=== PATIENT | male | born 1940 | race Caucasian/White ===

== ENCOUNTER 2025-01-26 05:55 | Day surgery (SDC) | payer BC, SELFPAY ==
[2024-12-29 08:34] VITALS: BMI 37.1
[2024-12-29 08:52] LABS: Hematocrit 41.0 % (39.0-52.0); Hemoglobin 13.0 g/dL (13.0-18.0); Mean Corp Hgb Conc. 31.7 g/dL (33.0-37.0); Mean Corpuscular Volume 85.4 fL (80.0-94.0); Nucleated Red Blood Cells % 0 % (-); Platelet Count 209 10^3/uL (130-400); Red Cell Dist. Width 16.5 % (11.5-14.5)
[2024-12-29 09:19] LABS: ALT (SGPT) 27 U/L (0-50); AST (SGOT) 21 U/L (17-59); Albumin 3.8 g/dl (3.5-5.0); Alkaline Phosphatase 73 U/L (38-126); Blood Urea Nitrogen 16 mg/dl (9-20); Calcium 8.7 mg/dl (8.4-10.2); Carbon Dioxide 25 mmol/L (22-30); Chloride 108 mmol/L (98-107); Estimated Creatinine Clearance 83 ml/min; Glucose 160 mg/dl (70-99); Magnesium 1.9 mg/dl (1.6-2.3); Potassium 4.1 mmol/L (3.5-5.1); Sodium 141 mmol/L (135-145); Total Protein 6.3 g/dl (6.3-8.2); eGFR > 60.00
[2025-01-26] VITALS (11 sets, daily range): BP systolic 98–156; BP diastolic 60–113; BMI 35.5
[2025-01-26 07:31] LABS: Glucose - Point of Care 134 mg/dl (70-99)
[2025-01-26 09:03] LABS: ACT-LR - POC 355 Seconds (116-155)
--- NOTE | 2025-01-26 09:26 | ITS.CL.ABL ---
[facility] - Ablation
Ablation
Procedure Report:
ELECTROPHYSIOLOGY ABLATION STUDY
DATE:: January 26, 2025�����������������������������REFERRING: Dr. Rajinder aj
INDICATION: Persistent supraventricular tachycardia in the form of atrial fibrillation.��Presents for pulmonary vein isolation after congestive heart failure admission with A-fib and rapid ventricular response. We just recently performed amiodarone
loading
HISTORY: See H and P.��As above
ANTIARRHYTHMIC DRUG: Amiodarone
PRE-PROCEDURE DONOVAN: No intracardiac thrombus on intracardiac ultrasound
PRESENTING RHYTHM: Atrial fibrillation. On surface appeared somewhat organized even perhaps suggesting atrial flutter but intracardiac recordings demonstrated atrial fibrillation
'TIME-OUT':��called and confirmed.
SEDATION/ANESTHESIA:��provided via the anesthesia department using general anesthesia (LMA).
INTRAVENOUS/ARTERIAL ACCESS:
Right femoral venous -8Fr
Left femoral venous - 8 Fr, 6 Fr
Due to body habitus the right femoral vein presented a challenge in advancing any hardware. Ultimately an Amplatz superstiff long wire was placed through the right femoral venous access site which was at the femoral head and serial dilation with 7
Samoan, 9 Samoan, 11 Samoan, 14 Samoan and ultimately an 18 Samoan dilator with multiple passes allowed the right femoral vein to accept an 18 Samoan short sheath through which we put the fair drive sheath. Euizgt-pd-uules suture was placed in the
right femoral vein and kwfzpt-yy-fjxzi suture failed in the left groin and manual pressure was held. Extended pressure hold was given due to body habitus
Ultrasound guidance for bilateral femoral vein access was utilized by me to obtain access with demonstration of normal anatomy
CHADS-VASC Score:
HAS-Bled Score
PROCEDURE:
1.��A decapolar CS catheter was placed within the CS for mapping and pacing.��This was also used as the reference catheter for the 3-D map.
2. The intracardiac ultrasound catheter was positioned in the RA to identify the FO for targeting of transseptal puncture, assist��in identification of the pulmonary vein ostia, monitoring pre and post ablation pulmonary vein flow velocities,
monitoring for 'bubble' formation during RF application as a sign of thermal injury,��and to monitor for pericardial effusion during mapping and ablation procedure.���Left atrial size, LV ejection fraction, and pulmonary vein flows were monitored
pre and post ablation procedure. The other valves were inspected and found to be free of significant regurgitation or stenosis.
3.��Half of the calculated heparin bolus was administered prior to the first transeptal puncture.��Transseptal puncture was performed to diagnose RA and LA pressure so that safety of LA mapping and ablation could be further assessed, and to access
the left atrium and pulmonary veins for mapping and ablation.��This entailed advancing an 8 Fr SL-1 sheath with dilator into the superior vena cava and withdrawing both (monitoring intracardiac ultrasound, fluoroscopy and tip pressure) with the tip
oriented toward the atrial septum.��The fossa ovalis was engaged (indicated by sudden displacement of the sheath tip as well as tenting of the fossa seen on intracardiac ultrasound).��Left atrial access required a pass with the Brockenbrough needle
extended.��Left atrial catheter position was confirmed by pressure monitoring (RA mean pressure 8 mm Hg and LA mean presure 12 mm Hg), LA saturation (99%),��as well as fluoroscopy.��The sheath was advanced over the dilator and positioned in the left
atrium.��This procedure was repeated for the Agilis sheath.��The remainder of the calculated heparin bolus was administered and heparin was
infused to maintain ACT at 300 -350 seconds throughout the case.
4.��RA pacing was performed via the proximal decapolar poles and LA pacing was performed via the distal decapolr poles.
5. A quadrapolar catheter was first positioned at the His position for His Bundle recording which was tagged via the 3-D Navex sytem, and then passed to the RVA for RV pacing and recording.
6. The Penta spline and grid were placed in each of the LIPV, LSPV, RSPV and the RIPV.��
7.��Next, a 3-D map was created using Navex.���A 3-D reconstructed CT image was compared to the 3-D Navex map to assist in anatomic interpretation, mapping and ablation.��The CT image and the NavX image were fused.
8. A total of 58 lesions were given with all of in basket pose to the 4 pulmonary veins and flower opposed to the roof posterior wall and floor of the left atrium. Atrial fibrillation persisted beyond the all of in basket poses send pulmonary vein
isolation with entrance block in the roof posterior wall and left atrial floor lines were given with A-fib that persisted despite all of these lesion sets. The patient was then converted to sinus bradycardia with a 300 J synchronized biphasic shock
and entrance next block was confirmed in the posterior wall roof and floor the left atrium as well as the 4 pulmonary veins. EP study post procedure did not demonstrate any other tachyarrhythmia.
9. Normal sinus node AV node function were noted. AV Wenke block less than 400 ms. Prior history of TAVR
TOTAL FLOURO TIME: 12.1 minutes
TOTAL RF DURATION: 0 minutes
REVERSAL OF HEPARIN: 40 mg of protamine, slow IV administration
COMPLICATIONS:
None
Intracardiac US shows no pericardial effusion post ablation.
SUMMARY:��
Complex left atrial mapping and ablation.
Isolation of all 4 pulmonary veins as well as left atrial roof posterior wall and floor of the left atrium. The patient was noninducible further tachyarrhythmia.
RECOMMENDATIONS:
1. Ambulate for 4 hours after prolonged venous hold due to body habitus
2. Resume anticoagulation
3.��Continue amiodarone for 6 to 12 months at current dose and if maintains sinus rhythm consider stopping
4.��Will follow throughout the day to consider same-day discharge
Copy to: Dr. Rajinder aj
[2025-01-26 11:30] LABS: Glucose - Point of Care 174 mg/dl (70-99)
== END 2025-01-26 15:15 | disposition home or self-care (01) ==
LOC: CATH 05:55
PROVIDERS: ATTENDING PHYSICIAN Internal Medicine Cardiovascular Disease; FAMILY PHYSICIAN Internal Medicine; OTHER PHYSICIAN Internal Medicine Cardiovascular Disease
DX: I48.0 Paroxysmal atrial fibrillation (principal); I11.0 Hypertensive heart disease with heart failure; E78.5 Hyperlipidemia, unspecified; I35.0 Nonrheumatic aortic (valve) stenosis; E11.59 Type 2 diabetes mellitus with other circulatory complications; G47.33 Obstructive sleep apnea (adult) (pediatric); N40.0 Benign prostatic hyperplasia without lower urinary tract symptoms; M48.00 Spinal stenosis, site unspecified; M10.9 Gout, unspecified; E66.9 Obesity, unspecified; Z68.37 Body mass index [BMI] 37.0-37.9, adult; Z79.899 Other long term (current) drug therapy; Z79.01 Long term (current) use of anticoagulants
CPT/HCPCS: C1732; C1894; C1730; C1769; C1892; C1759; 36415; 75572; 80053; 82962; 83735; 83880; 85025; 85347; 86850; 86900; 86901; 93005; 93656; 93657; C1766; Q9967

== ENCOUNTER 2025-04-02 21:06 | Inpatient (IN) | payer BC, SELFPAY ==
[2025-04-02 21:10] VITALS: BP 126/66
[2025-04-02 21:28] VITALS: BMI 34.0
[2025-04-02 21:57] VITALS: BMI 34.0
--- NOTE | 2025-04-02 22:15 | HPS.HSE ---
Family Physician
-
Family Physician: Tomas Ortega
Chief Complaint
-
back pain
History of Present Illness
84-year-old male past medical history of severe aortic stenosis status post TAVR in 2022, chronic atrial fibrillation status post cardioversion and ablation, diastolic CHF, hypertension, hyperlipidemia, type 2 diabetes, obesity, previous alcohol use
disorder, obstructive sleep apnea, gout, spinal stenosis, chronic back pain, presenting as a transfer from [facility] for endocarditis.
Patient has been having lower back pain ongoing for several months. He saw his orthopedic physician Dr. Huerta for worsening back pain who ordered an outpatient MRI showed findings suspicious for discitis. He has been having fevers and chills and
sweats for the past month. He did not have any numbness or tingling of the lower extremities or gait dysfunction or incontinence. He was advised to come to the emergency room and came to [facility] on 03/31. He was started on empiric
vancomycin/cefepime for presumed endocarditis. He had blood cultures positive for Enterococcus faecalis. He had an echocardiogram which was unremarkable. He had DONOVAN today which showed findings suggesting of left atrial abscess. Patient was
transferred to [facility] for cardiothoracic evaluation.
Patient was seen by neuro and ortho for
He also has chronic right lower extremity edema but has recently had worsening left lower extremity edema. He had venous ultrasound which was negative for DVT at [facility]. He was diuresed.
He denies any chest pain or shortness of breath or dizziness or syncope. He denies any blood in stool or black stool. He denies any back pain at the current time.
He used to drink significant amount of alcohol in the past but only drinks occasionally at the current time. Denies smoking history. He denies history of IV drug use.
Medical History
Past Medical History
Past Medical History: Reports Other (evere aortic stenosis status post TAVR in 2022, chronic atrial fibrillation status post cardioversion and ablation, diastolic CHF, hypertension, hyperlipidemia, type 2 diabetes, obesity, previous alcohol use
disorder, obstructive sleep apnea, gout, spinal stenosis, chronic back pain)
Past Surgical History: Reports Other (TAVR)
Social History
Tobacco: Non-smoker
Alcohol: Occasional
Drug: None
Family History
Family History: Not pertinent
Allergies / Home Medications
Allergies reflects when Allergies were last updated in [facility].
Home Medications with original date entered in [facility]
Allergy/Medication List:
Allergies
Allergy/AdvReac Type Severity Reaction Status Date / Time
No Known Allergies Allergy Verified 12/25/24 08:51
Home Medications
finasteride 5 mg tablet 5 mg PO HS 06/05/22
amiodarone 200 mg tablet 200 mg PO DAILY 12/25/24
apixaban 5 mg tablet (Eliquis) 5 mg PO BID 12/25/24
cholecalciferol (vitamin D3) 125 mcg (5,000 unit) tablet (Vitamin D3) 125 mcg PO DAILY 12/25/24
diltiazem HCl 180 mg capsule,24 hr,extended release 180 mg PO DAILY 12/25/24
empagliflozin 25 mg tablet (Jardiance) 25 mg PO DAILY 12/25/24
metoprolol succinate 100 mg tablet,extended release 24 hr 100 mg PO DAILY 12/25/24
rosuvastatin 10 mg tablet 10 mg PO DAILY 12/25/24
furosemide 20 mg tablet 60 mg PO DAILY 01/26/25
metformin 500 mg tablet 1,000 mg PO BID Diabetes 01/26/25
metoprolol succinate 50 mg tablet,extended release 24 hr 50 mg PO QPM 01/26/25
Review of Systems
-
History Source: Patient
A 12 point ROS was completed and negative except as noted: Yes
Constitutional: Reports No Symptoms
EENT: Reports No Symptoms
Respiratory: Reports No Symptoms
Cardiac: Reports No Symptoms
Abdomen/GI: Reports No Symptoms
: Reports No Symptoms
Musculoskeletal: Reports No Symptoms
Skin: Reports No Symptoms
Neurological: Reports No Symptoms
Endocrine: Reports No Symptoms
Hematologic/Lymphatic: Reports No Symptoms
Psych: Reports No Symptoms
Physical Exam
Vital Signs
Vital Signs
Temp Pulse Resp BP Pulse Ox
98.6 F 54 16 126/66 100
04/02/25 21:27 04/02/25 21:15 04/02/25 21:27 04/02/25 21:10 04/02/25 21:27
Physical Exam
General: Well Developed, Well Nourished and No Apparent Distress
HEENT: NormoCephalic, Moist mucous membranes and Atraumatic
Respiratory: Clear
Cardiac: S1/S2, Regular Rhythm and Murmur; No Rub
GI: Soft, Non Tender, Non Distended and Normal Bowel Sounds; No Organomegaly
Rectal: Deferred by Provider
Musculoskeletal: No Clubbing, No Cyanosis and No Edema
Skin: No Rash
Neuro: Nonfocal/grossly intact
Data Reviewed
-
Lab Data: Labs Reviewed by me
Old Records: Reviewed
Impression/Plan
-
IMPRESSION:
PLAN:
# Enterococcus faecalis bacteremia
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
-DONOVAN showed 3 x 0.5 cm laminar shaped heterogeneous echogenicity in the left atrium from anterior mitral valve insertion consistent with abscess
- Recheck blood cultures
- Continue vancomycin/ceftriaxone
- ID consulted
- Cardiology consulted
- Cardiothoracic surgery consulted
# L2-L3 disc edema possible discitis
- Patient was evaluated by orthopedics at [facility] who considered aspiration of the disc but they thought endocarditis was more likely the source of patient's presentation
-no neurological symptoms
- continue tramadol
# Severe aortic stenosis status post TAVR in 2022
# Left lower extremity lymphedema/less likely cellulitis
-Weeping from left lower extremity from edema
-Venous ultrasound was negative for DVT
- Already on vancomycin/cefepime
Chronic HFrEF
- Continue Lasix 40 mg IV daily
- Continue Jardiance, metoprolol
Chronic atrial fibrillation status post cardioversion/ablation
- Continue amiodarone
- Hold Eliquis, switch to heparin drip in case cardiothoracic surgery is recommended
#Worsening of chronic anemia
-Hemoglobin trend was 9.8 to 8.5 to 9.3
- Transfuse for hemoglobin under 8
- Patient denies any blood in the stool or black stool
Essential hypertension
Hyperlipidemia
- Continue statin
Type 2 diabetes
- Hold metformin
- Insulin sliding scale
- Continue Jardiance
Obesity
Prior alcohol use disorder
- No longer drinks significant alcohol
Obstructive sleep apnea
Gout
Spinal stenosis/chronic back
BPH
- Continue finasteride
Former alcohol use disorder
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
Full code
DVT prophylaxis�heparin drip
Cardiac diet
--- NOTE | 2025-04-02 22:27 | PTCARENOTE ---
Pt admitted to room 2252. Pt NSR on monitor VSS. AAO x4. Pt denies SOB, c/o back/neck pain with movements. Pt was ambulating with x 1 assist and RW. Pt oriented to the room. Call funes within reach
[2025-04-02 23:16] LABS: Hematocrit 27.7 % (39.0-52.0); Hemoglobin 8.8 g/dL (13.0-18.0); Mean Corp Hgb Conc. 31.8 g/dL (33.0-37.0); Mean Corpuscular Volume 86.6 fL (80.0-94.0); Nucleated Red Blood Cells % 0 % (-); Platelet Count 265 10^3/uL (130-400); Red Cell Dist. Width 15.0 % (11.5-14.5)
[2025-04-02 23:51] LABS: Blood Urea Nitrogen 13 mg/dl (9-20); Calcium 8.2 mg/dl (8.4-10.2); Carbon Dioxide 32 mmol/L (22-30); Chloride 99 mmol/L (98-107); Estimated Creatinine Clearance 95 ml/min; Glucose 149 mg/dl (70-99); Magnesium 2.1 mg/dl (1.6-2.3); Potassium 3.8 mmol/L (3.5-5.1); Sodium 135 mmol/L (135-145); eGFR > 60.00
--- NOTE | 2025-04-03 00:19 | CONSULT.CT ---
Consultation
-
Date/Time Consultation Requested: 04/02/25, 23:15
Date/Time Consultation Performed: 04/02/25, 23:30
Requesting Provider: Dr. Carias
Performing Provider: Rafa Hebert PA-C for Dr. Eng
Reason for Consultation: Endocarditis
Patient History
Physicians
Family Physician: Dr. Tomas Ortega
Outpatient Electrical Equipment Tester: Dr. Patel
Inpatient Electrical Equipment Tester: Dr. Jarrell
History of Present Illness
Mr Huynh is a very pleasant 84 yo gentleman with hx of TAVR on 07/13/22 at , chronic paroxysmal a-fib with PVI on 01/26/25, on Eliquis, chronic RBBB, chronic diastolic CHF, DM II, HTN, HLD, ARNIE, DJD with spinal stenosis/chronic lower back pain,
hx of epidural injections, Psoriasis, BPH. He presented to [facility] on 03/31/25 for evaluation of acute on chronic low back pain. Over the past 1-2 months, he has had exacerbation of his back and neck pain and was seen by his orthopedic physician,
Bradley. Outpatient MRI of his back was suggestive of L3-L4 discitis. Over the last 1 month, he also had intermittent fever with chills and likely rigors, followed by feeling hot and sweaty. These sxs have increased in frequency over the last couple of
weeks. He denies having any CP, SOB, lightheadedness, rash or nausea. He noticed constipation over past 4 months and requires stool softener or MOM. His weight is down 10 lbs from last admission on 01/26/25 and 44 lbs from his TAVR admission on
07/14/22.
He was found to have leukocytosis with bandemia and markedly elevated inflammatory markers. He also has new anemia, elevated high-sensitivity trops 51/52 and new 1st degree AVB. Of note, he has chronic RBBB. Blood cultures were positive for
Enterococcus Faecalis, He was treated with Vancomycin and Cefepime. He also had elevated BNP 522 and was treated with 40 iv Lasix daily. He has significant b/l lower extremity edema with weeping and some warmth on the R. US at [facility] ruled out DVT b/l
Echo on 04/01/25 revealed LVEF 60-65%, moderately dilated left atrium, mild mitral valve regurgitation, mildly elevated pulmonary artery systolic pressure. Aortic valve was not well-visualized, appeared to be bioprosthetic TAVR valve with only
trivial aortic insufficiency and elevated mean gradient of 26 mmHg
DONOVAN on 04/02/25 revealed moderately dilated left atrium. There was 3 x 0.5 cm laminar shaped heterogenous echogenicity in the left atrium from anterior mitral valve insertion. This can be consistent with abscess. Less likely thrombus. No obvious
fistula was identified. Bioprosthetic aortic valve was identified. Visualization was limited due to acoustic shadow but left coronary leaflet was thickened with echogenicity. No significant AI was noted. . There was normal RV and LV function and
mild MR.
Mr Huynh was transferred to on 04/02 for further evaluation of endocarditis by CT surgery.
Past Medical History
Past Medical History: Atrial Fib (on Eliquis at home), BPH, CHF, HTN, Hypercholesterolemia, NIDDM, ARNIE (uses CPAP) and Valvular Disease (-hx of severe with TAVR on 07/13/22 at )
-Chronic RBBB
-OA/DJD/Spinal stenosis with chronic back pain
-Class 2 obesity
-Psiriasis
-Gout
-Chronic thrombocytopenia
-Urinary frequency
Past Surgical History
-TAVR on 07/13/22 at
-PVI by Dr. Duran on 01/26/25
-R patellar tendon rupture repair
-Epidural injections for lower back pain by Dr. Huerta
Dental History
-denies any recent dental procedures
Family History
Mother: N/A
Social History
Alcohol: Former
Drug: None
Tobacco: Smoker (cigars)
Allergies
Allergy/AdvReac Type Severity Reaction Status Date / Time
No Known Allergies Allergy Verified 12/25/24 08:51
Home Medications
�Medication �Instructions �Recorded �Confirmed �Type
finasteride 5 mg tablet 5 mg PO HS 06/05/22 01/26/25 History
amiodarone 200 mg tablet 200 mg PO DAILY 12/25/24 01/26/25 History
apixaban 5 mg tablet (Eliquis) 5 mg PO BID 12/25/24 01/26/25 History
cholecalciferol (vitamin D3) 125 125 mcg PO DAILY 12/25/24 12/25/24 History
mcg (5,000 unit) tablet (Vitamin
D3)
diltiazem HCl 180 mg capsule,24 180 mg PO DAILY 12/25/24 01/26/25 History
hr,extended release
empagliflozin 25 mg tablet 25 mg PO DAILY 12/25/24 01/26/25 History
(Jardiance)
metoprolol succinate 100 mg 100 mg PO DAILY 12/25/24 01/26/25 History
tablet,extended release 24 hr
rosuvastatin 10 mg tablet 10 mg PO DAILY 12/25/24 01/26/25 History
furosemide 20 mg tablet 60 mg PO DAILY 01/26/25 01/26/25 History
metformin 500 mg tablet 1,000 mg PO BID Diabetes 01/26/25 01/26/25 History
metoprolol succinate 50 mg 50 mg PO QPM 01/26/25 01/26/25 History
tablet,extended release 24 hr
Review of Systems
-
History Source: Patient and Transfer Record
General: Reports Fever, Weight Loss, Night Sweats and Chills
HEENT: Reports No Symptoms
Respiratory: Reports No Symptoms
Cardiac: Reports No Symptoms and Known Vascular Disease
Abdomen/GI: Reports Constipation (for the past 4 months, requires stool softener or MOM.)
: Reports Frequency
Musculoskeletal: Reports Joint Pain and Edema
Skin: Reports Other (weeping lower extremities b/l with chronic 3+ b/l leg edema)
Neurological: Reports Headaches
Vascular: Reports No Symptoms
Physical Exam
Vital Signs
Temp 98.6 F 04/02/25 21:27
Temp route: Oral 04/02/25 21:27
Pulse 54 04/02/25 21:15
Rhythm: Normal sinus rhythm 04/02/25 21:30
Resp Rate 16 04/02/25 21:27
Blood pressure 126/66 04/02/25 21:10
Blood pressure extremity used: Right upper arm 04/02/25 21:27
Position: Sitting 04/02/25 21:27
MAP (cuff-Sloane Monitor) 85 04/02/25 21:10
SaO2 100 04/02/25 21:27
Nasal Cannula flow liters per minute 2 04/02/25 21:30
Can the patient verbally communicate their pain? Yes 04/02/25 21:42
Pain scale ratin 04/02/25 21:42
Actual Weight 230 lb 6.129 oz 04/02/25 21:28
Body Mass Index (BMI) 34.0 04/02/25 21:28
Labs
Abnormal Lab Results
04/02/25 04/03/25
23:06 00:24
WBC 13.5 H 14.5 H
RBC 3.20 L 3.33 L
Hgb 8.8 L 9.0 L
Hct 27.7 L 28.7 L
MCHC 31.8 L 31.4 L
RDW 15.0 H 15.1 H
Abs Immat Gran (auto) 0.2 H
Absolute Neuts (auto) 11.2 H
Absolute Lymphs (auto) 0.9 L
Absolute Monos (auto) 1.2 H
Immature Gran % 1.1 H
Neutrophils % 83.0 H
Lymphocytes % 6.8 L
APTT 45.6 H
Carbon Dioxide 32 H
Glucose 149 H
Calcium 8.2 L
Exam
General: Well Developed, Well Nourished and No Apparent Distress
HEENT: Normocephalic, Anicteric, PERRLA and EOMI
Neck: Trachea Midline
Respiratory: Other (decreased breath sounds b/l)
Cardiac: S1/S2 and Regular Rhythm
GI: Soft, Non Tender, Non Distended and Normal Bowel Sounds
Skin: Warm and Dry
Neuro: Awake, AO x 3, No Motor Deficits and Nonfocal/Grossly Intact
Extremities: Other (3+ lower extremity edema b/l with redness, weaping and chronic skin changes b/l. There's warmth at R distal díaz )
Psych: Calm
Assessment / Plan
-
Impression:
-transferred from [facility] on 04/02/25 for Endocarditis.
-leukocytosis/elevated bands/elevated ESR
-Blood cx at [facility] with Enterococcus Faecalis, treated with Vanco and Cefepime
-DONOVAN 04/02 at [facility] with 3 x 0.5 cm laminar shaped heterogenous echogenicity in the left atrium from anterior mitral valve insertion, suspicious for abscess
-Echo 04/01 at [facility] with elevated aortic valve mean gradient of 26 mmHg
-s/p TAVR on 07/13/22
-LVEF 60-65%
-new anemia/weight loss
-new 1st degree AVB
-chronic RBBB
-b/l 2-3+ leg edema (no DVT b/l by US at [facility])
-mild MR
-acute on chronic diastolic CHF
-acute on chronic lower back pain with hx of epidural injections
-outpatient MRI with L3-L4 discitis
-paroxysmal a-fib, s/p PVI 01/26/25, on Eliquis at home
-HTN/HLD
-DMII
-class 1 obesity
-ARNIE, uses CPAP
-psoriasis
-gout
-hx thrombocytopenia
-constipation/hx diverticulosis
-urinary frequency
-smoker (cigars)
-former EtOH
-repair of R patellar tendon fracture
-BPH
Plan:
-continue Abx as per ID
-follow blood cx
-follow ECGs (new 1st degree AVB, known RBBB)
-anemia, follow Hg, consider hematest stool/abdominal CT/?GI eval
-on iv Heparin for paf. Isabela chappell
-will review findings with Dr. Eng who will offer further recommendations
Data Reviewed
-
EKG: Tracing Personally Visualized and interpreted
Echo: Report Reviewed by me
Ultrasound: Report Reviewed by me
MRI: Report Reviewed by me
Labs: Labs Reviewed by me
Old Records: Reviewed
[2025-04-03] MEDS: ULTRAM 50 MG PO ×3 (00:30→21:36)
[2025-04-03] MEDS: LIDOCAINE 4% PATCH 1 PATCH TOPICAL ×2 (00:30→21:37)
[2025-04-03] MEDS: STERILE WATER FOR INJECTION 20 ML IV ×2 (00:31→12:26)
[2025-04-03] MEDS: ROCEPHIN 2000 MG IV ×2 (00:31→12:26)
[2025-04-03 00:43] LABS: Hematocrit 28.7 % (39.0-52.0); Hemoglobin 9.0 g/dL (13.0-18.0); Mean Corp Hgb Conc. 31.4 g/dL (33.0-37.0); Mean Corpuscular Volume 86.2 fL (80.0-94.0); Platelet Count 272 10^3/uL (130-400); Red Cell Dist. Width 15.1 % (11.5-14.5)
[2025-04-03 00:49] LABS: APTT 45.6 Sec (23.4-35.0)
[2025-04-03] MEDS: VANCOCIN 530 MG IV (01:10)
[2025-04-03] MEDS: HEPARIN 25000 UNITS/250 ML IV (01:45)
[2025-04-03 04:22] VITALS: BP 103/52
[2025-04-03 07:32] VITALS: BP 112/62
[2025-04-03 08:00] VITALS: BMI 34.0
[2025-04-03 08:36] LABS: Glucose - Point of Care 145 mg/dl (70-99)
[2025-04-03 08:38] LABS: Hematocrit 26.0 % (39.0-52.0); Hemoglobin 8.3 g/dL (13.0-18.0); Mean Corp Hgb Conc. 31.9 g/dL (33.0-37.0); Mean Corpuscular Volume 86.7 fL (80.0-94.0); Nucleated Red Blood Cells % 0 % (-); Platelet Count 257 10^3/uL (130-400); Red Cell Dist. Width 15.3 % (11.5-14.5)
[2025-04-03] MEDS: NOVOLOG FLEXPEN-LOW RESISTANCE SC ×2 (08:52→17:30)
[2025-04-03 08:55] LABS: ALT (SGPT) 34 U/L (0-50); AST (SGOT) 27 U/L (17-59); Albumin 2.5 g/dl (3.5-5.0); Alkaline Phosphatase 121 U/L (38-126); Blood Urea Nitrogen 13 mg/dl (9-20); Calcium 7.9 mg/dl (8.4-10.2); Carbon Dioxide 30 mmol/L (22-30); Chloride 101 mmol/L (98-107); Estimated Creatinine Clearance 111 ml/min; Glucose 130 mg/dl (70-99); Potassium 3.8 mmol/L (3.5-5.1); Sodium 134 mmol/L (135-145); Total Protein 5.2 g/dl (6.3-8.2); eGFR > 60.00
[2025-04-03] MEDS: CARDIZEM CD 180 MG PO (09:02)
[2025-04-03] MEDS: PACERONE 200 MG PO (09:02)
[2025-04-03] MEDS: TOPROL XL 100 MG PO (09:02)
[2025-04-03] MEDS: CRESTOR 10 MG PO (09:02)
[2025-04-03] MEDS: FARXIGA 10 MG PO (09:02)
--- NOTE | 2025-04-03 09:02 | W.PN.HOSP.TC ---
Today's Communication/Plan
-
Will obtain a chest x-ray and BNP
Continue with IV Lasix
Continue with antibiotics as prescribed. ID eval pending
Continue with IV heparin and lieu of Eliquis
Assessment / Plan
Assessment / Plan
# Enterococcus faecalis bacteremia
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
-DONOVAN showed 3 x 0.5 cm laminar shaped heterogeneous echogenicity in the left atrium from anterior mitral valve insertion consistent with abscess
- Recheck blood cultures-pending
- Continue vancomycin/ceftriaxone
- ID consulted
- Cardiology consulted
- Cardiothoracic surgery consulted
# L2-L3 disc edema possible discitis
- Patient was evaluated by orthopedics at [facility] who considered aspiration of the disc but they thought endocarditis was more likely the source of patient's presentation
-no neurological symptoms
- continue tramadol
- Improving pain
# Severe aortic stenosis status post TAVR in 2022
# Left lower extremity lymphedema/less likely cellulitis
-Weeping from left lower extremity from edema
-Venous ultrasound was negative for DVT
- Already on vancomycin/cefepime
- Continue with Lasix
Chronic HFrEF-suspect a mild acute decompensation-patient now requiring oxygen and has bilateral crackles.
- Check a chest x-ray and BNP
- Continue Lasix 40 mg IV daily
- Continue Jardiance, metoprolol
Chronic atrial fibrillation status post cardioversion/ablation
- Continue amiodarone
- Hold Eliquis, switch to heparin drip in case cardiothoracic surgery is recommended
#Worsening of chronic anemia
-Hemoglobin trend was 9.8 to 8.5 to 9.3
- Transfuse for hemoglobin under 8
- Patient denies any blood in the stool or black stool
Essential hypertension
Hyperlipidemia
- Continue statin
Type 2 diabetes
- Hold metformin
- Insulin sliding scale
- Continue Jardiance
Obesity
Prior alcohol use disorder
- No longer drinks significant alcohol
Obstructive sleep apnea
Gout
Spinal stenosis/chronic back
BPH
- Continue finasteride
Former alcohol use disorder
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
Full code
DVT prophylaxis�heparin drip
Cardiac diet
Anticipated Discharge: > 48 hours
Subjective/Interval History
-
Date of Service: April 03, 2025
Denies any chest pain. No nausea or vomiting.
Denies any shortness of breath. He is new to oxygen. Denies any cough.
His back pain has gotten somewhat better.
He has left shoulder discomfort in the back ongoing for a month. He has been sleeping in a recliner the last month. No radiation to the left arm.
No fever or chills today.
Objective Data
-
Labs:
Laboratory Results
04/02/25 04/03/25 04/03/25
23:06 00:24 08:18
WBC 13.5 H 14.5 H
Hgb 8.8 L 9.0 L
Hct 27.7 L 28.7 L
Plt Count 265 272
APTT 45.6 H Cancelled
Sodium 135 134 L
Potassium 3.8 3.8
Chloride 99 101
Carbon Dioxide 32 H 30
BUN 13 13
Creatinine 0.7 0.6 L
Glucose 149 H 130 H
Calcium 8.2 L 7.9 L
Total Bilirubin 0.4
AST 27
ALT 34
Alkaline Phosphatase 121
04/03/25 04/03/25
08:19 08:44
WBC 12.9 H
Hgb 8.3 L
Hct 26.0 L
Plt Count 257
APTT Pending
Sodium
Potassium
Chloride
Carbon Dioxide
BUN
Creatinine
Glucose
Calcium
Total Bilirubin
AST
ALT
Alkaline Phosphatase
Vital Signs:
Vital Signs
Temp Pulse Resp BP Pulse Ox
100.2 F 80 18 103/52 94
04/03/25 07:00 04/03/25 04:30 04/03/25 07:00 04/03/25 04:22 04/03/25 07:00
I&O
04/02/25 04/03/25 04/04/25
06:59 06:59 06:59
Intake Total 750 / 750
Output Total 350 / 350 400 / 400
Balance 400 / 400 -400 / -400
Physical Exam
-
General: No Apparent Distress
Respiratory: Crackles (Bibasilar) and Non Labored Respirations; Negative Wheezes or Accessory Resp Muscle Use
Cardiac: Regular Rhythm, S1/S2 and Murmur (Systolic)
GI: Soft
Musculoskeletal: Edema, Left Upper Extrem, Edema, Right Lower Extrem (2+) and Other (Full range of motion's in the left shoulder without pain. Cervical neck- no cervical tenderness)
Neuro: AO x 3
Psych: Calm
Data Reviewed
-
Labs: Labs Reviewed by me
[2025-04-03] MEDS: LASIX 40 MG IV (09:03)
[2025-04-03 09:40] LABS: APTT 56.1 Sec (23.4-35.0)
--- NOTE | 2025-04-03 10:00 | PTCARENOTE ---
Pt received this am awake, alert and oriented. No c/o of any pain at this time
--- NOTE | 2025-04-03 10:34 | CON.CAR ---
Addendum entered and electronically signed by Kenneth Cai MD 04/03/25 14:44:
Patient seen, interviewed and examined by me.
Fatigued, but well-appearing, no acute distress
Regular rate and rhythm with normal S1 and S2, no S3 no S4. There is a grade 1/6 apical holosystolic murmur and no rubs. PMI is normally placed.
Lungs are clear to auscultation bilaterally without wheezes rales or rhonchi.
Abdomen soft nontender nondistended with normoactive bowel sounds
Extremities show trace pretibial edema bilaterally no clubbing or cyanosis.
Neurologic exam is grossly nonfocal.
Testing at [facility] included:
- Outpatient MRI of his back was suggestive of L3-L4 discitis
- Echo on 04/01/25 revealed LVEF 60-65%, moderately dilated left atrium, mild mitral valve regurgitation, mildly elevated pulmonary artery systolic pressure. Aortic valve was not well-visualized, appeared to be bioprosthetic TAVR valve with only
trivial aortic insufficiency and elevated mean gradient of 26 mmHg
- DONOVAN on 04/02/25 revealed moderately dilated left atrium. There was 3 x 0.5 cm laminar shaped heterogenous echogenicity in the left atrium from anterior mitral valve insertion. This can be consistent with abscess. Less likely thrombus. No obvious
fistula was identified. Bioprosthetic aortic valve was identified. Visualization was limited due to acoustic shadow but left coronary leaflet was thickened with echogenicity. No significant AI was noted. . There was normal RV and LV function and
mild MR.
Over the last 1 month, he also had intermittent fever with chills and likely rigors, followed by feeling hot and sweaty. These sxs have increased in frequency over the last couple of weeks.
Blood cultures were positive for Enterococcus Faecalis, Vancomycin and Cefepime were initiated at [facility].
He is transferred to [facility] for CT surgical evaluation regarding possible left atrial abscess
His and daughter present. They describe that he is exhibiting marked fatigue and even some brief periods of generalized disorientation over the past week or so.
CT scan of the head was obtained today demonstrating no acute intracranial hemorrhage or transcortical infarct.
It is very possible the symptoms are related to his bacteremia/sepsis.
If there is any concern for acute neurologic deficits, consideration for MRI of the brain.
If there were any findings to suggest acute CVA, this along with the suspected cardiac imaging findings would present a more urgent situation
Regarding the concerning finding described on transesophageal echo, will need to review echocardiographic images. Will try to obtain from [facility], otherwise we will need to consider repeat transesophageal echocardiogram here on
Saturday.
He remains on antibiotics for Enterococcus faecalis bacteremia/sepsis and possible bacterial discitis as well as possible cardiac infection/abscess as described on the transesophageal echocardiogram from [facility].
Await further CT surgical evaluation/recommendation, but evaluation of imaging will be very important. Will try to obtain copies of the echocardiographic images if not we will need to repeat imaging here.
There can be consideration for PET scanning although I am not sure [facility] has the appropriate PET protocol to evaluate for endocarditis.
Original Note:
Consultation
Consultation Request
Date/Time Consultation Requested: 04/03/2025
Date/Time Consultation Performed: 04/03/2025
Requesting Provider: Dr. Guajardo
Performing Provider: Dr. Kenneth Cai
Reason for Consultation: Abnormal echo concerning for perivalvular abscess
Medical History
-
History of Present Illness:
Patient was brought to [facility] as a transfer from [facility] for possible endocarditis and cardiology is now consulted. Patient was admitted to [facility] on 03/31/2025 with back pain and in March he had an outpatient MRI concerning for L3-L4 discitis. Patient
has chronic back pain and receives intermittent outpatient epidural injections. In the ER there was concern for infection and patient had blood cultures that showed Enterococcus faecalis and patient was started on vancomycin and cefepime. Patient
had echo on 04-24 and then DONOVAN on 04/02/2025 that was concerning for a laminar shaped heterogeneous echogenicity in the ANDREW from anterior mitral valve insertion that was suspicious for an abscess, but there was no evidence of fistula. Patient was
transferred to [facility] for evaluation by CT surgery team. Patient had previous TAVR here in 2022 and more recently had PVI on 01/26/2025. He remains in SR now on his usual dose of amiodarone 200 mg daily. He takes Eliquis 5 mg BID for OAC, but was
transition to heparin gtt while at [facility].
PMH:
s/p TAVR for severe 2022
Chronic back pain with outpatient MRI suggesting L3-L4 discitis 03/2025
s/p outpatient epidural injections for low back pain
Dysarthria and confusion 04/03/2025
Chronic HFpEF
cRBBB
Paroxysmal A-fib
s/p PVI 01/26/2025
Chronic Eliquis OAC
Chronic amiodarone therapy
Hyperlipidemia
Past Medical History
Past Medical History: Other (In HPI)
Past Surgical History: Cardiac (TAVR 07/13/2022, PVI 01/26/2025) and Tonsilectomy
Social History
Tobacco: Other (Continues to smoke cigars)
Alcohol: Former
Drug: None (Denies IVDA)
Personal:
Living: With Family
Family History
Family History: Cancer (Daughter with breast cancer)
Allergies / Home Medications
Allergy/AdvReac Type Severity Reaction Status Date / Time
No Known Allergies Allergy Verified 12/25/24 08:51
�Medication �Instructions �Recorded �Confirmed �Type
finasteride 5 mg tablet 5 mg PO HS 06/05/22 01/26/25 History
amiodarone 200 mg tablet 200 mg PO DAILY 12/25/24 01/26/25 History
apixaban 5 mg tablet (Eliquis) 5 mg PO BID 12/25/24 01/26/25 History
cholecalciferol (vitamin D3) 125 125 mcg PO DAILY 12/25/24 12/25/24 History
mcg (5,000 unit) tablet (Vitamin
D3)
diltiazem HCl 180 mg capsule,24 180 mg PO DAILY 12/25/24 01/26/25 History
hr,extended release
empagliflozin 25 mg tablet 25 mg PO DAILY 12/25/24 01/26/25 History
(Jardiance)
metoprolol succinate 100 mg 100 mg PO DAILY 12/25/24 01/26/25 History
tablet,extended release 24 hr
rosuvastatin 10 mg tablet 10 mg PO DAILY 12/25/24 01/26/25 History
furosemide 20 mg tablet 60 mg PO DAILY 01/26/25 01/26/25 History
metformin 500 mg tablet 1,000 mg PO BID Diabetes 01/26/25 01/26/25 History
metoprolol succinate 50 mg 50 mg PO QPM 01/26/25 01/26/25 History
tablet,extended release 24 hr
Review of Systems
-
History Source: Patient
All other systems: Negative unless noted
Physical Exam
Vital Signs
Temp Pulse Resp BP Pulse Ox
100.2 F 80 18 103/52 94
04/03/25 07:00 04/03/25 04:30 04/03/25 07:00 04/03/25 04:22 04/03/25 07:00
GEN: Initially dysarthric, improved upon return to supine position. AAO x 3
HEENT: EOMI, MMM
LUNGS: 2 L NC. CTA B/L, no wheeze
CV: SR on telemetry. Reg, S1/S2, no murmur
ABD: soft, BS+, NT, ND
EXT: +3 right greater than left LE edema and erythema no edema
NEURO: Dysarthria, no lateralizing weakness
SKIN: No rash
Lab Results
04/03/25 08:19
04/03/25 08:18
Impression / Plan
-
PCP: Dr. Gordon Ortega
Cardiology: Dr. Patel
Impression:
Transferred from [facility] to [facility] for concern for endocarditis 04/02/2025
Admitted to [facility] with back pain 03/31/2025
Enterococcus faecalis bacteremia seen at [facility] 03/31/2025
Abnormal DONOVAN concerning for abscess in the ANDREW from the anterior mitral valve insertion 04/02/2025
s/p TAVR for severe 2022
Chronic back pain with outpatient MRI suggesting L3-L4 discitis 03/2025
s/p outpatient epidural injections for low back pain
Dysarthria and confusion 04/03/2025
Chronic HFpEF
cRBBB
Paroxysmal A-fib
s/p PVI 01/26/2025
Chronic Eliquis OAC
Chronic amiodarone therapy
Hyperlipidemia
Echo 04/01/2025: EF 60 to 65%, mild MR, tissue AVR with trivial aortic insufficiency
DONOVAN 04/02/2025: 3 x 0.5 cm laminar shaped heterogeneous echogenicity in the LA from anterior mitral valve insertion concerning for abscess and less likely thrombus, no obvious fistula, tissue AVR visualization limited due to acoustic shadowing, but
left coronary leaflet thickened with echogenicity, but no AI, mild MR
Plan:
-Patient was brought to [facility] as a transfer from [facility] for possible endocarditis and cardiology is now consulted. Patient was admitted to [facility] on 03/31/2025 with back pain and in March he had an outpatient MRI concerning for L3-L4 discitis. Patient
has chronic back pain and receives intermittent outpatient epidural injections. In the ER there was concern for infection and patient had blood cultures that showed Enterococcus faecalis and patient was started on vancomycin and cefepime. Patient
had echo on 04-24 and then DONOVAN on 04/02/2025 that was concerning for a laminar shaped heterogeneous echogenicity in the ANDREW from anterior mitral valve insertion that was suspicious for an abscess, but there was no evidence of fistula. Patient was
transferred to [facility] for evaluation by CT surgery team. Patient had previous TAVR here in 2022 and more recently had PVI on 01/26/2025. He remains in SR now on his usual dose of amiodarone 200 mg daily. He takes Eliquis 5 mg BID for OAC, but was
transition to heparin gtt while at [facility].
-ECG from 04/02/2025 is reviewed by me and looks like SR with RBBB and QTc 526 ms
-Telemetry reviewed by me looks like SR
-Patient was dysarthric and confused when I entered the room, this improved with changing from seated to supine position within the bed, but patient was aware of his dysarthria and confusion and says that is not his baseline. Conferred with
hospitalist attending via TT and we made a plan to check CT of the head without contrast in light of dysarthria and endocarditis. CT of the head ordered by me urgently.
-Patient was seen in consultation by the CT surgery team and is waiting to speak with the surgeon, but DONOVAN suggesting possible abscess in the LA from anterior mitral valve insertion.
-Ceftriaxone and vancomycin has been continued, ampicillin was added as well. ID is following and repeat cultures are pending.
-Likely no need to repeat DONOVAN, but could consider PET imaging
-Patient with known paroxysmal A-fib, he had a successful PVI 01/26/2025 and remains in SR.
-Continue amiodarone 200 mg daily
-Outpatient dose of Eliquis is on hold and he has heparin gtt running
--- NOTE | 2025-04-03 10:41 | CON.ID ---
Consultation
-
Date/Time Consultation Requested: 04/02/25 23:44
Date/Time Consultation Performed: 04/03/25 10:43
Requesting Provider: Dr Carias
Performing Provider: Dr Bullard
Reason for Consultation: aortic abscess
Chief Complaint / Past History
Chief Complaint
back pain
History of Present Illness
Mr Huynh is an 84 year old male with history of s/p TAVR 2022, DM2, transferred here from [facility] for endocarditis. Patient reports lower back pain for several months, then 1 month of intermittent fevers/chill. He has lost 10 lbs
unintentionally. he saw Dr Huerta his orthopedist, he was found to have findings suspicious for discitis of L3-L4 on MRI and was referred to the ER - presented to [facility] 03/31. He had blood cultures that grew E faecalis by report. He was
initially started empirically on vancomycin and cefepime, unclear if sensitivities were available. I called the [facility] lab [phone] and was not able to speak with a person, I did leave a message including my cell phone and request to
call back with sensitivities. EKG showed a new 1st degree AV block, chronic RBBB. He had a TTE that was unremarkable but DONOVAN suggestive of left atrial abscess. 3 x 0.5 cm laminar shaped heterogenous echogenicity in the left atrium from anterior
mitral valve insertion. This can be consistent with abscess. Less likely thrombus. No obvious fistula was identified. The AV valve was limited bt L coronary leaflet was thickened with echogenicity. and he was transferred here for CT surgery
evaluation. Aspiration of the disc was considered but it was felt to be secondary to endocarditis and was deferred. He denies any chest pain, shortness of breath, lightheadedness rash or nausea. He has significant bilateral lower extremity edema
with weeping. Denies any recent dental procedures. History is obtained from electronic chart review, I was unable to locate [facility] records on the paper or electronic charts today.
Past History
Additional Past Medical History:
Atrial Fib (on Eliquis at home), BPH, CHF, HTN, Hypercholesterolemia, NIDDM, ARNIE (uses CPAP) and Valvular Disease (-hx of severe with TAVR on 07/13/22 at )
-Chronic RBBB
-OA/DJD/Spinal stenosis with chronic back pain
-Class 2 obesity
-Psiriasis
-Gout
-Chronic thrombocytopenia
-Urinary frequency
Additional Past Surgical History:
-TAVR on 07/13/22 at
-PVI by Dr. Duran on 01/26/25
-R patellar tendon rupture repair
-Epidural injections for lower back pain by Dr. Huerta
Allergy History:
No Known Allergies Allergy (Verified 12/25/24 08:51)
Medications Reviewed: Yes
Social History
Tobacco: Smoker
Alcohol: Former
Drug: None
Family History
Family History: Not Pertinent
Review of Systems
Review of Systems
General: Fever and Chills
Vital Signs
Temp Pulse Resp BP Pulse Ox
100.2 F 80 18 103/52 94
04/03/25 07:00 04/03/25 04:30 04/03/25 07:00 04/03/25 04:22 04/03/25 07:00
Physical Exam
Physical Exam
Constitutional: No Acute Distress
Cardiovascular: Regular Rate, S1/S2 and Murmur (loudest at the RUSB); Negative Rub
Pulmonary: Clear and Symmetric; Negative Wheezes, Rales or Rhonchi
Gastrointestinal: Soft, Non Tender, Non Distended and Normal Bowel Sounds
Extremities: Negative Splinter Hemorrhage or Janeway Lesions
Skin: Warm and Dry; Negative Rash or Jaundice
Lab / Diagnostic Study Results
04/03/25 08:19
04/03/25 08:18
Abs Immat Gran (auto) 0.2 10^3/uL (0-0.05) H 04/03/25 08:19
Absolute Neuts (auto) 10.5 10^3/uL (1.4-6.5) H 04/03/25 08:19
Absolute Lymphs (auto) 1.0 10^3/uL (1.2-3.4) L 04/03/25 08:19
Absolute Monos (auto) 1.2 10^3/uL (0.1-0.6) H 04/03/25 08:19
Absolute Basos (auto) 0.0 10^3/uL (0-0.2) 04/03/25 08:19
Immature Gran % 1.2 % (0-0.5) H 04/03/25 08:19
Neutrophils % 81.5 % (42.2-75.2) H 04/03/25 08:19
Lymphocytes % 7.8 % (20.5-51.1) L 04/03/25 08:19
Monocytes % 9.1 % (1.7-9.3) 04/03/25 08:19
Eosinophils % 0.1 % (0-6) 04/03/25 08:19
Basophils % 0.3 % (0-2) 04/03/25 08:19
Microbiology Results
Micro:
04/03/25 00:24 Blood Culture - Pending
Blood/Venous
04/02/25 23:04 Blood Culture - Pending
Blood/Venous
04/02/25 23:04 MRSA Screen - Pending
Nose
Assessment / Plan
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
L2/L3 discitis - suspected due to E Faecalis
- I was unable to locate paper records on the patients chart - I called the [facility] lab [phone] and was not able to speak with a person, I did leave a message including my cell phone and request to call back with the sensitivities.
Additionally I put in an urgent records request.
- unclear if vancomycin was chosen for resistance or simply as part of the empiric regimen
- continue vancomycin while clarifying the cultures - pharmacy to dose to prevent toxicity
- add ampicillin 2 gm iv q4 hours, continue the ceftriaxone 2 gm IV q12
- blood cultures x2 here are in progress
- follow up CT surgery recommendations - if patient is taken for surgery please send aerobic and anaerobic cultures
Lower extremity edema
- without evidence of infection
- compression
--- NOTE | 2025-04-03 10:47 | PHA.VAN.IN ---
Assessment
- Assessment
Renal Function: Appears similar to baseline
Concomitant Antimicrobials: ceftriaxone
AUC Dosing Plan
- Dosing Variables
Dosing Weight (kg): 104.5
Dosing CrCl (ml/min): 100
Vd coefficient (L/kg): 0.7
- Empiric Dosing
Initial / Loading Dose: 1500mg
Maintenance Regimen: 1250mg q12h
Estimated AUC (mcg*h/mL): 417
Estimated Peak (mcg*h/mL): 26.3
Estimated Trough (mcg/ml): 10.5
Estimated Half Life (H): 7.9
random =12.3, given unknown history of vanco level ordered after loading dose
- Monitoring
No levels ordered at this time: consider at steady states
Pharmacokinetics Vancomycin I
- -
Patient Age: 84
Patient Sex: Male
Vancomycin Day #: 1 (UNSURE OF LENGTH OF VANCO PATIENT CAME FROM [facility] ON IT)
Indication: Endocarditis
Requesting Provider: Dr. Bullard
Pertinent Antimicrobial Allergies:
nkda
Height / Weight:
Height 5 ft 9 in
Actual Weight 104.5 kg
IBW in k.7
- Vital Signs / Lab Results
Temp Pulse Resp BP Pulse Ox
100.2 F 80 18 103/52 94
04/03/25 07:00 04/03/25 04:30 04/03/25 07:00 04/03/25 04:22 04/03/25 07:00
Lab Results - Hematology
04/02/25 04/03/25 04/03/25
23:06 00:24 08:19
WBC 13.5 H 14.5 H 12.9 H
Lab Results - Chemistry
04/02/25 04/03/25
23:06 08:18
BUN 13 13
Creatinine 0.7 0.6 L
Estimated Creat Clear 95 111
Albumin 2.5 L
[2025-04-03 11:22] VITALS: BP 96/54
[2025-04-03] MEDS: AMPICILLIN 108 MG IV ×3 (11:46→21:36)
[2025-04-03 12:04] LABS: Glucose - Point of Care 180 mg/dl (70-99)
[2025-04-03] MEDS: NOVOLOG FLEXPEN-LOW RESISTANCE 1 UNITS SC (12:05)
[2025-04-03 12:20] LABS: Glycohemoglobin (HgbA1c) 6.9 % (4.0-5.6)
[2025-04-03 14:51] LABS: Glucose - Point of Care 175 mg/dl (70-99)
[2025-04-03 15:10] VITALS: BP 107/59
[2025-04-03 17:15] LABS: Glucose - Point of Care 128 mg/dl (70-99)
[2025-04-03 17:35] LABS: APTT 62.2 Sec (23.4-35.0)
--- NOTE | 2025-04-03 18:00 | PTCARENOTE ---
Pt noted to have intermittent episodes of trouble with word finding and orientation to time and place. Pt sent for a CT of the head then later for an MRI. Pt completely oriented at this time. [facility] completed. Dr. Guajardo and DR. Cia aware of pt's
status.
[2025-04-03] MEDS: VANCOCIN 275 MG IV (18:49)
[2025-04-03 19:21] VITALS: BP 124/61
--- NOTE | 2025-04-03 19:37 | W.PN.UPDATE ---
Update Note
Progress Note Update
RN called with results of Brain MR w/o contrast report
MRI IMPRESSION:
1. ACUTE EMBOLIC DISEASE with MULTIPLE SMALL ACUTE ISCHEMIC INFARCTS in both cerebral hemispheres.
2. Small 7 mm subacute intraparenchymal hemorrhage in the lateral right parietal lobe.
3. Mild periventricular white matter leukoaraiosis in the frontal lobes.
4. Mild diffuse cerebral volume loss.
5. Mild paranasal sinus mucosal disease.
TT to on-call Neurology for recommendations.
On-call Neurology, Dr. Becker, at bedside to evaluate patient. Requested heparin gtt be placed on hold. Stat repeat Head CT w/o IV contrast ordered. Patient taken for stat Head CT.
Patient neurological exam is: Patient is awake, alert and oriented x 3. He is able to follow commands and answer questions appropriately. There is no aphasia or dysarthria. The cranial nerves II-XII are grossly intact. The motor strength is grossly
5/5 bilaterally in the upper and lower extremities. Sensations are grossly intact bilaterally. There is no limb ataxia seen.
Per preliminary read by [facility]. Impression: No acute intracranial hemorrhage, mass or mass-effect. Skull intact.
Reviewed findings with Dr. Becker, continue to hold heparin gtt at this time due to infective embolic and the risk of hemorrhagic conversion of ischemic strokes is high in these cases if the patient is on IV heparin. Heparin gtt remains on hold.
--- NOTE | 2025-04-03 19:38 | CON.NEURO4 ---
Consultation - Neurology 4
-
CONSULTING PHYSICIAN: Thomas Becker MD
REFERRING PHYSICIAN: Noel Guajardo MD
DICTATED BY: Thomas Becker MD
DATE/TIME OF REQUEST: 06/03/2025
DATE/TIME OF CONSULTATION: 06/03/2025
Reason for Consultation: Speech difficulty.
Assessment and Plan:
The patient is an 84 years old male with a past medical history of severe aortic stenosis status post TAVR in 2022, chronic atrial fibrillation status post cardioversion and ablation, hypertension, hyperlipidemia, type 2 diabetes, who was
transferred from an outside hospital for endocarditis.
# Enterococcus faecalis bacteremia
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
-DONOVAN showed 3 x 0.5 cm laminar shaped heterogeneous echogenicity in the left atrium from anterior mitral valve insertion consistent with abscess
- Recheck blood cultures-pending
- Continue vancomycin/ceftriaxone
- ID consulted
- Cardiology consulted
- Cardiothoracic surgery consulted
MRI brain raised the concern for intraparenchymal hemorrhage but the repeat head CT did not show hemorrhage. MRI brain shows acute embolic infarcts which are likely 2/2 infective emboli and the risk of hemorrhagic conversion of ischemic strokes is
high in these cases if the patient is on IV heparin. Advise to hold IV heparin. Need to discuss the risks and benefits of IV heparin drip with cardiothoracic surgery, cardiology and ID.
History of Present Illness:
The patient is an 84 years old male with a past medical history of severe aortic stenosis status post TAVR in 2022, chronic atrial fibrillation status post cardioversion and ablation, hypertension, hyperlipidemia, type 2 diabetes, who was
transferred from an outside hospital for endocarditis. The patient had transient word finding difficulty and CT head did not show an acute infarct or hemorrhage. MRI brain was done that showed acute embolic disease with multiple small acute
ischemic infarcts in both cerebral hemispheres. Also there was a small 7 mm subacute intraparenchymal hemorrhage reported in the lateral right parietal lobe seen on the MRI brain. The patient says that he is doing well and he denies any speech
difficulty or any focal weakness of arms and legs.
Past Medical History: Severe aortic stenosis status post TAVR in 2022, chronic atrial fibrillation status post cardioversion and ablation, hypertension, hyperlipidemia, type 2 diabetes, who was transferred from an outside hospital for endocarditis.
Review of Symptoms:
The patient denies headache, dizziness, chest pain, fever, chills, nausea, vomiting and diarrhea.
Neurologic Examination:
The patient is awake, alert and oriented x 3. He is able to follow commands and answer questions appropriately. There is no aphasia or dysarthria. The cranial nerves II-XII are grossly intact. The motor strength is grossly 5/5 bilaterally in the
upper and lower extremities. Sensations are grossly intact bilaterally. There is no limb ataxia seen.
Total Time Spent with Patient (in minutes): 40
[2025-04-03] MEDS: TYLENOL 650 MG PO (20:46)
[2025-04-03] MEDS: PROSCAR 5 MG PO (21:36)
[2025-04-03 22:40] LABS: Glucose - Point of Care 142 mg/dl (70-99)
[2025-04-03 22:56] VITALS: BP 100/62
[2025-04-04] VITALS (7 sets, daily range): BP systolic 103–122; BP diastolic 54–63; BMI 34.1
--- NOTE | 2025-04-04 00:46 | PTCARENOTE ---
Pt NSR with 1st HB. VSS NIH completed and score 0. pt c/o back/neck/ head pain. Per pt he had that pain for the past few weeks. Neurologist at bedside, orders STAT CT head and placed Heparin gtt on hold.
[2025-04-04] MEDS: AMPICILLIN 108 MG IV ×7 (00:54→23:17)
[2025-04-04 05:50] LABS: Hematocrit 29.8 % (39.0-52.0); Hemoglobin 9.3 g/dL (13.0-18.0); Mean Corp Hgb Conc. 31.2 g/dL (33.0-37.0); Mean Corpuscular Volume 88.2 fL (80.0-94.0); Platelet Count 284 10^3/uL (130-400); Red Cell Dist. Width 15.1 % (11.5-14.5)
[2025-04-04] MEDS: VANCOCIN 275 MG IV ×2 (06:01→17:01)
[2025-04-04] MEDS: TYLENOL 650 MG PO ×2 (06:10→20:21)
[2025-04-04 06:11] LABS: Blood Urea Nitrogen 13 mg/dl (9-20); Calcium 8.1 mg/dl (8.4-10.2); Carbon Dioxide 29 mmol/L (22-30); Chloride 99 mmol/L (98-107); Estimated Creatinine Clearance 95 ml/min; Glucose 102 mg/dl (70-99); Potassium 3.7 mmol/L (3.5-5.1); Sodium 136 mmol/L (135-145); eGFR > 60.00
[2025-04-04] MEDS: LASIX 40 MG IV (07:26)
[2025-04-04] MEDS: FARXIGA 10 MG PO (07:26)
[2025-04-04] MEDS: TOPROL XL 100 MG PO (07:31)
[2025-04-04] MEDS: CARDIZEM CD 180 MG PO (07:31)
[2025-04-04] MEDS: PACERONE 200 MG PO (07:31)
[2025-04-04] MEDS: CRESTOR 10 MG PO (07:31)
--- NOTE | 2025-04-04 08:10 | PHA.VAN.FU ---
Vancomycin Assessment / Plan
- Assessment
Renal Function: Stable
WBC's are: Stable
In the past 24 hrs, patient has been: Afebrile
Concomitant Antimicrobials: AMPICILLIN, CEFTRIAXONE
- Dosing Plan
Continue: 1250MG Q12H
- Monitoring Plan
Peak Level: 04/05 @2130
Trough Level: 04/06 @0530
- Follow Up
Pharmacy will continue to follow.
Vancomycin Follow UP
- -
Patient Age: 84
Patient Sex: Male
Vancomycin Day #: 2 (UNSURE OF LENGTH OF VANCO PATIENT CAME FROM [facility] ON IT)
Indication: Endocarditis
Requesting Provider: Dr. Bullard
Pertinent Antimicrobial Allergies:
nkda
Height / Weight:
Height 5 ft 9 in
Actual Weight 104.6 kg
IBW in k.7
- Vital Signs / Lab Results
Temp Pulse Resp BP Pulse Ox
98.8 F 74 15 122/63 95
04/04/25 07:19 04/04/25 07:30 04/04/25 07:19 04/04/25 07:21 04/04/25 07:19
Lab Results - Hematology
04/02/25 04/03/25 04/03/25
23:06 00:24 08:19
WBC 13.5 H 14.5 H 12.9 H
04/04/25
04:18
WBC 12.7 H
Lab Results - Chemistry
04/02/25 04/03/25 04/04/25
23:06 08:18 04:18
BUN 13 13 13
Creatinine 0.7 0.6 L 0.7
Estimated Creat Clear 95 111 95
Albumin 2.5 L
Microbiology Results
04/02/25 23:04 Blood Culture - Preliminary
Blood/Venous Positive culture in progress
Gram Stain - Preliminary
04/03/25 00:24 Blood Culture - Preliminary
Blood/Venous Positive culture in progress
Gram Stain - Preliminary
Therapeutic Drug Monitoring
Random Vancomycin 12.3 ug/ml 04/03/25 10:03
[2025-04-04 08:31] LABS: Glucose - Point of Care 166 mg/dl (70-99)
[2025-04-04] MEDS: NOVOLOG FLEXPEN-LOW RESISTANCE 1 UNITS SC ×3 (08:31→18:01)
--- NOTE | 2025-04-04 09:05 | W.PN.UPDATE ---
Update Note
Progress Note Update
Neurologically intact and answers questions appropriately this morning, aware that he had strokes yesterday. Still waiting on DONOVAN images to come over from [facility]. Discussed with nursing mushroom growing supervisor this morning, plan to get them
over [facility] today. There is concern that he has infected discitis that may be unresolved. Will have to contact Dr. Blackburn? Who manages this outpatient for him. His CTA did not reveal any significant aortic root abscess or any obvious left atrial
mass or endocardial irregularities. I did see some thickening and attenuation on his TAVR valve leaflets. Will have to see what the DONOVAN imaging shows. If it is truly infected, as long as the strokes do not convert to hemorrhagic, the only real
viable option I see here would be to have surgery to explant the valve and replace it. At that time we could explore his left atrium to rule out any endocardial lesions as well. I cannot give him a definitive plan until I see his imaging studies.
If we have trouble getting them, we will plan to repeat them.
--- NOTE | 2025-04-04 09:11 | W.PN.ID1 ---
Date of Service
Date of Service: April 04, 2025
Today's Communication
continue vancomycin, ampicillin, ceftriaxone
our cultures here have identified the isolate
requested MRI lumbar spine as well, eventual repeat MRI lumbar spine if records cannot be located or bacteremia persists
Assessment / Plan
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
L2/L3 discitis - suspected due to E Faecalis
- unable to obtain micro records overnight however our cultures here have become positive
- unclear if vancomycin was chosen for resistance or simply as part of the empiric regimen - continue pending our sensitivities
- continue vancomycin while clarifying the cultures - pharmacy to dose to prevent toxicity
- continue ampicillin 2 gm iv q4 hours, continue the ceftriaxone 2 gm IV q12
- blood cultures x2 here are in progress and have grown E faecalis
- repeat blood cultures x2
- follow up CT surgery recommendations - if patient is taken for surgery please send aerobic and anaerobic cultures
- brain MR - acute embolic disease with multiple small acute infarcts, subacue intraparenchymal hemorrage in the lateral right parietal lobe
- requested MRI lumbar spine as well, eventual repeat MRI lumbar spine if records cannot be located or bacteremia persists
- CT surgery considering explant of the valve
Lower extremity edema
- without evidence of infection
- compression
Chief Complaint
-: Other (endocarditis)
Subjective / Review of Systems
paper chart reviewed and no records have been delivered
I did not receive [facility] either
our blood cultures however have become positive for E faecalis as reported
no weakness in the lower extremities
Vital Signs / Physical Exam
Vital Signs
Vital Signs
Temp Pulse Resp BP Pulse Ox
98.8 F 74 15 122/63 95
04/04/25 07:19 04/04/25 07:30 04/04/25 07:19 04/04/25 07:21 04/04/25 07:19
Physical Exam
Constitutional: No Acute Distress
Cardiovascular: Regular Rate and S1/S2; Negative Murmur or Rub
Pulmonary: Clear and Symmetric; Negative Wheezes or Rales
Gastrointestinal: Soft, Non Tender, Non Distended and Normal Bowel Sounds
Musculoskeletal: Other (full strength in the lower extremities)
Skin: Warm and Dry; Negative Rash or Jaundice
Objective Data
Lab Data
Lab Results
04/04/25 04:18
04/04/25 04:18
APTT 62.2 Sec (23.4-35.0) H 04/03/25 17:09
Estimated Creat Clear 95 ml/min 04/04/25 04:18
Total Bilirubin 0.4 mg/dl (0.2-1.3) 04/03/25 08:18
AST 27 U/L (17-59) 04/03/25 08:18
ALT 34 U/L (0-50) 04/03/25 08:18
Alkaline Phosphatase 121 U/L (38-126) 04/03/25 08:18
Most recent labs reviewed.
Micro Results:
04/02/25 23:04 Blood Culture - Preliminary
Blood/Venous Enterococcus faecalis
Gram Stain - Preliminary
04/02/25 23:04 MRSA Screen - Final
Nose No Methicillin Resistant Staphylococcus aureus isolated.
04/03/25 00:24 Blood Culture - Preliminary
Blood/Venous Positive culture in progress
Gram Stain - Preliminary
--- NOTE | 2025-04-04 10:15 | W.PN.CARDCBS ---
Today's Communication / Plan
-
Continue supportive care as well as IV antibiotics
Await further imaging evaluation
Impression / Plan
-
PCP: Dr. Gordon Ortega
Cardiology: Dr. Aj
Impression:
Transferred from [facility] to [facility] for concern for endocarditis 04/02/2025
Admitted to [facility] with back pain 03/31/2025
Enterococcus faecalis bacteremia seen at [facility] 03/31/2025
Abnormal DONOVAN concerning for abscess in the ANDREW from the anterior mitral valve insertion 04/02/2025
s/p TAVR for severe 2022
Chronic back pain with outpatient MRI suggesting L3-L4 discitis 03/2025
s/p outpatient epidural injections for low back pain
Dysarthria and confusion 04/03/2025
Chronic HFpEF
cRBBB with first-degree AV delay
Paroxysmal A-fib
s/p PVI 01/26/2025
Chronic Eliquis OAC
Chronic amiodarone therapy
Hyperlipidemia
Testing at [facility] included:
- Outpatient MRI of his back was suggestive of L3-L4 discitis
- Echo on 04/01/25 revealed LVEF 60-65%, moderately dilated left atrium, mild mitral valve regurgitation, mildly elevated pulmonary artery systolic pressure. Aortic valve was not well-visualized, appeared to be bioprosthetic TAVR valve with only
trivial aortic insufficiency and elevated mean gradient of 26 mmHg
- DONOVAN on 04/02/25 revealed moderately dilated left atrium. There was 3 x 0.5 cm laminar shaped heterogenous echogenicity in the left atrium from anterior mitral valve insertion. This can be consistent with abscess. Less likely thrombus. No obvious
fistula was identified. Bioprosthetic aortic valve was identified. Visualization was limited due to acoustic shadow but left coronary leaflet was thickened with echogenicity. No significant AI was noted. . There was normal RV and LV function and
mild MR.
Plan:
Very complex case.
He has bacteremia/sepsis with Enterococcus faecalis.
There is concern for lumbar discitis which could be due to Enterococcus faecalis
There is also concern for the possibility of endocarditis with possible abscess due to Enterococcus faecalis as there is mention of both abnormalities surrounding the prior TAVR valve suggested on CTA as well as possibility of left atrial abscess
suggested on DONOVAN imaging done at [facility].
Case is further complicated by acute embolic CVAs which are felt to likely represent infective embolic events with high risk of hemorrhagic conversion.
We await further evaluation of his previous imaging studies
CT surgery has evaluated his CTA and finds no significant aortic root abscess or obvious left atrial mass or endocardial irregularities. There was some thickening and attenuation of his TAVR valve leaflets.
Awaiting DONOVAN images. DONOVAN images have once again been requested for review
If unable to obtain DONOVAN images by tomorrow, consider transesophageal echocardiogram here for further review
He does have right bundle branch block which is chronic but seems to have developed a longer first-degree AV delay
Could this be a sign of progressive aortic valve/annular disease/abscess? Certainly not definitive. Will continue to follow rhythm and ECGs.
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
High hemorrhagic conversion risk
Holding on any consideration for heparin at the moment
Of note, he is much brighter this morning with no neurologic deficits.
Infectious disease following and maintaining antibiotic therapy with vancomycin, ampicillin, ceftriaxone
Awaiting MRI images for further review, may need repeat lumbar MRI
History of persistent atrial fibrillation.
Maintaining sinus rhythm after PVI 01/26/2025 and maintaining amiodarone, continue amiodarone
Holding off on anticoagulation over concern for hemorrhagic conversion of likely infective embolic CVAs
Discussed with patient as well as his daughter who is at the bedside. All of their questions have been answered.
His primary radio division captain at [facility] is Dr. Rajinder aj
Total time spent today was 51 minutes in preparing to see the patient, seeing the patient and coordination of care. This included review of recent laboratory evaluations, cardiact testing, imaging studies, primary care rtecords, specialty
consultations, hospital records, as well as personally interviewing and examining the patient, which included discussion of their tests, review/ordering medications, and communicating with other healthcare professionals and also treatment planning
as well as counseling.
Total time does not include separately billed tests performed on this date of service.
Progress Note - Structural Engineering Drafting Officer
Subjective
Date of Service: April 04, 2025
He tells me that he feels more ' with it' and overall stronger this morning compared to yesterday. He feels he is thinking very clearly this morning.
Objective
Labs:
04/04/25 04:18
04/04/25 04:18
Labs
Hgb 9.3 g/dL (13.0-18.0) L 04/04/25 04:18
Hct 29.8 % (39.0-52.0) L 04/04/25 04:18
Plt Count 284 10^3/uL (130-400) 04/04/25 04:18
APTT 62.2 Sec (23.4-35.0) H 04/03/25 17:09
Sodium 136 mmol/L (135-145) 04/04/25 04:18
Potassium 3.7 mmol/L (3.5-5.1) 04/04/25 04:18
BUN 13 mg/dl (9-20) 04/04/25 04:18
Creatinine 0.7 mg/dL (0.7-1.3) 04/04/25 04:18
Glucose 102 mg/dl (70-99) H 04/04/25 04:18
Vital Signs and I&O:
Vital Signs
Temp Pulse Resp BP Pulse Ox
98.8 F 74 15 122/63 96
04/04/25 07:19 04/04/25 07:30 04/04/25 07:19 04/04/25 07:21 04/04/25 09:46
Vital Signs
Temp Pulse Resp BP Pulse Ox
98.8 F 74 15 122/63 96
04/04/25 07:19 04/04/25 07:30 04/04/25 07:19 04/04/25 07:21 04/04/25 09:46
Intake & Output
04/02/25 04/03/25 04/04/25 04/05/25
06:59 06:59 06:59 06:59
Intake Total 750 / 750 100 / 100
Output Total 350 / 350 1850 / 1850
Balance 400 / 400 -1750 / -1750
Physical Exam
Physical Exam
Well-appearing, no acute distress, laying in bed, smiling and conversive, appropriate
Regular rate and rhythm with normal S1 and S2, no S3 no S4 3 1/6 apical holosystolic murmur no rubs. PMI is normally placed
Lungs clear to auscultation bilaterally without wheezes rales or rhonchi
Extremities no clubbing or cyanosis, +1 edema, both calves wrapped.
[2025-04-04 12:38] LABS: Glucose - Point of Care 187 mg/dl (70-99)
--- NOTE | 2025-04-04 12:47 | W.PN.HOSP.TC ---
Today's Communication/Plan
-
IV heparin DC'd. Follow for any new neurological symptoms.
Continue with IV antibiotics and follow surveillance blood cultures.
Await DONOVAN images
Continue with IV diuresis
Assessment / Plan
Assessment / Plan
# Enterococcus faecalis bacteremia
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
-DONOVAN showed 3 x 0.5 cm laminar shaped heterogeneous echogenicity in the left atrium from anterior mitral valve insertion consistent with abscess
- Recheck blood cultures-pending
- Continue vancomycin/ceftriaxone /#
- ID following
- Cardiology consulted
- Cardiothoracic surgery following
#Transient speech disturbances secondary to acute embolic disease with multiple small acute ischemic infarcts in both cerebral hemisphere. 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 There is also small 7 mm subacute intraparenchymal hemorrhage in the
lateral right parietal lobe. IV heparin discontinued as high risk situation for hemorrhagic conversion. Appreciate neurology input. Await DONOVAN images and based on that further surgical recommendations from CT surgery.
# L2-L3 disc edema possible discitis
- Patient was evaluated by orthopedics at [facility] who considered aspiration of the disc but they thought endocarditis was more likely the source of patient's presentation
-no neurological symptoms
- continue tramadol
- Improving pain
# Severe aortic stenosis status post TAVR in 2022
# Left lower extremity lymphedema/less likely cellulitis
-Weeping from left lower extremity from edema
-Venous ultrasound was negative for DVT
- Already on vancomycin/cefepime
- Continue with Lasix
Chronic HFrEF-suspect a mild acute decompensation-patient now requiring oxygen and has bilateral crackles.
- Check a chest x-ray and BNP
- Continue Lasix 40 mg IV daily
- Continue Jardiance, metoprolol
Chronic atrial fibrillation status post cardioversion/ablation
- Continue amiodarone
- Hold Eliquis, hold IV heparin because of embolic strokes
#Worsening of chronic anemia
-Hemoglobin trend was 9.8 to 8.5 to 9.3
- Transfuse for hemoglobin under 8
- Patient denies any blood in the stool or black stool
Essential hypertension
Hyperlipidemia
- Continue statin
Type 2 diabetes
- Hold metformin
- Insulin sliding scale
- Continue Jardiance
Obesity
Prior alcohol use disorder
- No longer drinks significant alcohol
Obstructive sleep apnea
Gout
Spinal stenosis/chronic back
BPH
- Continue finasteride
Former alcohol use disorder
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
Discussed with daughter at bedside
Discussed with RN
Discussed case with cardiology yesterday
Total time spent on today's encounter was 52 minutes which included time spent in counseling the patient/family regarding diagnosis and treatment plan as listed above, goals of care, and symptom management. Case was discussed with nursing staff,
specialists, and care coordinators/case management. All labs and imaging personally reviewed by me. Remainder the time spent in detailed review of previous records, lab data, imaging, and other medical provider documentation.
Portions of this chart may have been created with voice recognition software. Occasional wrong word or 'sound alike' substitutions may have occurred due to the inherent limitations of voice recognition software.
Full code
DVT prophylaxis�heparin drip
Cardiac diet
Anticipated Discharge: > 48 hours
Subjective/Interval History
-
Date of Service: April 04, 2025
No further aphasia or speech difficulty.
Denies any headache, vision disturbance, weakness no sensory disturbances in the limbs.
Denies shortness of breath or chest pain. No nausea vomiting. Denies any fever chills.
Objective Data
-
Labs:
Laboratory Results
04/04/25
04:18
WBC 12.7 H
Hgb 9.3 L
Hct 29.8 L
Plt Count 284
Sodium 136
Potassium 3.7
Chloride 99
Carbon Dioxide 29
BUN 13
Creatinine 0.7
Glucose 102 H
Calcium 8.1 L
Vital Signs:
Vital Signs
Temp Pulse Resp BP Pulse Ox
98.2 F 69 15 122/63 98
04/04/25 12:14 04/04/25 12:14 04/04/25 12:14 04/04/25 07:21 04/04/25 12:14
I&O
04/03/25 04/04/25 04/05/25
06:59 06:59 06:59
Intake Total 750 / 750 100 / 100
Output Total 350 / 350 1850 / 1850
Balance 400 / 400 -1750 / -1750
Physical Exam
-
General: No Apparent Distress
Respiratory: Crackles (bibasal) and Non Labored Respirations; Negative Accessory Resp Muscle Use
Cardiac: Regular Rhythm and S1/S2; Negative Tachycardic
GI: Soft
Neuro: AO x 3 and No Motor Deficits; Negative Slurred Speech or Facial Droop
Psych: Calm; Negative Confused or Agitated
Data Reviewed
-
MRI: Report Reviewed by me (brain)
Labs: Labs Reviewed by me
--- NOTE | 2025-04-04 13:03 | W.PN.NEURO.1 ---
Today's Communication / Plan
-
The plan is to continue to hold heparin drip due to risk of hemorrhagic conversion of the acute embolic infarcts secondary to septic emboli in the setting of endocarditis. Continue intravenous antibiotics as per ID recommendations. Cardiothoracic
surgery has been consulted along with the ID. Neurology will follow.
Neuro Assessment/Plan
Assessment
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 Clinically he does not have any speech difficulty, facial droop or any focal weakness of arms and legs.
Plan
The plan is to continue to hold heparin drip due to risk of hemorrhagic conversion of the acute embolic infarcts seen on MRI brain, secondary to likely septic emboli in the setting of endocarditis. Continue intravenous antibiotics as per ID
recommendations. Cardiothoracic surgery has been consulted along with the ID.
Subjective/Objective
Subjective Data
Date of Service: April 04, 2025
The patient was seen and examined today. The patient says that he is doing very well today and he denies any complaints.
Neurologic Examination: Alert and oriented x 3, speech is clear, cranial nerves II-XII are grossly intact, the strength is grossly 5/5 bilaterally in the upper and lower extremities andthere is no limb ataxia seen.
Objective Data
Vital Signs
Temp Pulse Resp BP Pulse Ox
36.8 C 69 15 122/63 98
04/04/25 12:14 04/04/25 12:14 04/04/25 12:14 04/04/25 07:21 04/04/25 12:14
Lab Results
04/04/25 04:18
04/04/25 04:18
APTT 62.2 Sec (23.4-35.0) H 04/03/25 17:09
Sodium 136 mmol/L (135-145) 04/04/25 04:18
Potassium 3.7 mmol/L (3.5-5.1) 04/04/25 04:18
BUN 13 mg/dl (9-20) 04/04/25 04:18
Glucose 102 mg/dl (70-99) H 04/04/25 04:18
Calcium 8.1 mg/dl (8.4-10.2) L 04/04/25 04:18
Dgf-D-Wkuotzlqfmr Pept 6470 pg/ml 04/03/25 08:18
Patient Allergies
No Known Allergies Allergy (Verified 12/25/24 08:51)
Medications
-
Active Medications
Generic Name Dose Route Start Last Admin
Trade Name Freq PRN Reason Stop Dose Admin
Acetaminophen 650 mg 04/02/25 23:44 04/04/25 06:10
Acetaminophen 325 Mg Tablet PO 04/30/25 23:43 650 mg
Q4HPRN PRN Administration
mild pain
Amiodarone HCl 200 mg 04/03/25 08:00 04/04/25 07:31
Amiodarone 200 Mg Tablet PO 05/01/25 07:59 200 mg
DAILY LUDY Administration
Ceftriaxone Sodium 2,000 mg 04/03/25 00:00 04/04/25 00:00
Ceftriaxone 2,000 Mg/20 Ml Vial IV 2,000 mg
Q12H LUDY Administration
Dapagliflozin 10 mg 04/03/25 08:00 04/04/25 07:26
Dapagliflozin (Farxiga) 10 Mg Tablet PO 05/01/25 07:59 10 mg
DAILY LUDY Administration
Dextrose 12.5 grams 04/02/25 23:44
Dextrose 50% (0.5 Grams/Ml) 50 Ml Syringe IV 04/30/25 23:43
[id number] PRN
hypoglycemia
Protocol
Diltiazem HCl 180 mg 04/03/25 08:00 04/04/25 07:31
Diltiazem 180 Mg Extended Release (24 H) Capsule PO 05/01/25 07:59 180 mg
DAILY LUDY Administration
Finasteride 5 mg 04/03/25 22:00 04/03/25 21:36
Finasteride 5 Mg Tablet PO 05/01/25 21:59 5 mg
HS LUDY Administration
Furosemide 40 mg 04/03/25 08:00 04/04/25 07:26
Furosemide 40 Mg (10 Mg/Ml) 4 Ml Vial IV 05/01/25 07:59 40 mg
DAILY LUDY Administration
Glucagon 1 mg 04/02/25 23:44
Glucagon 1 Mg Vial IM 04/30/25 23:43
PRN PRN
hypoglycemia
Protocol
Vancomycin HCl 1,250 mg/ 275 mls @ 183.33 mls/hr 04/03/25 18:00 04/04/25 06:01
Sodium Chloride IV 275 mls
Q12H LUDY Administration
Ampicillin Sodium 2,000 mg/ 108 mls @ 108 mls/hr 04/03/25 12:00 04/04/25 11:55
Sodium Chloride IV 108 mls
Q4H LUDY Administration
Insulin Aspart 0 units 04/03/25 07:30 04/04/25 12:41
Insulin Aspart Low Resistance 300 Units/3 Ml Pen.Injctr SC 05/01/25 07:29 1 units
AC LUDY Administration
Protocol
Lidocaine 1 patch 04/02/25 22:00 04/03/25 21:37
Lidocaine 4% Topical Patch TOPICAL 04/30/25 21:59 1 patch
HS LUDY Administration
Protocol
Metoprolol Succinate 100 mg 04/03/25 08:00 04/04/25 07:31
Metoprolol 100 Mg Extended Release Tablet PO 05/01/25 07:59 100 mg
DAILY LUDY Administration
Rosuvastatin Calcium 10 mg 04/03/25 08:00 04/04/25 07:31
Rosuvastatin (Crestor) 10 Mg Tablet PO 05/01/25 07:59 10 mg
DAILY LUDY Administration
Sodium Chloride 0 flush 04/03/25 01:00
Sodium Chloride 0.9% (Flush) Syringe IV 05/01/25 00:59
PER PROTOCOL LUDY
Sterile Water 20 ml 04/03/25 00:00 04/04/25 00:00
Sterile Water For Injection 20 Ml Vial IV 05/01/25 00:00 20 ml
Q12H LUDY Administration
Tramadol HCl 50 mg 04/02/25 23:44 04/03/25 21:36
Tramadol Hcl 50 Mg Tablet PO 04/30/25 23:43 50 mg
Q6HPRN PRN Administration
mod sev pain
Home Medications
�Medication �Instructions �Recorded
finasteride 5 mg tablet 5 mg PO HS 06/05/22
amiodarone 200 mg tablet 200 mg PO DAILY 12/25/24
apixaban 5 mg tablet (Eliquis) 5 mg PO BID 12/25/24
cholecalciferol (vitamin D3) 125 125 mcg PO DAILY 12/25/24
mcg (5,000 unit) tablet (Vitamin
D3)
diltiazem HCl 180 mg capsule,24 180 mg PO DAILY 12/25/24
hr,extended release
empagliflozin 25 mg tablet 25 mg PO DAILY 12/25/24
(Jardiance)
metoprolol succinate 100 mg 100 mg PO DAILY 12/25/24
tablet,extended release 24 hr
rosuvastatin 10 mg tablet 10 mg PO DAILY 12/25/24
furosemide 20 mg tablet 60 mg PO DAILY 01/26/25
metformin 500 mg tablet 1,000 mg PO BID Diabetes 01/26/25
metoprolol succinate 50 mg 50 mg PO QPM 01/26/25
tablet,extended release 24 hr
Vital Signs and Labs
-
Vital Signs and Labs:
Vital Signs
Temp Pulse Resp BP Pulse Ox
36.8 C 69 15 122/63 98
04/04/25 12:14 04/04/25 12:14 04/04/25 12:14 04/04/25 07:21 04/04/25 12:14
Lab Results
04/04/25 04:18
04/04/25 04:18
APTT 62.2 Sec (23.4-35.0) H 04/03/25 17:09
Sodium 136 mmol/L (135-145) 04/04/25 04:18
Potassium 3.7 mmol/L (3.5-5.1) 04/04/25 04:18
BUN 13 mg/dl (9-20) 04/04/25 04:18
Glucose 102 mg/dl (70-99) H 04/04/25 04:18
Calcium 8.1 mg/dl (8.4-10.2) L 04/04/25 04:18
Spu-K-Ifgzwgithjb Pept 6470 pg/ml 04/03/25 08:18
[2025-04-04] MEDS: ROCEPHIN 2000 MG IV ×3 (13:20→23:17)
[2025-04-04] MEDS: STERILE WATER FOR INJECTION 20 ML IV ×3 (13:20→23:17)
[2025-04-04 17:45] LABS: Glucose - Point of Care 150 mg/dl (70-99)
--- NOTE | 2025-04-04 18:00 | PTCARENOTE ---
Pt received this am alert and oriented. Neuro status WNL. Assisted oob to the chair for all meals and tolerated well. OOB to the BR with 1 assist and the walker, gait steady. No c/o of any back or neck pain requiring pain medication. Room air sat
97%. Remains afebrile.
[2025-04-04] MEDS: ULTRAM 50 MG PO (20:21)
[2025-04-04] MEDS: LIDOCAINE 4% PATCH 1 PATCH TOPICAL (21:35)
[2025-04-04] MEDS: PROSCAR 5 MG PO (21:35)
--- NOTE | 2025-04-04 21:52 | PTCARENOTE ---
Patient received at change of shift out of bed to the chair. NIH zero. Neurological check WDL. The patient denies chest pain or pressure but endorses a mild headache, bilateral shoulder pain, and bilateral low back/hip pain, see MAR for prn pain
medication administration. Sinus rhythm with first degree AVB and BBB on telemetry. Oxygen saturation 95% on room air. Plan of care discussed. Call funes within reach. Care ongoing.
[2025-04-04 23:01] LABS: Glucose - Point of Care 182 mg/dl (70-99)
[2025-04-05] VITALS (7 sets, daily range): BP systolic 103–126; BP diastolic 61–86; BMI 34.4
[2025-04-05] MEDS: AMPICILLIN 108 MG IV ×6 (03:45→23:48)
[2025-04-05 04:58] LABS: Hematocrit 27.2 % (39.0-52.0); Hemoglobin 8.6 g/dL (13.0-18.0); Mean Corp Hgb Conc. 31.6 g/dL (33.0-37.0); Mean Corpuscular Volume 85.5 fL (80.0-94.0); Platelet Count 282 10^3/uL (130-400); Red Cell Dist. Width 15.0 % (11.5-14.5)
[2025-04-05 05:05] LABS: Blood Urea Nitrogen 15 mg/dl (9-20); Calcium 7.8 mg/dl (8.4-10.2); Carbon Dioxide 29 mmol/L (22-30); Chloride 102 mmol/L (98-107); Estimated Creatinine Clearance 112 ml/min; Glucose 140 mg/dl (70-99); Potassium 3.3 mmol/L (3.5-5.1); Sodium 136 mmol/L (135-145); eGFR > 60.00
[2025-04-05] MEDS: VANCOCIN 275 MG IV (05:35)
[2025-04-05] MEDS: KCL 20 MEQ PO (05:36)
--- NOTE | 2025-04-05 07:46 | W.PN.NEURO.1 ---
Today's Communication / Plan
-
Would avoid routine use of apixaban at this time due to risk of hemorrhagic conversion of what are presumed to be septic emboli in bilateral hemispheres
Would provide aspirin 81 mg while patient is being treated for presumed septic emboli
Appreciate infectious disease colleague's insight, continue antibiotics as per their service
Would return to the use of apixaban after discontinuance of antibiotics
Okay to initiate valvular procedure from neurological perspective based on small sizes of lesions and urgent need for replacement.
Check lipid profile
Check carotid ultrasound to ensure no significant stenosis present
Neuro Assessment/Plan
Assessment
Patient with newly discovered endocarditis and episode of speech arrest. Subsequently was diagnosed with subacute ischemic/hemorrhagic stroke involving the right parietal lobe, and multiple emboli in bilateral cerebral hemispheres of small size by
MRI imaging of the brain
Plan
Would avoid routine use of apixaban at this time due to risk of hemorrhagic conversion of what are presumed to be septic emboli in bilateral hemispheres
Would provide aspirin 81 mg while patient is being treated for presumed septic emboli
Appreciate infectious disease colleague's insight, continue antibiotics as per their service
Would return to the use of apixaban after discontinuance of antibiotics
Okay to initiate valvular procedure from neurological perspective based on small sizes of lesions and urgent need for replacement.
Check lipid profile
Check carotid ultrasound to ensure no significant stenosis present
Will follow peripherally
Subjective/Objective
Subjective Data
Date of Service: April 05, 2025
Objective Data
Vital Signs
Temp Pulse Resp BP Pulse Ox
37.0 C 71 18 119/71 95
04/05/25 03:36 04/05/25 06:00 04/05/25 03:36 04/05/25 03:37 04/05/25 03:36
Lab Results
04/05/25 03:43
04/05/25 03:43
APTT 62.2 Sec (23.4-35.0) H 04/03/25 17:09
Sodium 136 mmol/L (135-145) 04/05/25 03:43
Potassium 3.3 mmol/L (3.5-5.1) L 04/05/25 03:43
BUN 15 mg/dl (9-20) 04/05/25 03:43
Glucose 140 mg/dl (70-99) H 04/05/25 03:43
Calcium 7.8 mg/dl (8.4-10.2) L 04/05/25 03:43
Jkg-M-Feepwffwppd Pept 6470 pg/ml 04/03/25 08:18
Patient Allergies
No Known Allergies Allergy (Verified 12/25/24 08:51)
Data Reviewed
-
MRI Head: Report Reviewed and Image Reviewed
Carotid Ultrasound: Ordered
Labs: Report Reviewed
Lipid Profile: Ordered
Reviewed with: Physician, Nurse and Nurse Practioner
Old Records: Summarized
Past History
Past History
ED Past Medical History: Arrthythmia (Atrial fibrillation), HTN, Hypercholesterolemia, NIDDM and Other (Prior aortic stenosis, obesity, alcohol use disorder, ARNIE, gout, spinal stenosis, chronic low back pain, chronic right lower extremity edema)
ED Past Surgical History: Cardiac (TAVR 2022)
Social History
Tobacco: Non-smoker
Alcohol: Former
Family History
Family History: Other (Reviewed and noncontributory)
Medications
-
Medications:
Generic Name Dose Route Start Last Admin
Trade Name Freq PRN Reason Stop Dose Admin
Acetaminophen 650 mg 04/02/25 23:44 04/04/25 20:21
Acetaminophen 325 Mg Tablet PO 04/30/25 23:43 650 mg
Q4HPRN PRN Administration
mild pain
Amiodarone HCl 200 mg 04/03/25 08:00 04/04/25 07:31
Amiodarone 200 Mg Tablet PO 05/01/25 07:59 200 mg
DAILY LUDY Administration
Aspirin 81 mg 04/06/25 08:00
Aspirin 81 Mg (Enteric Coated) Tablet PO 05/04/25 07:59
DAILY LUDY
Ceftriaxone Sodium 2,000 mg 04/03/25 00:00 04/04/25 23:17
Ceftriaxone 2,000 Mg/20 Ml Vial IV 2,000 mg
Q12H LUDY Administration
Dapagliflozin 10 mg 04/03/25 08:00 04/04/25 07:26
Dapagliflozin (Farxiga) 10 Mg Tablet PO 05/01/25 07:59 10 mg
DAILY LUDY Administration
Dextrose 12.5 grams 04/02/25 23:44
Dextrose 50% (0.5 Grams/Ml) 50 Ml Syringe IV 04/30/25 23:43
[id number] PRN
hypoglycemia
Protocol
Diltiazem HCl 180 mg 04/03/25 08:00 04/04/25 07:31
Diltiazem 180 Mg Extended Release (24 H) Capsule PO 05/01/25 07:59 180 mg
DAILY LUDY Administration
Finasteride 5 mg 04/03/25 22:00 04/04/25 21:35
Finasteride 5 Mg Tablet PO 05/01/25 21:59 5 mg
HS LUDY Administration
Furosemide 40 mg 04/03/25 08:00 04/04/25 07:26
Furosemide 40 Mg (10 Mg/Ml) 4 Ml Vial IV 05/01/25 07:59 40 mg
DAILY LUDY Administration
Glucagon 1 mg 04/02/25 23:44
Glucagon 1 Mg Vial IM 04/30/25 23:43
PRN PRN
hypoglycemia
Protocol
Vancomycin HCl 1,250 mg/ 275 mls @ 183.33 mls/hr 04/03/25 18:00 04/05/25 05:35
Sodium Chloride IV 275 mls
Q12H LUDY Administration
Ampicillin Sodium 2,000 mg/ 108 mls @ 108 mls/hr 04/03/25 12:00 04/05/25 03:45
Sodium Chloride IV 108 mls
Q4H LUDY Administration
Insulin Aspart 0 units 04/03/25 07:30 04/04/25 18:01
Insulin Aspart Low Resistance 300 Units/3 Ml Pen.Injctr SC 05/01/25 07:29 1 units
AC LUDY Administration
Protocol
Lidocaine 1 patch 04/02/25 22:00 04/04/25 21:35
Lidocaine 4% Topical Patch TOPICAL 04/30/25 21:59 1 patch
HS LUDY Administration
Protocol
Metoprolol Succinate 100 mg 04/03/25 08:00 04/04/25 07:31
Metoprolol 100 Mg Extended Release Tablet PO 05/01/25 07:59 100 mg
DAILY LUDY Administration
Rosuvastatin Calcium 10 mg 04/03/25 08:00 04/04/25 07:31
Rosuvastatin (Crestor) 10 Mg Tablet PO 05/01/25 07:59 10 mg
DAILY LUDY Administration
Sodium Chloride 0 flush 04/03/25 01:00
Sodium Chloride 0.9% (Flush) Syringe IV 05/01/25 00:59
PER PROTOCOL LUDY
Sterile Water 20 ml 04/03/25 00:00 04/04/25 23:17
Sterile Water For Injection 20 Ml Vial IV 05/01/25 00:00 20 ml
Q12H LUDY Administration
Tramadol HCl 50 mg 04/02/25 23:44 04/04/25 20:21
Tramadol Hcl 50 Mg Tablet PO 04/30/25 23:43 50 mg
Q6HPRN PRN Administration
mod sev pain
--- NOTE | 2025-04-05 08:22 | W.PN.HOSP.TC ---
Addendum entered and electronically signed by Kevin Estrada MD 04/05/25 17:32:
I discussed with neurology and cardiothoracic surgery, and they are both in agreement that Lovenox subq for DVT prophylaxis dose is safe to start, in this patient.
Original Note:
Today's Communication/Plan
-
See plan
Assessment / Plan
Assessment / Plan
Physical Exam
General: No Apparent Distress
Respiratory: Clear to Auscultation Bilaterally
Cardiac: Regular Rhythm and S1/S2
GI: Soft. Nontender. Positive bowel sounds.
Neuro: AO x 3 and No Motor Deficits
Psych: Calm
Assessment/Plan
# Enterococcus faecalis bacteremia
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
# L2/L3 discitis - suspected due to E Faecalis
# Probable Septic emboli - Acute embolic infarctions within the brain
-DONOVAN showed 3 x 0.5 cm laminar shaped heterogeneous echogenicity in the left atrium from anterior mitral valve insertion consistent with abscess
- Repeat blood cultures-pending
- Vancomycin stopped.
- Continue Ampicillin and Ceftriaxone.
- ID following
- MRI Thoracic Spine, awaiting Lumbar Spine MRI results from [facility]
- Cardiology consulted
- Cardiothoracic surgery following -- they are considering explant of the valve, they have the DONOVAN images; possibly for the OR on 04/07/25 -- okay from neurology standpoint to proceed with surgery
- Heparin Drip was previously stopped due to acute embolic infarcts in the brain -- also of course avoid routine use of apixaban at this time due to risk of hemorrhagic conversion of what are presumed to be septic emboli in bilateral hemispheres;
return to the
use of Apixaban after discontinuance of antibiotics
- Start aspirin 81 mg while patient is being treated for presumed septic emboli
- Follow-up lipid profile
- Check carotid ultrasound to ensure no significant stenosis present
- Per MYRIAM Salas, ortho consult was placed to comment on L2/L3 edema/discitis as part of pre-operative work-up for TAVR explant/AVR (Prior comments in notes say [facility] orthopedics did not want aspiration and wanted to have
comment from the orthopedic team here)
#Transient speech disturbances secondary to acute embolic disease with multiple small acute ischemic infarcts in both cerebral hemisphere. 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 There is also small 7 mm subacute intraparenchymal hemorrhage in the
lateral right parietal lobe. IV heparin discontinued as high risk situation for hemorrhagic conversion. Continue Aspirin. Appreciate neurology input.
# L2-L3 disc edema possible discitis
- Patient was evaluated by orthopedics at [facility] who considered aspiration of the disc but they thought endocarditis was more likely the source of patient's presentation
- Ortho consulted here, appreciate their evaluation
-no neurological symptoms
- continue tramadol
- Improving pain
# Severe aortic stenosis status post TAVR in 2022
# Left lower extremity lymphedema/less likely cellulitis
-Weeping from left lower extremity from edema
-Venous ultrasound was negative for DVT
- Continue with IV Lasix
Chronic HFrEF-suspect a mild acute decompensation-patient now requiring oxygen and has bilateral crackles.
- proBNP high at 6470
- Continue Lasix 40 mg IV daily
- Continue SGLT2i and metoprolol
Chronic atrial fibrillation status post cardioversion/ablation
- Continue amiodarone
- Hold Eliquis, hold IV heparin because of embolic strokes
Worsening of chronic anemia
- Monitor hemoglobin trend
- Transfuse for hemoglobin under 8
- Patient denies any blood in the stool or black stool
Essential hypertension
Hyperlipidemia
- Continue statin
Type 2 diabetes
- Hold metformin
- Insulin sliding scale
- Continue SGLT2i
Obesity
Prior alcohol use disorder
- No longer drinks significant alcohol
Obstructive sleep apnea
Gout
Spinal stenosis/chronic back
BPH
- Continue finasteride
Former alcohol use disorder
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
Discussed with RN
Full code
DVT prophylaxis�Lovenox. Check ultrasound of legs given swelling to make sure no DVT, and if no DVT, then will start SCDs
Cardiac diet
Anticipated Discharge: > 48 hours
Subjective/Interval History
-
Date of Service: April 05, 2025
Patient was seen and examined. He denied any new symptoms or complaints.
Objective Data
-
Labs:
Laboratory Results
04/05/25
03:43
WBC 12.1 H
Hgb 8.6 L
Hct 27.2 L
Plt Count 282
Sodium 136
Potassium 3.3 L
Chloride 102
Carbon Dioxide 29
BUN 15
Creatinine 0.6 L
Glucose 140 H
Calcium 7.8 L
Vital Signs:
Vital Signs
Temp Pulse Resp BP Pulse Ox
98.6 F 71 18 119/71 95
04/05/25 03:36 04/05/25 06:00 04/05/25 03:36 04/05/25 03:37 04/05/25 03:36
I&O
04/04/25 04/05/25 04/06/25
06:59 06:59 06:59
Intake Total 100 / 100 824 / 824
Output Total 1850 / 1850 1125 / 1125
Balance -1750 / -1750 -301 / -301
[2025-04-05 08:23] LABS: Glucose - Point of Care 175 mg/dl (70-99)
[2025-04-05] MEDS: CRESTOR 10 MG PO (08:30)
[2025-04-05] MEDS: CARDIZEM CD 180 MG PO (08:30)
[2025-04-05] MEDS: NOVOLOG FLEXPEN-LOW RESISTANCE 1 UNITS SC ×3 (08:31→18:01)
[2025-04-05] MEDS: PACERONE 200 MG PO (08:31)
[2025-04-05] MEDS: TOPROL XL 100 MG PO (08:31)
[2025-04-05] MEDS: ASPIR LOW (ENTERIC COATED) 81 MG PO (08:31)
[2025-04-05] MEDS: FARXIGA 10 MG PO (08:31)
[2025-04-05] MEDS: LASIX 40 MG IV (08:31)
[2025-04-05 08:46] LABS: HDL Cholesterol 18 mg/dl; LDL Cholesterol, Calculated 73 mg/dl; Very Low Density Lipoprotein 23 mg/dl (0-30)
--- NOTE | 2025-04-05 08:59 | W.PN.ID1 ---
Addendum entered and electronically signed by Tameka Bullard MD 04/05/25 13:02:
isolate at HNL was amp sensitive
Original Note:
Date of Service
Date of Service: April 05, 2025
Today's Communication
awaiting MRI lumbar spine from , did receive the labs from them
stop vancomycin
continue ampicillin and ceftriaxone
thoracic spine MRI
Assessment / Plan
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
L2/L3 discitis - suspected due to E Faecalis
Probable Septic emboli - Acute embolic infarctions within the brain
[facility] - E faecalis was identified by PCR, no sensitivities were available; MRI lumbar spin still pending and rerequested
- stop vancomycin
- continue ampicillin 2 gm iv q4 hours, continue the ceftriaxone 2 gm IV q12
- blood cultures x2 here are in progress and have grown E faecalis - pending sensitivities
- repeat blood cultures x2 are in progress, no growth to date
- follow up CT surgery recommendations - if patient is taken for surgery please send aerobic and anaerobic cultures
- brain MR - acute embolic disease with multiple small acute infarcts, subacute intraparenchymal hemorrhage in the lateral right parietal lobe
- complaining of significant pain over the thoracic spine as well - MRI of this region to assess for other areas of OM/discitis
- awaiting lumbar spine report from [facility]
- CT surgery considering explant of the valve, they have the DONOVAN images; possibly for the OR saturday
Lower extremity edema
- without evidence of infection
- compression
Chief Complaint
-: Other (endocarditis)
Subjective / Review of Systems
afebrile
reports pain in the thoracic spine and lumbar spine is improving and not constant
in good spirits
Vital Signs / Physical Exam
Vital Signs
Vital Signs
Temp Pulse Resp BP Pulse Ox
98.2 F 77 18 126/70 97
04/05/25 08:25 04/05/25 08:30 04/05/25 08:25 04/05/25 08:30 04/05/25 08:25
Physical Exam
Constitutional: No Acute Distress
Cardiovascular: Regular Rate, S1/S2 and Murmur; Negative Rub
Pulmonary: Clear and Symmetric; Negative Wheezes or Rales
Gastrointestinal: Soft, Non Tender, Non Distended and Normal Bowel Sounds
Musculoskeletal: Spinal Tenderness (thoracic spine and low lumbar spine)
Skin: Warm and Dry; Negative Rash or Jaundice
Objective Data
Lab Data
Lab Results
04/05/25 03:43
04/05/25 03:43
APTT 62.2 Sec (23.4-35.0) H 04/03/25 17:09
Estimated Creat Clear 112 ml/min 04/05/25 03:43
Total Bilirubin 0.4 mg/dl (0.2-1.3) 04/03/25 08:18
AST 27 U/L (17-59) 04/03/25 08:18
ALT 34 U/L (0-50) 04/03/25 08:18
Alkaline Phosphatase 121 U/L (38-126) 04/03/25 08:18
Most recent labs reviewed.
Micro Results:
04/04/25 11:39 Blood Culture - Pending
Blood/Venous
04/03/25 00:24 Blood Culture - Preliminary
Blood/Venous Positive culture in progress
Gram Stain - Preliminary
04/04/25 10:00 Blood Culture - Pending
Blood/Venous
04/02/25 23:04 Blood Culture - Preliminary
Blood/Venous Enterococcus faecalis
Gram Stain - Preliminary
04/02/25 23:04 MRSA Screen - Final
Nose No Methicillin Resistant Staphylococcus aureus isolated.
--- NOTE | 2025-04-05 11:13 | CM ---
Chart reviewed. Patient is independent of ADLS, lives with his in a [address], [facility], ambulates with a RW and SPC. Patient being worked up for CT Surgery. CM to follow for timing. Plan is for the patient to return home with CT Transitional RN
vs Rehab based on functional assessment. CM to follow
--- NOTE | 2025-04-05 11:30 | W.PN.CARDCBS ---
Addendum entered and electronically signed by Roque David MD 04/05/25 12:49:
I saw and examined the patient.
The TRAVEL PHYSICAL THERAPIST or PA's note was reviewed and I agree with the note.
Comment: General: Well developed, well nourished in NAD.
Neck: Supple, no JVD, HJR, carotids +2 B/L, no bruits bilaterally.
Heart: Non displaced PMI, RRR, 2/6 basal systolic murmur, No S3, S4, no rubs.
Lungs: Clear to auscultation bilaterally, no wheeze, rhonchi, rubs bilaterally,
normal expiratory phase.
Extremities: No clubbing, cyanosis or edema bilaterally.
Neuro: Grossly nonfocal, awake, alert and oriented x3.
He appears stable from cardiology viewpoint. Await CT surgery input regarding timing of possible surgery. CT surgery has obtained images from DONOVAN and will review. Discussed with CT surgery and patient in detail. MRI of the spine is pending as
well. Anticoagulation on hold given possibility of hemorrhagic transformation of brain lesions
Original Note:
Today's Communication / Plan
-
MRI spine pending
CT surgery team has obtained the [facility] images
Impression / Plan
-
PCP: Dr. Gordon Ortega
Cardiology: Dr. Patel
EP: Dr. Duran
Impression:
Transferred from [facility] to [facility] for concern for endocarditis 04/02/2025
Admitted to [facility] with back pain 03/31/2025
Enterococcus faecalis bacteremia seen at [facility] 03/31/2025
Abnormal DONOVAN concerning for abscess in the LA from the anterior mitral valve insertion 04/02/2025
s/p TAVR for severe 2022
Chronic back pain with outpatient MRI suggesting L3-L4 discitis 03/2025
s/p outpatient epidural injections for low back pain
Dysarthria and confusion 04/03/2025
Chronic HFpEF
cRBBB with first-degree AV delay
Paroxysmal A-fib
s/p PVI 01/26/2025
Chronic Eliquis OAC
Chronic amiodarone therapy
Hyperlipidemia
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
Testing at [facility] included:
-Outpatient MRI of his back was suggestive of L3-L4 discitis
-Echo on 04/01/25 revealed LVEF 60-65%, moderately dilated left atrium, mild mitral valve regurgitation, mildly elevated pulmonary artery systolic pressure. Aortic valve was not well-visualized, appeared to be bioprosthetic TAVR valve with only
trivial aortic insufficiency and elevated mean gradient of 26 mmHg
-DONOVAN on 04/02/25 revealed moderately dilated left atrium. There was 3 x 0.5 cm laminar shaped heterogenous echogenicity in the left atrium from anterior mitral valve insertion. This can be consistent with abscess. Less likely thrombus. No obvious
fistula was identified. Bioprosthetic aortic valve was identified. Visualization was limited due to acoustic shadow but left coronary leaflet was thickened with echogenicity. No significant AI was noted. . There was normal RV and LV function and
mild MR.
Plan:
-Patient with chronic back pain and receives epidural injections as an outpatient, then had an outpatient MRI for increasing back pain that suggested L3-L4 discitis 03/2025. Patient then admitted to [facility] with back pain 03/31/2025 and blood cultures
were positive for Enterococcus faecalis and DONOVAN suggested possible TAVR valve leaflet thickening, but CTA did not show aortic root abscess or obvious LA mass. Patient was transferred to [facility] 04/02/[address] surgery evaluation
-Case reviewed with CT surgery team on 04/05/2025 and they have obtained imaging from [facility] and are reviewing.
-ID note reviewed by me on 04/05/2025 and vancomycin has been stopped, the patient will continue with ampicillin and ceftriaxone
-Patient with dysarthria on 04/03/[address] of the head followed by MRI of the brain suggesting infective embolic events that are at high risk for hemorrhagic conversion. Neurology is now following as well and recommend that we continue to
hold Eliquis, the patient can receive aspirin 81 mg daily.
-MRI of the spine is pending for 04/05/2025, outpatient MRI 03/2025 suggested L3-L4 discitis according to records from [facility]
-ECG and telemetry reviewed by me on 04/05/2025, patient has SR with first-degree AV block and chronic RBBB. First-degree AV block appears longer than it did at the time of PVI 01/26/2025. Will continue to follow on telemetry and assess for any
concerning changes that may indicate progressive aortic valve/annular disease or abscess
-Patient with known paroxysmal A-fib, he had a successful PVI 01/26/2025 and remains in SR on my review of telemetry 04/05/2025.
-Outpatient dose of amiodarone 200 mg daily has been continued
-Outpatient dose of Toprol-XL 100 mg daily has been continued
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
Subjective
Date of Service: April 05, 2025
Feels much better, he feels oriented, no pain
Objective
Labs:
04/05/25 03:43
04/05/25 03:43
Labs
Hgb 8.6 g/dL (13.0-18.0) L 04/05/25 03:43
Hct 27.2 % (39.0-52.0) L 04/05/25 03:43
Plt Count 282 10^3/uL (130-400) 04/05/25 03:43
APTT 62.2 Sec (23.4-35.0) H 04/03/25 17:09
Sodium 136 mmol/L (135-145) 04/05/25 03:43
Potassium 3.3 mmol/L (3.5-5.1) L 04/05/25 03:43
BUN 15 mg/dl (9-20) 04/05/25 03:43
Creatinine 0.6 mg/dL (0.7-1.3) L 04/05/25 03:43
Glucose 140 mg/dl (70-99) H 04/05/25 03:43
Vital Signs and I&O:
Vital Signs
Temp Pulse Resp BP Pulse Ox
98.2 F 77 18 126/70 97
04/05/25 08:25 04/05/25 08:30 04/05/25 08:25 04/05/25 08:30 04/05/25 08:25
Vital Signs
Temp Pulse Resp BP Pulse Ox
98.2 F 77 18 126/70 97
04/05/25 08:25 04/05/25 08:30 04/05/25 08:25 04/05/25 08:30 04/05/25 08:25
Intake & Output
04/03/25 04/04/25 04/05/25 04/06/25
06:59 06:59 06:59 06:59
Intake Total 750 / 750 100 / 100 824 / 824
Output Total 350 / 350 1850 / 1850 1125 / 1125 450 / 450
Balance 400 / 400 -1750 / -1750 -301 / -301 -450 / -450
Physical Exam
Physical Exam
GEN: AAO x 3
HEENT: EOMI, MMM
LUNGS: RA. No wheeze
CV: SR on telemetry.
--- NOTE | 2025-04-05 12:00 | PTCARENOTE ---
Assumed care of pt from retail shift manager RN. AAOx3. NIHSS 0. Neuro checks WDL. NSR with first degree AVB and BBB on tele, HRs 60s-80s. VSS. +3 B/L LE edema noted. Compression therapy with KEYLA wraps. Assessment documented. Pt OOB to chair, call funes in
reach.
[2025-04-05] MEDS: ULTRAM 50 MG PO ×2 (13:05→19:44)
[2025-04-05] MEDS: STERILE WATER FOR INJECTION 20 ML IV ×2 (13:06→23:48)
[2025-04-05] MEDS: ROCEPHIN 2000 MG IV ×2 (13:06→23:48)
[2025-04-05 13:26] LABS: Glucose - Point of Care 158 mg/dl (70-99)
--- NOTE | 2025-04-05 13:49 | W.PN.UPDATE ---
Update Note
Progress Note Update
Asked to return to the patient's room to update his and daughter who are sitting bedside. We discussed hospitalization thus far and ongoing evaluation for possible surgery. We used diagrams to explain what imaging has shown thus far and
discussed what would be involved with TAVR explant and AVR if that is ultimately the plan. We reviewed MRI imaging and neurology recommendations. We reviewed MRI of the spine from today and ID recommendations. We talked about the possibility of
long-term or even lifelong suppressive antibiotic therapy. Coordinated with case management who will also come by to talk to the family. Diet order entered by me. About 15 minutes in [id number] update time.
--- NOTE | 2025-04-05 15:05 | CM ---
Reviewed preoperative and postoperative instructions and restrictions, along with showering guidelines with the patient, and daughter. Patient is agreeable to a home visit by CT Transitional RN. Patient is independent of ADLS, lives in a
split level house, patient with back pain using a SPC and RW, 3 JUAN J. Patient and family were inquiring about rehab. Patient will need functional assessment to determine discharge needs. Plan is for the patient to return home with CT Transitional
RN vs Rehab. CM to follow
[2025-04-05 17:43] LABS: Glucose - Point of Care 171 mg/dl (70-99)
[2025-04-05] MEDS: LOVENOX 40 MG SC (18:01)
[2025-04-05] MEDS: LIDOCAINE 4% PATCH 1 PATCH TOPICAL (21:30)
[2025-04-05] MEDS: KCL 40 MEQ PO (21:30)
[2025-04-05] MEDS: PROSCAR 5 MG PO (21:30)
[2025-04-05 22:02] LABS: Glucose - Point of Care 170 mg/dl (70-99)
--- NOTE | 2025-04-05 22:11 | PTCARENOTE ---
Received pt at change of shift OOB in chair. SR w/ 1st degree AVB and BBBC on tele, HR 60's-70's. pt denies any CP or SOB. pt c/o neck and back pain 12/08. PRN Tramadol administered per pt request w/ relief. pt encouraged to call RN for assistance
ambulating. pt verbalizes understanding and calls appropriately. Call funes within reach.
--- NOTE | 2025-04-05 23:00 | PTCARENOTE ---
report received from previous RN. pt in bed, sleeping. at bedside. VSS. SR w 1st degree AVB + BBB on monitor, HR 60's-70's. +3 bilateral LE edema noted. +peripheral pulses. heart tones audible. +murmur. pt denies any CP or SOB. bilateral breath
sounds present. POX 98% on room air. PIV intact and patent. see worklist for full assessment, VS, and interventions.
--- NOTE | 2025-04-05 23:00 | PTCARENOTE ---
report received from previous RN. pt in bed, sleeping. VSS. SR w 1st degree AVB + BBB on monitor, HR 60's-70's. +3 bilateral LE edema noted. +peripheral pulses. heart tones audible. +murmur. pt denies any CP or SOB. bilateral breath sounds present.
POX 98% on room air. PIV intact and patent. see worklist for full assessment, VS, and interventions.
[2025-04-06] VITALS (11 sets, daily range): BP systolic 105–170; BP diastolic 53–130; BMI 34.4
[2025-04-06] MEDS: AMPICILLIN 108 MG IV ×4 (03:47→16:57)
[2025-04-06 04:06] LABS: INR 1.27; PT 16.2 Sec (11.4-14.6)
[2025-04-06 04:07] LABS: APTT 43.9 Sec (23.4-35.0)
[2025-04-06 04:17] LABS: ALT (SGPT) 42 U/L (0-50); AST (SGOT) 37 U/L (17-59); Albumin 2.7 g/dl (3.5-5.0); Alkaline Phosphatase 133 U/L (38-126); Blood Urea Nitrogen 14 mg/dl (9-20); Calcium 8.1 mg/dl (8.4-10.2); Carbon Dioxide 30 mmol/L (22-30); Chloride 102 mmol/L (98-107); Estimated Creatinine Clearance 112 ml/min; Glucose 147 mg/dl (70-99); Magnesium 2.0 mg/dl (1.6-2.3); Potassium 3.7 mmol/L (3.5-5.1); Sodium 137 mmol/L (135-145); Total Protein 5.9 g/dl (6.3-8.2); eGFR > 60.00
[2025-04-06 05:09] LABS: Hematocrit 42.2 % (39.0-52.0); Hemoglobin 13.2 g/dL (13.0-18.0); Mean Corp Hgb Conc. 31.3 g/dL (33.0-37.0); Mean Corpuscular Volume 85.9 fL (80.0-94.0); Platelet Count 219 10^3/uL (130-400); Red Cell Dist. Width 15.5 % (11.5-14.5)
[2025-04-06] MEDS: CALCIUM GLUCONATE 100 IV (05:51)
[2025-04-06] MEDS: KCL 40 MEQ PO (05:51)
[2025-04-06 07:10] LABS: Glucose - Point of Care 157 mg/dl (70-99)
[2025-04-06] MEDS: CARDIZEM CD 180 MG PO (07:27)
[2025-04-06] MEDS: PACERONE 200 MG PO (07:27)
[2025-04-06] MEDS: ASPIR LOW (ENTERIC COATED) 81 MG PO (07:27)
[2025-04-06] MEDS: LASIX 40 MG IV (07:27)
[2025-04-06] MEDS: TOPROL XL 100 MG PO (07:27)
[2025-04-06] MEDS: CRESTOR 10 MG PO (07:27)
[2025-04-06] MEDS: FLUSH (NSS) 2 FLUSH IV ×2 (07:28→16:58)
[2025-04-06] MEDS: NOVOLOG FLEXPEN-LOW RESISTANCE 1 UNITS SC ×2 (08:08→13:44)
--- NOTE | 2025-04-06 08:28 | W.PN.ID1 ---
Date of Service
Date of Service: April 06, 2025
Today's Communication
continue current antibiotics
Assessment / Plan
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
L2/L3 discitis - suspected due to E Faecalis
Probable Septic emboli - Acute embolic infarctions within the brain
[facility] E faecalis is amp sensitive
- continue ampicillin 2 gm iv q4 hours, continue ceftriaxone 2 gm IV q12
- will require a prolonged course of IV antibiotics and suppression
- blood cultures x2 here are in progress and have grown E faecalis - pending sensitivities
- 04/04 repeat blood cultures x2 are in - GPCs in chains
- repeat blood cultures x2 today
- follow up CT surgery recommendations - if patient is taken for surgery please send aerobic and anaerobic cultures
- brain MR - acute embolic disease with multiple small acute infarcts, subacute intraparenchymal hemorrhage in the lateral right parietal lobe
- MRI of thoracic spine with probable lymphadenopathy, no evidence of discitis/OM at this level;
- lumbar MRI: reactive changes at L2/L3 no abscess or phlegmon
- CT surgery considering explant of the valve; possibly for the OR saturday
Lower extremity edema
- without evidence of infection
- compression
Chief Complaint
-: Other (endocarditis)
Subjective / Review of Systems
afebrile
bp stable
in good spirits
Vital Signs / Physical Exam
Vital Signs
Vital Signs
Temp Pulse Resp BP Pulse Ox
97.9 F 80 18 122/64 95
04/06/25 07:10 04/06/25 08:00 04/06/25 07:10 04/06/25 07:07 04/06/25 07:10
Physical Exam
Constitutional: No Acute Distress
Cardiovascular: Regular Rate, S1/S2 and Murmur; Negative Rub
Pulmonary: Clear and Symmetric; Negative Wheezes or Rales
Gastrointestinal: Soft, Non Tender, Non Distended and Normal Bowel Sounds
Skin: Warm and Dry; Negative Rash or Jaundice
Objective Data
Lab Data
Lab Results
04/06/25 03:41
04/06/25 03:41
PT 16.2 Sec (11.4-14.6) H 04/06/25 03:41
INR 1.27 04/06/25 03:41
APTT 43.9 Sec (23.4-35.0) H 04/06/25 03:41
Estimated Creat Clear 112 ml/min 04/06/25 03:41
Total Bilirubin 0.4 mg/dl (0.2-1.3) 04/06/25 03:41
AST 37 U/L (17-59) 04/06/25 03:41
ALT 42 U/L (0-50) 04/06/25 03:41
Alkaline Phosphatase 133 U/L (38-126) H 04/06/25 03:41
Most recent labs reviewed.
Micro Results:
04/04/25 11:39 Blood Culture - Preliminary
Blood/Venous Positive culture in progress
Gram Stain - Preliminary
04/02/25 23:04 Blood Culture - Preliminary
Blood/Venous Enterococcus faecalis
Gram Stain - Final
04/04/25 10:00 Blood Culture - Preliminary
Blood/Venous No Growth in 24 hours- Final report to follow
04/03/25 00:24 Blood Culture - Preliminary
Blood/Venous Enterococcus faecalis
Gram Stain - Final
04/02/25 23:04 MRSA Screen - Final
Nose No Methicillin Resistant Staphylococcus aureus isolated.
--- NOTE | 2025-04-06 09:30 | PN.CDI ---
CDI
- -
CDI:
Physician Documentation Request
Admit Date: 04/02/25 21:06
Dear Doctor Sean,
H&P states patient ' He has been having fevers and chills and sweats for the past month....He was advised to come to the emergency room and came to [facility] on 03/31. He was started on empiric vancomycin/cefepime for presumed
endocarditis.He had blood cultures positive for Enterococcus faecalis.....He had DONOVAN today which showed findings suggesting of left atrial abscess. Patient was transferred to [facility] for cardiothoracic evaluation. PLAN: # Enterococcus
faecalis bacteremia # Left atrial mass likely abscess'
Cardiology consultation 04/03 states 'It is very possible the symptoms are related to his bacteremia/sepsis.'
Please indicate in your progress notes if you are in agreement that the above diagnosis is valid for this patient:
____ - Sepsis is a valid diagnosis (please clarify if POA)
____ - Sepsis is not a valid diagnosis for this patient- Bacteremia only
____ - Other
Use of terms such as suspected, likely, concern for, or probable are acceptable for a diagnosis that is being evaluated, monitored or treated as if it exists and can be coded in the inpatient setting, when documented at the time of discharge.
Thank you,
Meghann BORREGON
CDI Specialist
tiger text
Please use your independent medical judgment in providing your response.
--- NOTE | 2025-04-06 10:46 | CM ---
Chart reviewed. Patient is independent of ADLS, lives with his in a split level, 3 JUNA J, patient has back pain so has been ambulating with a RW and SPC. Patient going for an AVR, waiting on timing. Patient will need functional assessment to
determine discharge needs. Plan is for the patient to return home with CT Transitional RN vs Rehab. CM to follow
--- NOTE | 2025-04-06 11:12 | PTCARENOTE ---
The patient was sitting in his chair and his HR decreased to 36 BPM. Sinus lewis was noted on the monitor with a 1st degree AVB of 0.64. He was asymptomatic with no complaints. ANDRE Cisneros notified.
--- NOTE | 2025-04-06 11:13 | W.PN.CARDCBS ---
Addendum entered and electronically signed by Roque David MD 04/06/25 11:24:
I saw and examined the patient.
The CUSTOMER CONTACT SALES ASSOCIATE or PA's note was reviewed and I agree with the note.
Comment: General: Well developed, well nourished in NAD.
Neck: Supple, no JVD, HJR, carotids +2 B/L, no bruits bilaterally.
Heart: Non displaced PMI, RRR, 2/6 basal systolic murmur, No S3, S4, no rubs.
Lungs: Clear to auscultation bilaterally, no wheeze, rhonchi, rubs bilaterally,
normal expiratory phase.
Extremities: No clubbing, cyanosis or edema bilaterally.
Neuro: Grossly nonfocal, awake, alert and oriented x3.
Telemetry with continued prolonged first-degree AV block. Await orthopedic input regarding discitis before possible CT surgery intervention. Reviewed DONOVAN with CT surgery on 04/05. There is possibly aortic root abscess.
Original Note:
Today's Communication / Plan
-
Orthopedic surgery now consulted
Enterococcus faecalis positive blood cultures as recently as 04/04/2025
Impression / Plan
-
PCP: Dr. Gordon Ortega
Cardiology: Dr. Patel
EP: Dr. Duran
Impression:
Transferred from [facility] to [facility] for concern for endocarditis 04/02/2025
Admitted to [facility] with back pain 03/31/2025
Enterococcus faecalis bacteremia seen at [facility] 03/31/2025
Enterococcus faecalis positive blood cultures as recently as 04/04/2025
Abnormal DONOVAN concerning for abscess in the LA from the anterior mitral valve insertion 04/02/2025
s/p TAVR for severe 2022
Chronic back pain with outpatient MRI suggesting L3-L4 discitis 03/2025
s/p outpatient epidural injections for low back pain
Dysarthria and confusion 04/03/2025
Chronic HFpEF
cRBBB with first-degree AV delay
Paroxysmal A-fib
s/p PVI 01/26/2025
Chronic Eliquis OAC
Chronic amiodarone therapy
Hyperlipidemia
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
Testing at [facility] included:
-Outpatient MRI of his back was suggestive of L3-L4 discitis
-Echo on 04/01/25 revealed LVEF 60-65%, moderately dilated left atrium, mild mitral valve regurgitation, mildly elevated pulmonary artery systolic pressure. Aortic valve was not well-visualized, appeared to be bioprosthetic TAVR valve with only
trivial aortic insufficiency and elevated mean gradient of 26 mmHg
-DONOVAN on 04/02/25 revealed moderately dilated left atrium. There was 3 x 0.5 cm laminar shaped heterogenous echogenicity in the left atrium from anterior mitral valve insertion. This can be consistent with abscess. Less likely thrombus. No obvious
fistula was identified. Bioprosthetic aortic valve was identified. Visualization was limited due to acoustic shadow but left coronary leaflet was thickened with echogenicity. No significant AI was noted. . There was normal RV and LV function and
mild MR.
Plan:
-Patient with chronic back pain and receives epidural injections as an outpatient, then had an outpatient MRI for increasing back pain that suggested L3-L4 discitis 03/2025. Patient then admitted to [facility] with back pain 03/31/2025 and blood cultures
were positive for Enterococcus faecalis and DONOVAN suggested possible TAVR valve leaflet thickening, but CTA did not show aortic root abscess or obvious LA mass. Patient was transferred to [facility] 04/02/[address] surgery evaluation
-Case reviewed with nursing 04/06/[address] surgery teams expected to see the patient and family to discuss plan. Patient is being considered for TAVR explant and tissue AVR and evaluation of endocardium for lesions at time of surgery, this may
happen on 04/07/2025.
-Telemetry reviewed by me 04/06/2025 and patient has a long first-degree AV block, he has had first-degree AV block and cRBBB in the past,, but first-degree AV block appears longer than it did at the time of his PVI 01/26/2025. These changes could be
concerning for possible progression of aortic valve/annular disease or abscess
-Initial blood cultures at [facility] were positive for Enterococcus faecalis. Blood cultures repeated upon arrival to [facility] and were again positive for Enterococcus faecalis on 04/02/2025, 04/03/2025 and on one of the sets drawn 04/04/2025.
-Patient with dysarthria on 04/03/[address] of the head followed by MRI of the brain suggesting infective embolic events that are at high risk for hemorrhagic conversion. Neurology is now following as well and recommend that we continue to
hold Eliquis, the patient can receive aspirin 81 mg daily.
-MRI of the spine 04/05/2025 did not show any evidence for discitis or osteomyelitis in the thoracic spine. Outpatient MRI 03/2025 suggested L3-L4 discitis according to records from [facility]. My review of active orders on 04/06/2025 shows that orthopedic
surgery is now consulted to see the patient
-Patient with known paroxysmal A-fib, he had a successful PVI 01/26/2025 and remains in SR on my review of telemetry 04/05/2025.
-Outpatient dose of Eliquis 5 mg BID is on hold due to risk of hemorrhagic conversion of his infective embolic strokes
-Outpatient dose of amiodarone 200 mg daily has been continued. QTc 535 ms on ECG 04/05/2025
-Outpatient dose of Toprol-XL 100 mg daily will be decreased to 50 mg daily and follow telemetry, orders placed by me
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
Subjective
Date of Service: April 06, 2025
Denies feeling lightheaded or dizzy
Objective
Labs:
04/06/25 03:41
04/06/25 03:41
Labs
Hgb 13.2 g/dL (13.0-18.0) D 04/06/25 03:41
Hct 42.2 % (39.0-52.0) 04/06/25 03:41
Plt Count 219 10^3/uL (130-400) D 04/06/25 03:41
PT 16.2 Sec (11.4-14.6) H 04/06/25 03:41
INR 1.27 04/06/25 03:41
APTT 43.9 Sec (23.4-35.0) H 04/06/25 03:41
Sodium 137 mmol/L (135-145) 04/06/25 03:41
Potassium 3.7 mmol/L (3.5-5.1) 04/06/25 03:41
BUN 14 mg/dl (9-20) 04/06/25 03:41
Creatinine 0.6 mg/dL (0.7-1.3) L 04/06/25 03:41
Glucose 147 mg/dl (70-99) H 04/06/25 03:41
Vital Signs and I&O:
Vital Signs
Temp Pulse Resp BP Pulse Ox
97.9 F 80 18 122/64 95
04/06/25 07:10 04/06/25 08:00 04/06/25 07:10 04/06/25 07:07 04/06/25 07:10
Vital Signs
Temp Pulse Resp BP Pulse Ox
97.9 F 80 18 122/64 95
04/06/25 07:10 04/06/25 08:00 04/06/25 07:10 04/06/25 07:07 04/06/25 07:10
Intake & Output
04/04/25 04/05/25 04/06/25 04/07/25
06:59 06:59 06:59 06:59
Intake Total 100 / 100 824 / 824 680 / 680 108 / 108
Output Total 1850 / 1850 1125 / 1125 1075 / 1075 450 / 450
Balance -1750 / -1750 -301 / -301 -395 / -395 -342 / -342
Physical Exam
Physical Exam
GEN: AAO x 3
HEENT: EOMI, MMM
LUNGS: RA. No wheeze
CV: SR on telemetry.
--- NOTE | 2025-04-06 12:07 | W.PN.UPDATE ---
Update Note
Progress Note Update
Procedure Type:�Isolated AVR
Perioperative Outcome Estimate %
Operative Mortality 5.24%
Morbidity & Mortality 17.7%
Stroke 3.07%
Renal Failure 3.34%
Reoperation 4.63%
Prolonged Ventilation 9.58%
Deep Sternal Wound Infection 0.299%
Long Hospital Stay (>14 days) 25.6%
Short Hospital Stay (<6 days)* 9.7%
Clinical Summary
Planned Surgery: Isolated AVR, Urgent, First cardiovascular surgery
Demographics: 84 year old, male, 105.7kg, 175cm, BMI: 34.5 kg/m�
Lab Values: Creatinine: 0.6 mg/dL, Hematocrit: 42.2%, WBC Count: 8.6 10�/�L, Platelet Count: 930861 cells/�L
PreOp Medications: Oral diabetes control
Substance Abuse: Current smoker
Risk Factors / Comorbidities: Diabetes Mellitus , Active Endocarditis, Hypertension
Pulmonary RF: Sleep Apnea
Vascular RF: Cerebrovascular Disease: CVA <=30 days
Cardiac Status: Ejection Fraction = 60%
Coronary Artery Disease: No coronary symptoms
Arrhythmia: Recent A-fib, Paroxysmal
Prev. Cardiac Interv: Previous valve: Other valve procedure
[2025-04-06] MEDS: STERILE WATER FOR INJECTION 20 ML IV (12:26)
[2025-04-06] MEDS: ROCEPHIN 2000 MG IV (12:26)
[2025-04-06] MEDS: FLUSH (NSS) 3 FLUSH IV (12:27)
--- NOTE | 2025-04-06 12:33 | CON.NS ---
Consultation
-
Date/Time Consultation Performed: 04/06/2025, 12:34 PM.
Performing Provider: Luis
Chief Complaint
History of Present Illness
This is a neurosurgical consultation on an 84-year-old gentleman who presented on 04/02/2025 as a transfer from [facility] for endocarditis to the cardiac service. He has active issues including atrial fibrillation, status post
cardioversion, congestive heart failure, chronic back pain, aortic stenosis, status post TAVR.
Patient has history of several month of low back pain. He saw his orthopedist who ordered an outpatient MRI, that demonstrated findings suspicious for discitis. He was noted to have fevers, chills, sweats for the past month. He presented to the
outside hospital on 03/31/2025. He was started on empiric antibiotics for presumed endocarditis. Blood cultures were positive for Enterococcus faecalis. DONOVAN demonstrated left atrial abscess, and patient was transferred to [facility] for
cardiothoracic evaluation.
As reported, per CT surgery GALLO, the patient had recent L3/L4 discitis, status post epidural injection in March 2025. Aspiration was not obtained at outside hospital. Neurosurgery consults requested prior to going to surgery for patient's
endocarditis.
Patient is being considered for TAVR explant and tissue AVR and evaluation of endocardium for lesions at time of surgery which may happen on 04/07/2025.
Patient seen and examined. NAD. Discussing with anesthesia regarding cardiac procedure for tomorrow. During later encounter, patient's daughter, and his comes into the room.
Patient reports that his back pain is somewhat better right now. He denies any radiating pain into the lower extremities, numbness, tingling or weakness to lower extremities. He denies any bowel or bladder changes.
Review of Systems
-
10 point review of systems including constitutional, ENT, cardiovascular, respiratory, GI, , endocrinology, hematologic, neurologic, musculoskeletal was performed, and was negative except for as stated in HPI.
Medication and Allergies
Home Medications
Home Medications
�Medication �Instructions �Recorded
finasteride 5 mg tablet 5 mg PO HS 06/05/22
amiodarone 200 mg tablet 200 mg PO DAILY 12/25/24
apixaban 5 mg tablet (Eliquis) 5 mg PO BID 12/25/24
cholecalciferol (vitamin D3) 125 125 mcg PO DAILY 12/25/24
mcg (5,000 unit) tablet (Vitamin
D3)
diltiazem HCl 180 mg capsule,24 180 mg PO DAILY 12/25/24
hr,extended release
empagliflozin 25 mg tablet 25 mg PO DAILY 12/25/24
(Jardiance)
metoprolol succinate 100 mg 50 mg PO DAILY 12/25/24
tablet,extended release 24 hr
rosuvastatin 10 mg tablet 10 mg PO DAILY 12/25/24
furosemide 20 mg tablet 60 mg PO DAILY 01/26/25
metformin 500 mg tablet 1,000 mg PO BID Diabetes 01/26/25
Allergies
Allergies
Allergy/AdvReac Type Severity Reaction Status Date / Time
No Known Allergies Allergy Verified 12/25/24 08:51
Physical Exam
-
Exam:
awake, alert, sitting upright in chair,
NAD
CN 2-12 grossly intact
Motor: 5/5 strength bilaterally in lower extremities.
Head: NCAT
Breathing nonlabored
Abdoment soft
Extremties warm
Thoracic spine MRI performed at [facility] on 04/05/2025 was reviewed. Images reports viewed and interpreted by me. I see no obvious evidence of thoracic spinal cord compression, or abnormal STIR signal hyperintensity within the thoracic
vertebral bodies.
MRI of the lumbar spine is not available for review. Per chart review, there was suspicion of L3-L4 osteomyelitis/discitis. CT of the chest/abdomen/pelvis is available for review from 04/03/2025. There is evidence of posterior inferior lysis of
the L2 vertebral body. Superior endplate of L3 appears to be intact
Assessment / Plan
-
This is an 84-year-old gentleman with a history of TAVR, and chronic with progressive back pain-- currently states that back pain is not severe, and somewhat improved, compared to presentation.
There is note made that there was outside MRI that demonstrated potentially lumbar osteomyelitis/discitis.
I do not have these imaging studies for review.
That being said, would recommend medical management of patient's underlying infectious causes/bacteremia/endocarditis with aggressive antibiotic treatment +/- cardiac surgery as indicated, as this will likely also treat any potential lumbar
osteomyelitis/discitis that was likely a consequent seeding to the spine from the bacteremia.
Follow sequential ESR/CRP per infectious disease.
If the patient's back pain persists, or there are new neurological symptoms, can consider follow-up/repeat MRI of the lumbar spine.
[2025-04-06 13:43] LABS: Glucose - Point of Care 164 mg/dl (70-99)
--- NOTE | 2025-04-06 13:49 | W.PN.UPDATE ---
Update Note
Progress Note Update
CARDIAC SURGERY ATTENDING:
It was my pleasure to meet with Mr. Roque Huynh and his and daughter at bedside today. He is a very pleasant 84-year-old gentleman who is well-known to me status post his TAVR. 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
cerebral hemispheres without significant deficit.
I greatly appreciate all the multidisciplinary discussions and preoperative management of this patient. I plan to take him tomorrow, 04/07/2025, for surgery. This procedure will involve explant of his aortic valve with potential debridement of
aortic root with patching and subsequent AVR versus complete aortic root replacement, left atrial exploration, management of his left atrial appendage, and placement of epicardial atrial and ventricular leads. I had a long discussion with . "Donte and his family at bedside. We once again reviewed his pathology, discussed the aforementioned planned operative interventions, reviewed the periprocedural risks (including, but not limited to, , stroke, hemorrhagic conversion of his
prior strokes, CO, arrhythmia, likely PPM requirement, PNA, BONNIE/F, bleeding, and infection), discussed the expected and hospital postprocedural course, and reviewed the expected outpatient recovery. All questions were answered to the best of my
ability. Informed consent has been obtained.
Thank you for the opportunity participate in the care of this kind gentleman. Please call with any questions or concerns.
Ramy Mcdonough MD
[phone]
--- NOTE | 2025-04-06 13:56 | W.PN.HOSP.TC ---
Addendum entered and electronically signed by Kevin Estrada MD 04/06/25 14:20:
Concern for Sepsis, POA
Original Note:
Today's Communication/Plan
-
Tomorrow, cardiothoracic surgery to take patient for surgery: explant of his aortic valve with potential debridement of aortic root with patching and subsequent AVR versus complete aortic root replacement, left atrial exploration, management of his
left atrial appendage, and placement of epicardial atrial and ventricular leads
Continue antibiotics
See plan
Assessment / Plan
Assessment / Plan
Physical Exam
General: No Apparent Distress
Respiratory: Clear to Auscultation Bilaterally
Cardiac: Regular Rhythm and S1/S2
GI: Soft. Nontender. Positive bowel sounds.
Neuro: AO x 3 and No Motor Deficits
Psych: Calm
Assessment/Plan
# Enterococcus faecalis bacteremia
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
# L2/L3 discitis - suspected due to E Faecalis
# Probable Septic emboli - Acute embolic infarctions within the brain
- Patient was transferred from [facility] ([facility] to [facility] 04/02/[address] surgery evaluation
- DONOVAN showed 3 x 0.5 cm laminar shaped heterogeneous echogenicity in the left atrium from anterior mitral valve insertion consistent with abscess
- Vancomycin stopped.
- Continue Ampicillin and Ceftriaxone.
- ID following
- Initial blood cultures at [facility] were positive for Enterococcus faecalis.
- Blood cultures repeated upon arrival to [facility] and were again positive for Enterococcus faecalis
- Follow repeat blood cultures
- MRI Thoracic Spine with probable lymphadenopathy, with no evidence of discitis/OM
- Lumbar Spine MRI from March 2025, results showed reactive changes at L2/L3 no abscess or phlegmon but suggested L3 to L4 discitis
- Cardiology consulted
- Cardiothoracic surgery following -- they are considering explant of the valve, they have the DONOVAN images; possibly for the OR on 04/07/25 -- okay from neurology standpoint to proceed with surgery
- Heparin Drip was previously stopped due to acute embolic infarcts in the brain -- also of course avoid routine use of apixaban at this time due to risk of hemorrhagic conversion of what are presumed to be septic emboli in bilateral hemispheres;
return to the
use of Apixaban after discontinuance of antibiotics
- Start aspirin 81 mg while patient is being treated for presumed septic emboli
- Follow-up lipid profile
- Check carotid ultrasound to ensure no significant stenosis present
- On 04/07/25, cardiothoracic surgery to take patient for surgery: explant of his aortic valve with potential debridement of aortic root with patching and subsequent AVR versus complete aortic root replacement, left atrial exploration, management of
his left atrial appendage, and placement of epicardial atrial and ventricular leads
#Prolonged First Degree AV Block on telemetry
-Could be concerning for possible progression of aortic valve/annular disease or abscess
-Continue telemetry monitoring in IVU
#Transient speech disturbances secondary to acute embolic disease with multiple small acute ischemic infarcts in both cerebral hemisphere. 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 There is also small 7 mm subacute intraparenchymal hemorrhage in the
lateral right parietal lobe. IV heparin discontinued as high risk situation for hemorrhagic conversion. Continue Aspirin. Appreciate neurology input.
# L2-L3 disc edema possible discitis
- Patient was evaluated by orthopedics at [facility] who considered aspiration of the disc but they thought endocarditis was more likely the source of patient's presentation
- Ortho/neurosurgery consulted here, appreciate their evaluation
-no neurological symptoms
- continue tramadol
- Improving pain
# Severe aortic stenosis status post TAVR in 2022
# Left lower extremity lymphedema/less likely cellulitis
-Weeping from left lower extremity from edema
-Venous ultrasound was negative for DVT
- Continue with IV Lasix
Chronic HFrEF-suspect a mild acute decompensation-patient now requiring oxygen and has bilateral crackles.
- proBNP high at 6470
- Continue Lasix 40 mg IV daily
- Continue SGLT2i and metoprolol
Chronic atrial fibrillation status post cardioversion/ablation, status post successful PVI 01/26/2025
- Continue amiodarone
- Hold Eliquis, hold IV heparin because of embolic strokes
- Outpatient dose of Toprol-XL 100 mg daily reduced to 50 mg pema given telemetry with more prolonged heart block
Worsening of chronic anemia
- Monitor hemoglobin trend
- Transfuse for hemoglobin under 8
- Patient denies any blood in the stool or black stool
Essential hypertension
Hyperlipidemia
- Continue statin
Type 2 diabetes
- Hold metformin
- Insulin sliding scale
- Continue SGLT2i
Obesity
Prior alcohol use disorder
- No longer drinks significant alcohol
Obstructive sleep apnea
Gout
Spinal stenosis/chronic back
BPH
- Continue finasteride
Former alcohol use disorder
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
Discussed with RN
Full code
DVT prophylaxis�Lovenox (or as per cardiothoracic surgeon)
Cardiac diet
Anticipated Discharge: > 48 hours
Subjective/Interval History
-
Date of Service: April 06, 2025
Patient was seen and examined. He stated that he was doing well and denied any new symptoms or complaints.
Objective Data
-
Labs:
Laboratory Results
04/06/25
03:41
WBC 8.6
Hgb 13.2 D
Hct 42.2
Plt Count 219 D
PT 16.2 H
INR 1.27
APTT 43.9 H
Sodium 137
Potassium 3.7
Chloride 102
Carbon Dioxide 30
BUN 14
Creatinine 0.6 L
Glucose 147 H
Calcium 8.1 L
Total Bilirubin 0.4
AST 37
ALT 42
Alkaline Phosphatase 133 H
Vital Signs:
Vital Signs
Temp Pulse Resp BP Pulse Ox
98.9 F 67 18 120/62 97
04/06/25 12:35 04/06/25 12:35 04/06/25 12:35 04/06/25 12:33 04/06/25 12:35
I&O
04/05/25 04/06/25 04/07/25
06:59 06:59 06:59
Intake Total 824 / 824 680 / 680 216 / 216
Output Total 1125 / 1125 1075 / 1075 450 / 450
Balance -301 / -301 -395 / -395 -234 / -234
--- NOTE | 2025-04-06 14:32 | PTCARENOTE ---
The patient's HR decreasing to the 30s-40s more frequently. The patient was sitting the chair. He stated that he 'felt great'. We assisted him back to bed. When he stood up he stated that he felt 'a little dizzy.' Dr. Mcdonough in to see the patient.
ECG done showing sinus rhythm with a complete heart block and idioventricular rhythm with PVCs. Roxanne Cisneros in to see the patient and read the ECG. She also spoke with the patient and his family. Defibrillator pads placed on the patient.
--- NOTE | 2025-04-06 15:03 | W.PN.UPDATE ---
Update Note
Progress Note Update
Patient seen and telemetry reviewed. Patient presented with markedly prolonged first-degree AV delay compared to December and a constellation of symptoms over 4 to 6 weeks starting in late January including back pain and neurologic sequelae. He had
uneventful recovery in the first month after his PVI in late December. Sinus rhythm with improved ejection fraction 60 to 65% from that procedure. He did have transient asymptomatic high-grade AV block this afternoon in the setting of receiving AV
misa agents and amiodarone. We will discontinue his metoprolol and amiodarone.
Appreciate CT surgical input and plan. I personally reviewed his DONOVAN and communicated with both CT surgical team and with his outpatient electrical tech/project manager Dr. Patel.
Given his markedly prolonged LA interval and need for removal of the transcatheter valve along with the possibility of need for extensive debridement I think it is highly likely he will have need for permanent pacing postoperatively. Given ongoing
Enterococcus in his blood cultures I would favor an epicardial system with an atrial and ventricular epicardial leads. He has normal ejection fraction so no clear need for resynchronization.
Dr. Mcdonough will tentatively plan the addition of these leads tomorrow at time of surgery depending upon clinical stability and tunnel the leads into a left deltopectoral groove pocket. We can connect these leads to a generator in the first few
postoperative days or whenever needed. It would be reasonable to leave temporary epicardial wires for redundancy in the immediate postoperative state.
I communicated my recommendations also to the family and patient at bedside who are in full agreement with plan. Plan B would be a Micra implant if epicardial system cannot be placed due to to a variety reasons such as infection or available
anatomy. I did describe an approximate 25-50% chance of endocardial infection from endocardial hardware and as such would favor an epicardial system placed at time of surgery.
Will follow closely with you
No current indication for temporary pacing but will follow closely. Will hold amiodarone and metoprolol in anticipation of surgery tomorrow.
[2025-04-06 17:36] LABS: Glucose - Point of Care 137 mg/dl (70-99)
[2025-04-06] MEDS: NOVOLOG FLEXPEN-LOW RESISTANCE SC (17:36)
[2025-04-06 18:47] LABS: Hematocrit 30.9 % (39.0-52.0); Hemoglobin 9.9 g/dL (13.0-18.0); Mean Corp Hgb Conc. 32.0 g/dL (33.0-37.0); Mean Corpuscular Volume 85.6 fL (80.0-94.0); Nucleated Red Blood Cells % 0 % (-); Platelet Count 370 10^3/uL (130-400); Red Cell Dist. Width 15.6 % (11.5-14.5)
[2025-04-06 18:55] LABS: Blood Urea Nitrogen 13 mg/dl (9-20); Calcium 8.2 mg/dl (8.4-10.2); Carbon Dioxide 28 mmol/L (22-30); Chloride 102 mmol/L (98-107); Estimated Creatinine Clearance 96 ml/min; Glucose 155 mg/dl (70-99); Potassium 3.7 mmol/L (3.5-5.1); Sodium 136 mmol/L (135-145); eGFR > 60.00
--- NOTE | 2025-04-06 18:57 | W.PN.UPDATE ---
Update Note
Progress Note Update
I was called to bedside for VT/VF arrest. Review of the telemetry showed bradycardia with salvos of VT/VF which deteriorated into TdP. Code 9 activated and the patient received two shocks.
He was given a bolus of amiodarone and lidocaine but did not need chest compressions.
On my arrival, the patient is awake and speaking coherently. He continues to have high grade heart block and salvos of NSVT.
After conferring with CT surgery, the plan is to take the patient to the OR tonight for Valve explant.
laborer pole crew activated for temp wire placement to avoid a repeat bradycardic arrest and to allow for amiodarone infusion.
--- NOTE | 2025-04-06 19:05 | W.PN.UPDATE ---
Update Note
Progress Note Update
Came in from home to evaluate patient after being contacted by CT surgery PA that patient was having frequent ventricular ectopy on telemetry and subsequently VFib.
Patient required defibrillation x1.
At the time of my evaluation patient was awake and alert resting comfortably in the IVU with no cardiac complaints
Telemetry reviewed from the episode. Appears patient was having frequent PVCs/NSVT which degraded into VFib.
Currently in sinus bradycardia with HR of 50 bpm on lido and amio gtts
Telemetry reviewed with EP by phone. VT/VF is likely bradycardia mediated. Recommendation was to stop lidocaine. Keep amiodarone. And that patient would benefit from TVP.
Spoke with interventionalist who is planning to place TVP urgently.
Timing of OR per CT surgery. They are discussing taking the patient this evening.
Discussed with interventional cardiology, CT surgery, EP as well as nurses at bedside.
CCT: 32 min
--- NOTE | 2025-04-06 19:08 | PTCARENOTE ---
pt clipped and prepped w CHG for the OR.
[2025-04-06 19:11] LABS: Troponin I 0.066 ng/ml
--- NOTE | 2025-04-06 19:15 | PTCARENOTE ---
Patient sent to the label stamper.
--- NOTE | 2025-04-06 19:35 | PTCARENOTE ---
At approximately 1810 this evening, the patient's heart monitor began to alarm sinus lewis with a HR of 35. The patient stated that he felt 'okay' and said he just finished eating dinner. An ECG showed STEMI, undetermined rhythm with couplet and
triplet PVCs. While I was attempting to text the sports nutritionist stock raiser, the patient went into V-fib. He was shaking and unresponsive. He immediately came out of the rhythm and was talking again with no memory of what had occurred. Frederic the CT ANDRE
happened to be walking by and stayed to assist. In addition, so did Anitra the nurse educator. The code cart was retrieved, the defibrillator pads were applied, and he was hooked up to the defibrillator monitor. The patient again became unresponsive
and went into V-fib to which he was shocked with 200J. V-fib broke and patient became alert again. A rapid response was called and then a code was called. A lidocaine bolus of 100mg was given and lidocaine gtt started. In addition, a amiodarone
bolus of 150mg was given and a amiodarone gtt was started too. While given the patient these medications, he went back into V-fib, became unresponsive, and was shocked again with 200J. The V-fib broke and the patient came to. Dr. Crockett and "Mark"Ceasar arrived at the bedside. [facility] Please refer to the rapid response form.
--- NOTE | 2025-04-06 19:52 | ITS.CL.PN ---
Digital Project Coordinator - Procedure Note
Procedure
Procedure Note:
Temporary Pacemaker Insertion
Date: 04/06/2025
Referring: Ramy Mcdonough M.D.
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
Access:
6 Congolese right common femoral vein using a micropuncture kit under ultrasound guidance via a modified Seldinger technique.
Pacemaker Information:
Position: Right ventricular apex.
Current (mA): 20
Rate (bpm): 80
Procedure:
The patient's right neck and inguinal areas were prepped and draped and standard sterile fashion. The right inguinal crease was anesthetized with 1% lidocaine. The right common femoral vein was punctured with a micropuncture needle under
ultrasound guidance using a modified Seldinger technique. While accessing the patient's common femoral vein, the patient lapsed into ventricular fibrillation. The defibrillator was charged to 200 J and the patient was defibrillated, restoring
sinus rhythm with complete heart block and a junctional escape. Fluoroscopy confirmed satisfactory sheath position. The site was serially dilated and an 6 Congolese Arrow sheath was inserted then sutured in place. A temporary pacemaker wire was
covered with a sterile cover, then inserted through the 8.5 Congolese sheath. The tip of the pacemaker was advanced into the apex of the right ventricle. The pacemaker was turned on at 100 bpm at 20 mA. The current was serially decreased showing
good capture at 1 mA. The current was increased to 20 mA and the rate decreased to VVI 80 bpm. The sterile cover was secured and the sheath was covered with two opposing tegaderm dressings. The patient was transferred to [facility] in stable condition.
Radiation (mGy): 39.40
Dose Area Product (Gy*cm2): 5.1821
Fluoroscopy Time (minutes): 1.3
Conclusions:
1. Successful placement of a temporoary pacemaker via right common femoral approach without acute complications.
2. Bradycardic ventricular fibrillation arrest requiring defibrillation.
Recommendations:
1. Minimal manipulation of the right common femoral wire to avoid potential dislodgement.
2. Plan for immediate surgical treatment of bioprosthetic endocarditis.
Copy to: Ramy Mcdonough M.D., Toro Garcia M.D., Rajinder Patel M.D., Tomas Ortega M.D.
[2025-04-06 20:38] LABS: ACT+ - POC 126 Seconds (82-134)
[2025-04-06 21:00] LABS: Urine Character Clear (Clear)
[2025-04-06 21:10] LABS: Urine Red Blood Cell 0-2 /HPF (0-2); Urine Squamous Cell 0-2 /LPF (Few); Urine White Cell 0-2 /HPF (0-5)
[2025-04-06 22:21] LABS: ACT+ - POC 504 Seconds (82-134)
[2025-04-06 22:43] LABS: B.E. - POC 1.1 mmol/L; Glucose - POC 214 mg/dl (70-99); HCO3 - POC 26 mmol/L (21-28); Hematocrit - POC 26 % PCV (42-52); Hemodilution- POC No; Hemoglobin Calculated - POC 8.8; Ionized Calcium - POC 1.11 mmol/L (1.15-1.33); Lactate - POC 1.44 mmol/L (0.36-0.75); O2 Saturation %Calculated-POC 98.8 % (94-98); PCO2 - POC 41 mmHg (35-48); PO2 - POC 122 mmHg (83-108); Potassium - POC 3.1 mmol/L (3.5-5.1); Sodium - POC 139 mmol/L (136-145); Specimen Type - POC Arterial; pH - POC 7.41 (7.35-7.45)
[2025-04-06 22:56] LABS: ACT+ - POC 503 Seconds (82-134)
[2025-04-06 23:21] LABS: B.E. - POC 5.0 mmol/L; Glucose - POC 168 mg/dl (70-99); HCO3 - POC 30 mmol/L (21-28); Hematocrit - POC 24 % PCV (42-52); Hemodilution- POC Yes; Hemoglobin Calculated - POC 8.0; Ionized Calcium - POC 1.02 mmol/L (1.15-1.33); Lactate - POC 0.71 mmol/L (0.36-0.75); O2 Saturation %Calculated-POC 100.0 % (94-98); PCO2 - POC 43 mmHg (35-48); PO2 - POC 405 mmHg (83-108); Potassium - POC 3.4 mmol/L (3.5-5.1); Sodium - POC 141 mmol/L (136-145); Specimen Type - POC Arterial; pH - POC 7.45 (7.35-7.45)
[2025-04-06 23:33] LABS: ACT+ - POC 467 Seconds (82-134)
[2025-04-06 23:59] LABS: B.E. - POC 5.5 mmol/L; Glucose - POC 191 mg/dl (70-99); HCO3 - POC 31 mmol/L (21-28); Hematocrit - POC 32 % PCV (42-52); Hemodilution- POC Yes; Hemoglobin Calculated - POC 10.7; Ionized Calcium - POC 1.09 mmol/L (1.15-1.33); Lactate - POC 1.25 mmol/L (0.36-0.75); O2 Saturation %Calculated-POC 99.8 % (94-98); PCO2 - POC 48 mmHg (35-48); PO2 - POC 239 mmHg (83-108); Potassium - POC 3.7 mmol/L (3.5-5.1); Sodium - POC 141 mmol/L (136-145); Specimen Type - POC Arterial; pH - POC 7.42 (7.35-7.45)
[2025-04-07 00:05] LABS: ACT+ - POC 424 Seconds (82-134)
[2025-04-07 00:28] LABS: B.E. - POC 5.0 mmol/L; Glucose - POC 148 mg/dl (70-99); HCO3 - POC 29 mmol/L (21-28); Hematocrit - POC 26 % PCV (42-52); Hemodilution- POC Yes; Hemoglobin Calculated - POC 8.8; Ionized Calcium - POC 1.08 mmol/L (1.15-1.33); Lactate - POC 1.03 mmol/L (0.36-0.75); O2 Saturation %Calculated-POC 99.9 % (94-98); PCO2 - POC 41 mmHg (35-48); PO2 - POC 333 mmHg (83-108); Potassium - POC 3.4 mmol/L (3.5-5.1); Sodium - POC 140 mmol/L (136-145); Specimen Type - POC Arterial; pH - POC 7.46 (7.35-7.45)
[2025-04-07 00:38] LABS: ACT+ - POC 497 Seconds (82-134)
[2025-04-07 00:58] LABS: B.E. - POC 5.6 mmol/L; Glucose - POC 146 mg/dl (70-99); HCO3 - POC 31 mmol/L (21-28); Hematocrit - POC 26 % PCV (42-52); Hemodilution- POC Yes; Hemoglobin Calculated - POC 8.9; Ionized Calcium - POC 1.15 mmol/L (1.15-1.33); Lactate - POC 1.65 mmol/L (0.36-0.75); O2 Saturation %Calculated-POC 99.9 % (94-98); PCO2 - POC 51 mmHg (35-48); PO2 - POC 337 mmHg (83-108); Potassium - POC 3.8 mmol/L (3.5-5.1); Sodium - POC 142 mmol/L (136-145); Specimen Type - POC Arterial; pH - POC 7.39 (7.35-7.45)
[2025-04-07 01:19] LABS: ACT+ - POC 510 Seconds (82-134)
[2025-04-07 01:53] LABS: B.E. - POC 5.7 mmol/L; Glucose - POC 169 mg/dl (70-99); HCO3 - POC 30 mmol/L (21-28); Hematocrit - POC 27 % PCV (42-52); Hemodilution- POC Yes; Hemoglobin Calculated - POC 9.0; Ionized Calcium - POC 1.09 mmol/L (1.15-1.33); Lactate - POC 2.35 mmol/L (0.36-0.75); O2 Saturation %Calculated-POC 99.9 % (94-98); PCO2 - POC 44 mmHg (35-48); PO2 - POC 327 mmHg (83-108); Potassium - POC 3.8 mmol/L (3.5-5.1); Sodium - POC 142 mmol/L (136-145); Specimen Type - POC Arterial; pH - POC 7.45 (7.35-7.45)
[2025-04-07 01:59] LABS: ACT+ - POC 454 Seconds (82-134)
[2025-04-07 02:11] LABS: B.E. - POC 5.8 mmol/L; Glucose - POC 138 mg/dl (70-99); HCO3 - POC 30 mmol/L (21-28); Hematocrit - POC 24 % PCV (42-52); Hemodilution- POC Yes; Hemoglobin Calculated - POC 8.1; Ionized Calcium - POC 1.10 mmol/L (1.15-1.33); Lactate - POC 2.52 mmol/L (0.36-0.75); O2 Saturation %Calculated-POC 99.9 % (94-98); PCO2 - POC 43 mmHg (35-48); PO2 - POC 320 mmHg (83-108); Potassium - POC 3.5 mmol/L (3.5-5.1); Sodium - POC 138 mmol/L (136-145); Specimen Type - POC Arterial; pH - POC 7.46 (7.35-7.45)
[2025-04-07 02:22] LABS: ACT+ - POC 511 Seconds (82-134)
[2025-04-07 02:53] LABS: B.E. - POC 4.5 mmol/L; Glucose - POC 122 mg/dl (70-99); HCO3 - POC 29 mmol/L (21-28); Hematocrit - POC 22 % PCV (42-52); Hemodilution- POC Yes; Hemoglobin Calculated - POC 7.5; Ionized Calcium - POC 1.03 mmol/L (1.15-1.33); Lactate - POC 2.45 mmol/L (0.36-0.75); O2 Saturation %Calculated-POC 99.9 % (94-98); PCO2 - POC 40 mmHg (35-48); PO2 - POC 333 mmHg (83-108); Potassium - POC 3.7 mmol/L (3.5-5.1); Sodium - POC 141 mmol/L (136-145); Specimen Type - POC Arterial; pH - POC 7.47 (7.35-7.45)
[2025-04-07 03:01] LABS: ACT+ - POC 444 Seconds (82-134)
[2025-04-07 03:40] LABS: B.E. - POC 5.2 mmol/L; Glucose - POC 141 mg/dl (70-99); HCO3 - POC 29 mmol/L (21-28); Hematocrit - POC 23 % PCV (42-52); Hemodilution- POC Yes; Hemoglobin Calculated - POC 7.8; Ionized Calcium - POC 1.06 mmol/L (1.15-1.33); Lactate - POC 2.59 mmol/L (0.36-0.75); O2 Saturation %Calculated-POC 99.9 % (94-98); PCO2 - POC 41 mmHg (35-48); PO2 - POC 270 mmHg (83-108); Potassium - POC 4.4 mmol/L (3.5-5.1); Sodium - POC 141 mmol/L (136-145); Specimen Type - POC Arterial; pH - POC 7.46 (7.35-7.45)
[2025-04-07 03:46] LABS: ACT+ - POC 456 Seconds (82-134)
[2025-04-07 04:12] LABS: B.E. - POC 2.2 mmol/L; Glucose - POC 199 mg/dl (70-99); HCO3 - POC 26 mmol/L (21-28); Hematocrit - POC 25 % PCV (42-52); Hemodilution- POC Yes; Hemoglobin Calculated - POC 8.5; Ionized Calcium - POC 1.18 mmol/L (1.15-1.33); Lactate - POC 3.07 mmol/L (0.36-0.75); O2 Saturation %Calculated-POC 100.0 % (94-98); PCO2 - POC 36 mmHg (35-48); PO2 - POC 423 mmHg (83-108); Potassium - POC 4.0 mmol/L (3.5-5.1); Sodium - POC 138 mmol/L (136-145); Specimen Type - POC Arterial; pH - POC 7.47 (7.35-7.45)
[2025-04-07] MEDS: LIDOCAINE 4% PATCH TOPICAL ×2 (04:23→20:41)
[2025-04-07] MEDS: PROSCAR PO (04:23)
[2025-04-07 04:24] LABS: ACT+ - POC 456 Seconds (82-134)
[2025-04-07 04:40] LABS: B.E. - POC -0.5 mmol/L; Glucose - POC 266 mg/dl (70-99); HCO3 - POC 22 mmol/L (21-28); Hematocrit - POC 25 % PCV (42-52); Hemodilution- POC Yes; Hemoglobin Calculated - POC 8.5; Ionized Calcium - POC 1.11 mmol/L (1.15-1.33); Lactate - POC 5.17 mmol/L (0.36-0.75); O2 Saturation %Calculated-POC 100.0 % (94-98); PCO2 - POC 27 mmHg (35-48); PO2 - POC 460 mmHg (83-108); Potassium - POC 4.0 mmol/L (3.5-5.1); Sodium - POC 141 mmol/L (136-145); Specimen Type - POC Arterial; pH - POC 7.52 (7.35-7.45)
[2025-04-07 04:55] LABS: ACT+ - POC 539 Seconds (82-134)
[2025-04-07 05:22] LABS: B.E. - POC -2.9 mmol/L; Glucose - POC 286 mg/dl (70-99); HCO3 - POC 22 mmol/L (21-28); Hematocrit - POC 25 % PCV (42-52); Hemodilution- POC Yes; Hemoglobin Calculated - POC 8.6; Ionized Calcium - POC 1.10 mmol/L (1.15-1.33); Lactate - POC 6.02 mmol/L (0.36-0.75); O2 Saturation %Calculated-POC 100.0 % (94-98); PCO2 - POC 35 mmHg (35-48); PO2 - POC 459 mmHg (83-108); Potassium - POC 4.0 mmol/L (3.5-5.1); Sodium - POC 141 mmol/L (136-145); Specimen Type - POC Arterial; pH - POC 7.40 (7.35-7.45)
[2025-04-07 05:33] LABS: ACT+ - POC 538 Seconds (82-134)
[2025-04-07 05:53] LABS: B.E. - POC -3.8 mmol/L; Glucose - POC 295 mg/dl (70-99); HCO3 - POC 22 mmol/L (21-28); Hematocrit - POC 29 % PCV (42-52); Hemodilution- POC Yes; Hemoglobin Calculated - POC 10.0; Ionized Calcium - POC 1.08 mmol/L (1.15-1.33); Lactate - POC 5.87 mmol/L (0.36-0.75); O2 Saturation %Calculated-POC 100.0 % (94-98); PCO2 - POC 40 mmHg (35-48); PO2 - POC 382 mmHg (83-108); Potassium - POC 4.1 mmol/L (3.5-5.1); Sodium - POC 141 mmol/L (136-145); Specimen Type - POC Arterial; pH - POC 7.35 (7.35-7.45)
[2025-04-07 05:59] LABS: ACT+ - POC 444 Seconds (82-134)
[2025-04-07 06:12] LABS: ACT+ - POC 504 Seconds (82-134)
[2025-04-07 06:20] LABS: B.E. - POC 0.1 mmol/L; Glucose - POC 254 mg/dl (70-99); HCO3 - POC 26 mmol/L (21-28); Hematocrit - POC 29 % PCV (42-52); Hemodilution- POC Yes; Hemoglobin Calculated - POC 10.0; Ionized Calcium - POC 1.11 mmol/L (1.15-1.33); Lactate - POC 5.90 mmol/L (0.36-0.75); O2 Saturation %Calculated-POC 99.9 % (94-98); PCO2 - POC 46 mmHg (35-48); PO2 - POC 315 mmHg (83-108); POC Comment WARM; Potassium - POC 3.5 mmol/L (3.5-5.1); Sodium - POC 143 mmol/L (136-145); Specimen Type - POC Arterial; pH - POC 7.36 (7.35-7.45)
[2025-04-07 06:22] LABS: ACT+ - POC 481 Seconds (82-134)
[2025-04-07 06:32] LABS: ACT+ - POC 494 Seconds (82-134)
[2025-04-07 06:53] LABS: ACT+ - POC 522 Seconds (82-134)
--- NOTE | 2025-04-07 07:00 | ITS.CL.PN ---
Core Driller Helper - Procedure Note
Procedure
Procedure Note:
Right-sided Impella Placement
Date: 04/07/2025
Referring: Ramy Mcdonough M.D.
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
Narrative:
Mr. Huynh was taken to the operating room late in the evening on 04/06/2025 and underwent TAVR explant with AVR/MVR and tricuspid valve debridement for severe infectious endocarditis that had previously been complicated by complete heart block
and A-V dissociation leading to bradycardic ventricular fibrillation arrest. The patient was previously taken to the [facility] for temporary pacemaker prior to undergoing surgery. After prolonged surgery, the patient was struggling to wean from the
cardiopulmonary bypass circuit. A transesophageal echocardiogram suggested that the right ventricle was distended and hypokinetic. The left ventricle appeared underfilled. Dr. Mcdonough called for percutaneous right ventricular VAD.
In CVOR 9, the patient's right internal jugular vein was prepped and draped in standard sterile fashion. The previously placed Cordis was withdrawn over a wire and the Rpella dilator sheaths were advanced successively. The tear-away sheath was
seated in the right internal jugular vein. A 7 Occitan [place]-Varinder catheter was inserted through the right IJ sheath and seated in the right pulmonary artery. A 0.027 wire was advanced through the [place]io[place]-Varinder catheter and into the distal right
pulmonary artery. The [place]ioch-Varinder catheter was withdrawn while maintaining wire position. The Rpella was delivered over the 0.027 wire and seated in the main pulmonary artery with the pigtail deflecting off of the bifurcation point. The wire was
withdrawn and the Rpella was spun up to P4. A pursestring suture was placed and sutured down around the positioning sheath after the tear-away sheath had been removed.
At this point, Dr. Mcdonough begin the process of weaning the patient off of cardiopulmonary bypass with Rpella support. DONOVAN showed good placement with improved filling of the left ventricle.
Please see the operative report from Dr. Mcdonough for full details of the entire surgical procedure.
Conclusions:
1. S/P heroic surgical treatment of multivalve infectious endocarditis, including bioprosthetic (TAVR) valve endocarditis.
2. RV failure with LV underfilling, inability to wean from CPB.
3. S/P Rpella percutaneous RVAD placement via RIJ approach.
Copy To: Ramy Mcdonough M.D., Rajinder Patel M.D.
[2025-04-07 07:05] LABS: B.E. - POC -2.6 mmol/L; Glucose - POC 236 mg/dl (70-99); HCO3 - POC 22 mmol/L (21-28); Hematocrit - POC 29 % PCV (42-52); Hemodilution- POC Yes; Hemoglobin Calculated - POC 9.7; Ionized Calcium - POC 1.08 mmol/L (1.15-1.33); Lactate - POC 6.01 mmol/L (0.36-0.75); O2 Saturation %Calculated-POC 100.0 % (94-98); PCO2 - POC 36 mmHg (35-48); PO2 - POC 411 mmHg (83-108); POC Comment WARM; Potassium - POC 3.4 mmol/L (3.5-5.1); Sodium - POC 141 mmol/L (136-145); Specimen Type - POC Arterial; pH - POC 7.40 (7.35-7.45)
[2025-04-07 07:10] LABS: ACT+ - POC 142 Seconds (82-134)
[2025-04-07 07:59] LABS: B.E. - POC -1.4 mmol/L; Glucose - POC 196 mg/dl (70-99); HCO3 - POC 25 mmol/L (21-28); Hematocrit - POC 28 % PCV (42-52); Hemodilution- POC Yes; Hemoglobin Calculated - POC 9.5; Ionized Calcium - POC 1.06 mmol/L (1.15-1.33); Lactate - POC 6.44 mmol/L (0.36-0.75); O2 Saturation %Calculated-POC 99.9 % (94-98); PCO2 - POC 46 mmHg (35-48); PO2 - POC 355 mmHg (83-108); POC Comment POST; Potassium - POC 3.0 mmol/L (3.5-5.1); Sodium - POC 141 mmol/L (136-145); Specimen Type - POC Arterial; pH - POC 7.34 (7.35-7.45)
--- NOTE | 2025-04-07 08:10 | W.IMMPOSTOP ---
Surgical Immed Post Op Note
-
CARDIAC SURGERY OPERATIVE NOTE:
Preoperative Dx:
History of prior TAVR (26 mm BLANCA 3 valve)
History of atrial fibrillation status post ablation
Congestive heart failure
Chronic back pain
Endocarditis with Enterococcus faecalis bacteremia
Recent bilateral embolic septic emboli to brain without signal preoperative neurodeficit
New complete heart block progressing to bradycardic V-fib arrest status post emergent placement of temporary pacemaking catheter
Discitis
Postoperative Dx:
Same
Dense circumferential intrapericardial adhesions
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
Aortic root abscess
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
3 separate ASD's (2 iatrogenic/PFO)
Tricuspid valve supra annular abscess
Procedures:
Median sternotomy
Lysis of intrapericardial adhesions
Explant of TAVR valve with extensive debridement of aortic valve annulus
Unroofing and pericardial patch repair of aortic root abscess
Placement of partial AVR sutures
Left atriotomy with attempted visual inspection of the mitral valve complicated by significant [id number] bleeding from 3 separate ASD's; primary closure of ASD's
Visual inspection of mitral valve; chordal sparing MVR
AVR
Closure of aortotomy
Closure of atriotomy
Right atriotomy with visual inspection of tricuspid valve
Resection/debridement of tricuspid valve supra annular abscess/vegetation with subsequent pericardial patch repair
Closure of right atriotomy
Placement of bipolar epicardial right ventricular pacing wires x 1
Placement of temporary ventricular and atrial pacing wires
Attempt to wean from cardiopulmonary bypass (unsuccessful secondary to RV dysfunction)
Placement of Impella RP device with subsequent successful wean from cardiopulmonary bypass
Placement of open chest dressing
Surgeon:
Ramy Mcdonough MD
Announcer:
Aliyah Maurer PA-C
Anesthesia:
Timothy Huitron MD
Perfusion:
Driss Periera C.C.P. and Linda Hagan C.C.P.
Implants:
[employer]te [employer], Inspira's Resilia AVR 23 mm; serial #[id number]
[employer]te [employer], Mytrex Resilia 29 mm; serial #[id number]
XenoSure biological patch; reference: E4P6, Lot: [id number]
Medtronic epicardial pacing leads; serial number [id number]
Transfusions:
6 units packed red blood cells
2 packed platelets
Findings:
Upon entry circumferential pericardial adhesions were present. While these were densely spaced, they were relatively thin adhesions with the majority able to be lysed with careful blunt dissection. Total lysis of adhesion time was approximately
30 minutes. I did use a combination of blunt, electrocautery, and sharp dissection.
Bicaval cannulation was employed with a 28 Gabonese metal tipped right angle SVC cannula and a 30 Gabonese straight IVC cannula, there was difficulty emptying the heart throughout this procedure despite placement of caval snares, various
cardiopulmonary bypass circuit manipulations, and aortotomy and left atriotomy. The patient had significant pulmonary venous return which was estimated to be almost 2 L/min via cardiotomy suction return. This complicated visualization of both his
aortic and mitral valves and subsequent valve replacements
There was essentially complete destruction of the patient's prior TAVR valve leaflets. The eagle annulus was relatively preserved with an abscess cavity noted along the noncoronary cusp with progression towards the non-/right junction. This
abscess was unroofed along the majority of its visible length, copiously irrigated, and patched with pericardial patch.
After copious irrigation of the annulus/LVOT, and repaired abscess, the patient is AVR would be completed following his mitral valve replacement with placement of a 23 mm Inspira's Resilia valve secured with 13 interrupted pledgeted valve sutures
and Corknots
The patient's mitral valve pathology was limited to his anterior mitral valve leaflet. There were 2 vegetations present at the anterior leaflet near its annular connection. 1 of these lesions was less adherent than the other. The more medial
lesion had caused underlying destruction of the mitral valve anterior leaflet tissue. When this infectious mass had been removed it was clear that mitral valve replacement would be required. Given the relatively uninvolved posterior leaflet I was
able to perform a cord sparing MVR with placement of a 29 mm Mitris Resilia valve secured with 11 interrupted pledgeted valve sutures and CorKnots. The pledgets were positioned on the ventricular side of the MVR.
The patient's tricuspid valve appeared grossly normal, however just above the attachment of the septal leaflet and the supra annular position of the tricuspid valve there was a vegetation that was associated with an abscess cavity/fistula. I
aggressively debrided this vegetation and performed pericardial patch repair of the defect. The tricuspid valve itself appeared functionally normal and was not addressed surgically.
Given the patient's complete heart block and future need for PPM, I placed bipolar right ventricular pacing so on leads. These were positioned on the anterior RV as well as the diaphragmatic surface of the RV.
I placed temporary bipolar RV and RA pacing wires
Upon weaning from cardiopulmonary bypass support, both the patient's AVR and MVR appeared to be functioning well without any significant paravalvular leaks. There were no intracardiac shunts noted on postprocedure DONOVAN assessment. The patient's RV
however appeared distended and hypokinetic consistent with post cardiotomy RV failure. I reached out to my interventional cardiology colleagues and a Impella RP device was placed for right ventricular mechanical support in standard fashion. With
the RVAD in place, the patient was able to be rapidly weaned from cardiopulmonary bypass with good placement and improved filling of the LV on DONOVAN assessment.
Given the protracted time on CPB and the patient's RV dysfunction, I opted to employ a open chest dressing. This was applied in standard fashion. The patient has 2 vaginal packing strips and 1 strip of Kerlex gauze present in his mediastinum.
There is a sterile sternal towel above this packing
Complications:
Extensive operative interventions required protracted time on cardiopulmonary bypass support
Patient with postoperative/post cardiotomy RV failure requiring placement of an Impella RP VAD and open chest dressing
Condition:
Critical/guarded to CVICU
[2025-04-07 08:25] LABS: ACT-LR - POC 170 Seconds (116-155)
[2025-04-07 08:27] LABS: Glucose - Point of Care 201 mg/dl (70-99)
--- NOTE | 2025-04-07 08:30 | W.PN.ID1 ---
Date of Service
Date of Service: April 07, 2025
Today's Communication
- continue ampicillin 2 gm iv q4 hours, continue ceftriaxone 2 gm IV q12
Assessment / Plan
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
L2/L3 discitis - suspected due to E Faecalis
Probable Septic emboli - Acute embolic infarctions within the brain
- continue ampicillin 2 gm iv q4 hours, continue ceftriaxone 2 gm IV q12
- will require a prolonged course of IV antibiotics and suppression
- blood cultures x2 here are in progress and have grown E faecalis - amp sensitive
- 10/5 repeat blood cultures x2 are in - GPCs in chains
- 10/ blood cultures no growth to date
- repeat blood cultures x2 tomorrow
- follow valve tissue cultures - gram stains reviewed and negative
- brain MR - acute embolic disease with multiple small acute infarcts, subacute intraparenchymal hemorrhage in the lateral right parietal lobe
- MRI of thoracic spine with probable lymphadenopathy, no evidence of discitis/OM at this level;
- lumbar MRI: reactive changes at L2/L3 no abscess or phlegmon
- taken for valve explant last night, laborer car barn activated for temp wire placement, he additionally required Rpella percutaneous RVAD placement
- patient is critically ill
Lower extremity edema
- without evidence of infection
- compression
Chief Complaint
-: Other (endocarditis)
Subjective / Review of Systems
overnight had VT/VF arrest, recovered with two shocks, and amiodarone/liodcaine, no chest compressions, found to have high grade heart block, taken for valve explant last night, laborer car barn activated for temp wire placement, he additionally required
Rpella percutaneous RVAD placement
afebrile
on empinephrine, norepi and vasopressin
tissue cultures were taken last night
Vital Signs / Physical Exam
Vital Signs
Vital Signs
Temp Pulse Resp BP Pulse Ox
98.3 F 71 16 156/130 92
04/06/25 15:51 04/06/25 19:10 04/06/25 15:51 04/06/25 19:10 04/06/25 19:00
Physical Exam
Constitutional: No Acute Distress and Other (sedated)
Cardiovascular: Regular Rate and S1/S2; Negative Murmur or Rub
Pulmonary: Clear and Symmetric; Negative Wheezes or Rales
Gastrointestinal: Soft, Non Tender, Non Distended and Normal Bowel Sounds
Skin: Warm and Dry; Negative Rash or Jaundice
Neurological: Negative Awake
Physical Exam:
four chest tubes, roger, impella and swan noted
Objective Data
Lab Data
PT Cancelled 04/07/25 01:16
INR Cancelled 04/07/25 01:16
APTT Cancelled 04/07/25 01:16
Estimated Creat Clear Cancelled 04/07/25 01:16
Total Bilirubin 0.4 mg/dl (0.2-1.3) 04/06/25 03:41
AST 37 U/L (17-59) 04/06/25 03:41
ALT 42 U/L (0-50) 04/06/25 03:41
Alkaline Phosphatase 133 U/L (38-126) H 04/06/25 03:41
Most recent labs reviewed.
Micro Results:
04/06/25 23:05 Tissue Culture - Pending
Valve Gram Stain - Pending
04/07/25 02:23 Wound Culture - Pending
Valve Gram Stain - Pending
04/06/25 23:05 Fungal Culture - Pending
Valve
04/06/25 23:05 Anaerobic Culture - Pending
Valve
04/06/25 23:59 Wound Culture - Pending
Valve Gram Stain - Pending
04/07/25 02:23 Fungal Culture - Pending
Valve
04/07/25 02:23 Anaerobic Culture - Pending
Valve
04/03/25 00:24 Blood Culture - Final
Blood/Venous Enterococcus faecalis
Gram Stain - Final
04/02/25 23:04 Blood Culture - Preliminary
Blood/Venous Enterococcus faecalis
Gram Stain - Final
04/04/25 10:00 Blood Culture - Preliminary
Blood/Venous No Growth in 48 hours- Final report to follow
04/06/25 09:49 Blood Culture - Pending
Blood/Venous
04/06/25 09:02 Blood Culture - Pending
Blood/Venous
04/04/25 11:39 Blood Culture - Preliminary
Blood/Venous Positive culture in progress
Gram Stain - Preliminary
04/02/25 23:04 MRSA Screen - Final
Nose No Methicillin Resistant Staphylococcus aureus isolated.
[2025-04-07 08:39] LABS: B.E. -5.9 mmol/L; HCO3 22.0 mmol/L (21-28); O2 Saturation % 100.0 % (94-98); PCO2 55 mmHg (35-48); PO2 267 mmHg (83-108); Potassium 3.3 mMOL/L (3.5-5.1)
[2025-04-07 08:48] LABS: INR 2.36; PT 26.3 Sec (11.4-14.6)
[2025-04-07 08:49] LABS: APTT 40.3 Sec (23.4-35.0); Fibrinogen 291 MG/DL (199-459); Hematocrit 26.6 % (39.0-52.0); Hemoglobin 8.7 g/dL (13.0-18.0); Mean Corp Hgb Conc. 32.7 g/dL (33.0-37.0); Mean Corpuscular Volume 87.8 fL (80.0-94.0); Platelet Count 175 10^3/uL (130-400); Red Cell Dist. Width 15.2 % (11.5-14.5)
--- NOTE | 2025-04-07 08:50 | CM ---
Reviewed chart. Mr. Huynh is in the operating room today. Prior to admission he resides with his spouse in a spilt level home with three steps to enter. Prior to admission he was independent with adls but uses a walker or single point cane to
ambulate. He has a walker and single point cane at home. Will need to see his functional level to see if he will have any skilled care needs. Will need to check if he will need media planner IV ABX. If he needs inpatient rehab, will need auth. with
his insurance. Medical work-up in progress. The discharge plan is to go to some level of inpatient rehab. if indicated, bed available and approved by insurance.
[2025-04-07] MEDS: ADRENALIN 250 IV (08:55)
[2025-04-07] MEDS: SODIUM BICARBONATE 50 MEQ IV (08:55)
[2025-04-07] MEDS: SUBLIMAZE 100 MCG IV (08:56)
[2025-04-07] MEDS: SUBLIMAZE 100 IV (08:56)
[2025-04-07 08:58] LABS: D-Dimer 3.24 ug/mlFEU (0.00-0.50)
--- NOTE | 2025-04-07 09:00 | PTCARENOTE ---
Patient received from CVOR s/p TAVR explant/AVR/MVR/multiple ASD closures/Impella RP placement. RIJ sheath w/Impella RP augmenting at P7. R fem venous sheath present - see work list interventions for infusion rates and titrations. 100% AV paced via
cm, SaO2 @ 100%, titrating FiO2 as able. Mediastinal chest tubes x 2, Y-connected to one pleurevac; L and R pleural chest tubes, Y-connected to separate pleurevac, both placed to -20cm suction w/no air leaks noted. Spence catheter to gravity. Median
sternotomy w/Ioban dressing over open chest. Multiple blood products given intraoperatively, see blood bank record. Spence catheter to gravity. OGT placed by GALLO Foster. EKG performed, pcxr obtained, labs sent and reviewed w/GALLO. See work list for full
assessment and interventions performed.
[2025-04-07 09:01] LABS: ALT (SGPT) 50 U/L (0-50); AST (SGOT) 588 U/L (17-59); Albumin 2.3 g/dl (3.5-5.0); Alkaline Phosphatase 71 U/L (38-126); Blood Urea Nitrogen 16 mg/dl (9-20); Calcium 7.6 mg/dl (8.4-10.2); Carbon Dioxide 25 mmol/L (22-30); Chloride 105 mmol/L (98-107); Estimated Creatinine Clearance 84 ml/min; Glucose 185 mg/dl (70-99); Magnesium 2.7 mg/dl (1.6-2.3); Potassium 3.5 mmol/L (3.5-5.1); Sodium 143 mmol/L (135-145); Total Protein 4.1 g/dl (6.3-8.2); eGFR > 60.00
[2025-04-07 09:18] LABS: ACT-LR - POC 170 Seconds (116-155)
[2025-04-07 09:20] LABS: Glucose - Point of Care 209 mg/dl (70-99)
[2025-04-07] MEDS: CALCIUM CHLORIDE 10% SYRINGE 1000 MG IV ×2 (09:22→11:30)
[2025-04-07] MEDS: ANCEF 10 IV ×2 (09:23)
[2025-04-07] MEDS: NSS 500 IV (09:24)
[2025-04-07] MEDS: ADRENALIN 258 MG IV (09:25)
[2025-04-07] MEDS: CRESTOR PO (09:34)
[2025-04-07] MEDS: AMPICILLIN IV ×3 (09:42)
[2025-04-07] MEDS: AMPICILLIN 108 MG IV ×4 (09:42→20:34)
[2025-04-07] MEDS: LEVOPHED 258 MG IV ×2 (09:56→22:01)
[2025-04-07 10:13] LABS: Glucose - Point of Care 187 mg/dl (70-99)
[2025-04-07 10:17] LABS: LDH 1759 U/L (120-246)
[2025-04-07] MEDS: PROTONIX IV 40 MG IV ×2 (10:20→19:58)
[2025-04-07] MEDS: NSS (PRESERVATIVE FREE) 10 ML IV ×2 (10:20→19:58)
[2025-04-07] MEDS: BACTROBAN 2% OINTMENT 1 APPLIC NASAL ×2 (10:20→20:41)
[2025-04-07] MEDS: ROCEPHIN IV (10:21)
[2025-04-07] MEDS: STERILE WATER FOR INJECTION IV (10:21)
[2025-04-07 10:25] LABS: B.E. -5.1 mmol/L; HCO3 21.6 mmol/L (21-28); O2 Saturation % 100.0 % (94-98); PCO2 47 mmHg (35-48); PO2 199 mmHg (83-108); Potassium 3.5 mMOL/L (3.5-5.1); Sodium 139 mMOL/L (136-145)
[2025-04-07 11:04] LABS: ACT-LR - POC 157 Seconds (116-155)
[2025-04-07] MEDS: SODIUM BICARBONATE 100 MEQ IV ×2 (11:04→22:41)
[2025-04-07 11:11] LABS: Glucose - Point of Care 180 mg/dl (70-99)
[2025-04-07] MEDS: KCL 50 IV ×2 (11:30→12:40)
[2025-04-07] MEDS: STERILE WATER FOR INJECTION 20 ML IV ×2 (11:32→22:44)
[2025-04-07] MEDS: ROCEPHIN 2000 MG IV ×2 (11:32→22:44)
[2025-04-07] MEDS: DOBUTREX 250 MG IV (11:47)
--- NOTE | 2025-04-07 12:04 | CON.INTV ---
Consultation
Consultation Request
Date/Time Consultation Requested: 04/07/2025
Date/Time Consultation Performed: 04/07/2025
Requesting Provider: Dr. Mcdonough
Performing Provider: Dr. Nakul Carroll
Medical History
-
History of Present Illness:
84-year-old male with past medical history of severe aortic stenosis status post TAVR in 2022, chronic atrial fibrillation status post cardioversion and ablation, diastolic heart failure, hypertension, hyperlipidemia, type 2 diabetes, obesity,
previous history of alcohol, obstructive sleep apnea, gout, spinal stenosis, chronic back pain, he was sent to the hospital for evaluation of endocarditis on 04/02/2025.
Due to back pain patient underwent MRI that was suggestive of discitis. Has been reporting fevers or chills for the last month or so.
Eventually cultures were positive for Enterococcus faecalis.
DONOVAN eventually performed and demonstrated left atrial abscess.
Cardiothoracic surgery evaluated patient here at [facility].
-
Patient was tentatively scheduled for cardio thoracic surgery 04/07/2025.
On 04/06/2025 developed VT/VF arrest. Patient did receive 2 shocks and had amiodarone and lidocaine load.
It was decided that surgery need to be done on a more urgent basis and patient underwent surgery on 04/06/2025 PM.
Underwent explant of TAVR with extensive debridement of the aortic valve annulus. Primary closure of iatrogenic ASD. Complicated by inability to wean from cardiopulmonary bypass-patient had some RV dysfunction.
Impella device was placed.
Chest was left open.
-
Critical care consulted for postoperative critical care management.
Past Medical History
Past Medical History: Other (See assessment and)
Social History
Tobacco: Non-smoker
Alcohol: Occasional
Drug: None
Family History
Family History: Unable to Obtain
Allergies / Home Medications
Allergies
Allergy/AdvReac Type Severity Reaction Status Date / Time
No Known Allergies Allergy Verified 12/25/24 08:51
Home Medications
�Medication �Instructions �Recorded �Confirmed �Last Taken �Type
finasteride 5 mg tablet 5 mg PO HS Urinary Issue 06/05/22 04/06/25 03/28/25 22:00 History
amiodarone 200 mg tablet 200 mg PO DAILY Heart 12/25/24 04/06/25 03/29/25 09:00 History
Disease/Condition
apixaban 5 mg tablet (Eliquis) 5 mg PO BID Blood Clot 12/25/24 04/06/25 03/28/25 18:00 History
Prevention/Tx
cholecalciferol (vitamin D3) 125 125 mcg PO DAILY Supplement 12/25/24 04/06/25 03/29/25 09:00 History
mcg (5,000 unit) tablet (Vitamin
D3)
diltiazem HCl 180 mg capsule,24 180 mg PO DAILY Heart 12/25/24 04/06/25 03/29/25 09:00 History
hr,extended release Disease/Condition
empagliflozin 25 mg tablet 25 mg PO DAILY Heart 12/25/24 04/06/25 03/29/25 09:00 History
(Jardiance) Disease/Condition
metoprolol succinate 100 mg 50 mg PO DAILY Heart 12/25/24 04/06/25 03/29/25 09:00 History
tablet,extended release 24 hr Disease/Condition
rosuvastatin 10 mg tablet 10 mg PO DAILY High Cholesterol 12/25/24 04/06/25 03/29/25 09:00 History
furosemide 20 mg tablet 60 mg PO DAILY Fluid 01/26/25 04/06/25 03/28/25 09:00 History
Retention/Swelling
metformin 500 mg tablet 1,000 mg PO BID Diabetes 01/26/25 04/06/25 03/28/25 18:00 History
Review of Systems
-
Unable to Obtain full review of systems at this time due to: Patient Intubation and Other (Critically ill)
Vitals / Labs / Diagnostic Testing
Vital Signs
Temp Pulse Resp BP Pulse Ox
97.6 F 80 20 156/130 100
04/07/25 11:00 04/07/25 11:18 04/07/25 11:00 04/06/25 19:10 04/07/25 11:18
Laboratory Results
04/07/25 04/07/25 04/07/25
01:16 08:22 10:08
PT Cancelled 26.3 H
INR Cancelled 2.36
APTT Cancelled 40.3 H
pH Cancelled 7.21 L 7.27 L
pCO2 Cancelled 55 H 47
pO2 Cancelled 267 H 199 H
HCO3 Cancelled 22.0 21.6
O2 Delivery Level Cancelled
Microbiology
04/06/25 09:49 Blood/Venous Blood Culture - Preliminary
No Growth in 24 hours- Final report to follow
04/04/25 10:00 Blood/Venous Blood Culture - Preliminary
No Growth in 72 hours- Final report to follow
04/06/25 09:02 Blood/Venous Blood Culture - Preliminary
No Growth in 24 hours- Final report to follow
04/04/25 11:39 Blood/Venous Blood Culture - Preliminary
Enterococcus faecalis
04/04/25 11:39 Blood/Venous Gram Stain - Preliminary
04/02/25 23:04 Blood/Venous Blood Culture - Preliminary
Enterococcus faecalis
04/02/25 23:04 Blood/Venous Gram Stain - Final
04/07/25 02:23 Valve Fungal Culture - Preliminary
Culture in progress.
Positive cultures are reported as soon as detected.
Final report to follow in four to five weeks.
04/06/25 23:05 Valve Fungal Culture - Preliminary
Culture in progress.
Positive cultures are reported as soon as detected.
Final report to follow in four to five weeks.
04/03/25 00:24 Blood/Venous Blood Culture - Final
Enterococcus faecalis
04/03/25 00:24 Blood/Venous Gram Stain - Final
04/02/25 23:04 Nose MRSA Screen - Final
No Methicillin Resistant Staphylococcus aureus isolated.
Diagnostic Testing:
Physical Exam
-
HEENT: Normocephalic and Other (ET tube in)
Cardiovascular: Regular Rhythm
Respiratory: Clear and Other (Open chest)
GI: Soft and Non Distended
Neurology: Other (Intubated, mechanical ventilation. Sedated)
Skin: Warm
General: Respiratory Distress
Assessment
-
Status post urgent median sternotomy: TAVR explant with debridement of aortic valve annulus.-Dr. Mcdonough 04/07/2025
Complicated by inability to wean from cardiopulmonary bypass: RV failure-Impella RP valve was placed
Open chest dressing
Blood loss anemia-multiple transfusions.
Postoperative mechanical ventilation
-
Status brief VF/VT 04/06/2025
Endocarditis-positive culture with Enterococcus faecalis
DONOVAN 04/02/2025: 3X 0.5 cm laminar shaped area genius echogenicity in the left atrium suspicious for abscess.
Possible aortic root involvement
Brain MRI: Suggestive of septic emboli. 04/03/2025
L3-L4 discitis: Back pain detected on MRI 03/2025
s/p outpatient epidural injections for low back pain-in the outpatient setting
Conditions present prior admission:
TAVR 07/13/2022
History of atrial fibrillation status post PVI 01/26/2025 on chronic anticoagulation/chronic amiodarone therapy
Hypertension/hyperlipidemia
Type 2 diabetes
Obesity
Obstructive sleep apnea on CPAP therapy
Psoriasis
Gout
History of thrombocytopenia
Diverticulosis
Smoke cigars
Former alcohol abuse
BPH
Assessment and plan:
His doing well postop-currently on mechanical ventilation and appears comfortable.
ABG reviewed: 145-(04/07/2020 5:12 PM)
Continue current mechanical ventilation without change.
Continue sedation :Intubated on mechanical ventilation-propofol/Precedex-RASS score 0 to -1
Not ready for spontaneous breathing trial.
-
Open chest
Continue with wound care
Analgesia with IV fentanyl
-
Anemia noted-no evidence of acute bleeding
Multiple packed red blood cells transfusion, platelet transfusion
Continue to follow and transfuse as necessary.
Follow H&H serially
Hemodynamics -multiple vasoactive drugs: Norepinephrine/vasopressin/epinephrine-continue to titrate
Intraoperative RV dysfunction noted.
Impella device in place
PA catheter arterial line in place
Chest tube with no excessive drainage-no air leak.
Chest x-ray reviewed: With no pneumothorax or fluid collections.
Antibiotics continue per infectious disease
Continue to follow blood cultures
Remain nothing by mouth
Head of the bed elevation
Glycemic control per protocol
DVT prophylaxis when safe from the surgical perspective.
Critical care statement: A total of 39 minutes of critical care time was provided for this patient today. This includes management of unstable vital signs, evaluation of the patient at bedside, reviewing the patient's pertinent medical records
including ventilator settings, arterial blood gases, radiographs, microbiology, laboratory evaluations and discussion with primary team, critical care nursing, and respiratory therapy.
--- NOTE | 2025-04-07 12:04 | PN.DE.MGMTRT ---
Insulin Management
- -
04/07/2025 Diabetes Management Consult
Patient transferred from for endocarditis 04/02 Diabetes Management Consult 04/07. PMH Severe aortic stenosis s/p TAVR 2022, chronic A fib s/p cardioversion & ablation, diastolic chf, HTN, HLD, diabetes, obesity, ARNIE, gout, spinal stenosis,
chronic back pain. Patient found to have multiple sites of vegetation. Prior to admission was taking Jardiance 25 mg daily and metformin 1000 BID. A1C 6.9%, cr .8, eGFR > 60.
Patient out of OR this AM s/p lysis of intrapericardial adhesions, aortic root abscess pericardial patch repair, explant of TAVR, replaced AVR. POD 0.
Patient is currently receiving critical care glycemic protocol insulin infusion, requiring 4.5 to 6 units of insulin per hour. Will continue glycemic protocol overnight.
Discussed with nurse.
Will follow.
Diabetes History
- -
Type of Diabetes: 2
Pre-Admission Diabetes Regimen
04/06/25 04/07/25 04/07/25
18:38 01:16 08:22
Creatinine 0.7 Cancelled 0.8
Lab Results
Hemoglobin A1c 6.9 % (4.0-5.6) H 04/03/25 08:19
Insulin Pump Settings
IP Diabetes Regimen
04/06/25 04/06/25 04/06/25
13:42 17:34 18:38
Glucose 155 H
POC Glucose 164 H 137 H
04/07/25 04/07/25 04/07/25
01:16 08:22 08:24
Glucose Cancelled 185 H
POC Glucose 201 H
04/07/25 04/07/25 04/07/25
09:09 10:08 11:00
Glucose
POC Glucose 209 H 187 H 180 H
Meal type: Breakfast
Meal type: Lunch
Amount consumed: 100%
Patient Education
[2025-04-07 12:08] LABS: Glucose - Point of Care 137 mg/dl (70-99)
[2025-04-07] MEDS: NOVOLIN R INSULIN INFUSION 100 IV (12:19)
[2025-04-07 12:22] LABS: Hematocrit 23.1 % (39.0-52.0); Hemoglobin 7.4 g/dL (13.0-18.0); Mean Corp Hgb Conc. 32.0 g/dL (33.0-37.0); Mean Corpuscular Volume 86.5 fL (80.0-94.0); Platelet Count 149 10^3/uL (130-400); Red Cell Dist. Width 15.2 % (11.5-14.5)
--- NOTE | 2025-04-07 12:22 | W.PN.UPDATE ---
Update Note
Progress Note Update
A time-out was completed verifying correct patient, procedure, site, patient positioning, and special equipment. Patient was monitored with continuous bedside EKG, blood pressure, pulse ox readings.
The patient was placed in a dependent position appropriate for central line placement based on the vein to be cannulated. The patient's left neck was prepped and draped in sterile fashion using chlorhexidine, maximum barrier precautions, sterile
gloves, Gown drapes and mask.
Ultrasound was used in real time to localize vein and guide introducer needle. An introducer needle was placed into the left femoral vein using ultrasound guidance. A guidewire was introduced without resistance. Under ultrasound guidance,
confirmation of guidewire in vein was performed before dilation. Dilation was done over guidewire without complications. The 7 Luxembourgish 20 cm triple-lumen catheter was then threaded smoothly over the guide wire and into the central venous system.
The guidewire was removed and appropriate blood return was obtained from each lumen. Each lumen of the catheter was evacuated of any remaining air and flushed freely with sterile saline. The catheter was then secured with a stat lock to the skin and
a sterile occlusive dressing with Biopatch applied. An upright chest film was obtained after the procedure to assess for complications of insertion.
Estimated blood loss: 0 mL
Patient tolerated procedure well. Remains in critical condition.
Pre-procedure diagnosis cardiogenic shock
post procedure diagnosis cardiogenic shock
CPT code 40895
[2025-04-07 12:23] LABS: B.E. -1.3 mmol/L; HCO3 24.3 mmol/L (21-28); O2 Saturation % 99.5 % (94-98); PCO2 44 mmHg (35-48); PO2 145 mmHg (83-108)
--- NOTE | 2025-04-07 12:25 | PTCARENOTE ---
Dr. Eng to bedside, updated to hemodynamics, gtts, status. Infusion rates titrated per physician.
--- NOTE | 2025-04-07 12:26 | W.PN.UPDATE ---
Update Note
Progress Note Update
IV fluids: 2000
Crystalloid:� 1200
U.O.:� 800
UF:� 1500
Blood:� 6uPRBCS, 1plts, cellsaver
Wires:� A+V
Inotropes:� Epi @ 10
Pressors:� Levo @15 Vaso 0.04
Sedatives:� Precedex
�
NEURO: sedated on precedex, pupils +1mm B/L
RESP: #8OT @26cm> 500/60%/14/5. Lungs clear B/L. 2 mediastinal (170cc on arrival) and R/L pleural (60cc on arrival) chest tubes to -20cm suction. Sanguineous drainage
CV: RRR +S1, S2, no S3, no�rub, no murmur. Dermabond to median sternotomy.
ABD: round, soft, no BS
EXT: no edema, +2/4 DP pulses B/L, no femoral bruit, brachial A-line intact
: Spence with clear yellow urine
�
A/P: POD #0 s/p Explant of TAVR valve with extensive debridement of aortic valve, AVR, MVR with OPEN CHEST
- wean FIO2 and vent settings as able
- Titrate pressors for MAPs >65
- Monitor I&Os
- maintain CT to suction
#Cardiogenic Shock
#RV failure requiring impella RP placement
#MODs
-trend labs q6h
-start dobutamine
- insert CVC and trend CVP
- monitor for hemolysis
-t/c inhaled Epo for worsening RV failure
�
# acute surgical blood loss anemia-expected
- trend CBC
- ensure active type and screen
CPT code: 44933 and 12500
total critical care time: 108 minutes
[2025-04-07] MEDS: DIPRIVAN 100 IV ×2 (12:27→20:14)
[2025-04-07 12:33] LABS: INR 2.19; PT 24.8 Sec (11.4-14.6)
[2025-04-07 12:40] LABS: B.E. - POC 1.2 mmol/L; Blood Urea Nitrogen - POC 17 mg/dl (3-120); Chloride - POC 104 mmol/L (96-111); Creatinine - POC 1.11 mg/dl (0.3-1.0); Glucose - POC 124 mg/dl (70-99); HCO3 - POC 27 mmol/L (21-28); Hematocrit - POC 25 % PCV (42-52); Hemodilution- POC Yes; Hemoglobin Calculated - POC 8.3; Ionized Calcium - POC 1.29 mmol/L (1.15-1.33); Lactate - POC 7.32 mmol/L (0.36-0.75); O2 Saturation %Calculated-POC 99.1 % (94-98); PCO2 - POC 46 mmHg (35-48); PO2 - POC 141 mmHg (83-108); Potassium - POC 3.9 mmol/L (3.5-5.1); Sodium - POC 147 mmol/L (136-145); Specimen Type - POC Arterial; pH - POC 7.37 (7.35-7.45)
[2025-04-07 13:00] LABS: Glucose - Point of Care 130 mg/dl (70-99)
[2025-04-07 13:00] LABS: Blood Urea Nitrogen 18 mg/dl (9-20); Calcium 8.9 mg/dl (8.4-10.2); Carbon Dioxide 27 mmol/L (22-30); Chloride 105 mmol/L (98-107); Estimated Creatinine Clearance 75 ml/min; Glucose 125 mg/dl (70-99); Potassium 3.9 mmol/L (3.5-5.1); Sodium 142 mmol/L (135-145); Triglycerides 40 mg/dl (10-149); eGFR > 60.00
[2025-04-07] MEDS: ALBUMIN 5% 250 IV (13:01)
[2025-04-07 13:30] LABS: LDH 2027 U/L (120-246)
[2025-04-07 14:01] LABS: Glucose - Point of Care 120 mg/dl (70-99)
[2025-04-07 14:28] LABS: B.E. -2.0 mmol/L; HCO3 23.1 mmol/L (21-28); O2 Saturation % 99.9 % (94-98); PCO2 40 mmHg (35-48); PO2 178 mmHg (83-108); Potassium 4.3 mMOL/L (3.5-5.1); Sodium 140 mMOL/L (136-145)
[2025-04-07] MEDS: PITRESSIN 100 IV ×3 (14:35→22:23)
[2025-04-07] MEDS: CALCIUM GLUCONATE 100 IV ×3 (14:35→22:38)
--- NOTE | 2025-04-07 14:57 | W.PN.CARDCBS ---
Addendum entered and electronically signed by Kenneth Cai MD 04/07/25 16:28:
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
Bradycardic VF arrest likely from progressive AV conduction system invasion from infection/abscess around the aortic valve.
Now postop day 0 from extensive cardiothoracic surgery which has included explant of infected TAVR valve with extensive debridement of aortic valve annulus, unroofing and pericardial patch repair of aortic root abscess, mitral valve endocarditis
requiring MVR with placement of a 29 mm Mitris Resilia valve, tricuspid valve vegetation with associated abscess cavity/fistula which required debridement and patch repair of the defect.
Remains critically ill on multiple pressors and with Rpella percutaneous RVAD.
Attempting to wean pressors as blood pressure tolerates
Remains with complete heart block requiring pacing via temporary surgical A and V wires and additionally there was placement of bipolar right ventricular pacing sew-on leads in anticipation of patient requiring permanent pacing.
Continue atrial and ventricular pacing support
Decisions regarding need for permanent pacing solution pending clinical course.
Antibiotics as per infectious disease.
Original Note:
Today's Communication / Plan
-
HD stable with pressor support
Impression / Plan
-
PCP: Dr. Gordon Ortega
Cardiology: Dr. Patel
EP: Dr. Duran
Impression:
s/p emergent surgery with TAVR R explant and extensive debridement of aortic valve annulus, unroofing and pericardial patch repair of aortic root abscess, new tissue AVR, chordal sparing MVR 04/07/2025
Transferred from [facility] to [facility] for concern for endocarditis 04/02/2025
Admitted to [facility] with back pain 03/31/2025
Enterococcus faecalis bacteremia seen at [facility] 03/31/2025
Enterococcus faecalis positive blood cultures as recently as 04/04/2025
Abnormal DONOVAN concerning for abscess in the LA from the anterior mitral valve insertion 04/02/2025
s/p TAVR for severe 2022
Chronic back pain with outpatient MRI suggesting L3-L4 discitis 03/2025
s/p outpatient epidural injections for low back pain
Dysarthria and confusion 04/03/2025
Chronic HFpEF
cRBBB with first-degree AV delay
Paroxysmal A-fib
s/p PVI 01/26/2025
Chronic Eliquis OAC
Chronic amiodarone therapy
Hyperlipidemia
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
Testing at [facility] included:
-Outpatient MRI of his back was suggestive of L3-L4 discitis
-Echo on 04/01/25 revealed LVEF 60-65%, moderately dilated left atrium, mild mitral valve regurgitation, mildly elevated pulmonary artery systolic pressure. Aortic valve was not well-visualized, appeared to be bioprosthetic TAVR valve with only
trivial aortic insufficiency and elevated mean gradient of 26 mmHg
-DONOVAN on 04/02/25 revealed moderately dilated left atrium. There was 3 x 0.5 cm laminar shaped heterogenous echogenicity in the left atrium from anterior mitral valve insertion. This can be consistent with abscess. Less likely thrombus. No obvious
fistula was identified. Bioprosthetic aortic valve was identified. Visualization was limited due to acoustic shadow but left coronary leaflet was thickened with echogenicity. No significant AI was noted. . There was normal RV and LV function and
mild MR.
Plan:
-Hospital course thus far: Patient with chronic back pain and receives epidural injections as an outpatient, then had an outpatient MRI for increasing back pain that suggested L3-L4 discitis 03/2025. Patient then admitted to [facility] with back pain
03/31/2025 and blood cultures were positive for Enterococcus faecalis and DONOVAN suggested possible TAVR valve leaflet thickening, but CTA did not show aortic root abscess or obvious LA mass. Patient was transferred to [facility] 04/02/[address] surgery
evaluation and had decompensation late night 04/06/2025 leading to emergent surgery early 04/07/2025. Patient had increasing bradycardia and prolonging of his GA interval with worsening first-degree AV block on 04/06/2025 daytime and later in the day
developed complete heart block and then had VT/VF arrest that responded to cardioversion and was then treated with bolus of amiodarone and lidocaine. Patient did not receive any chest compressions. Patient then had emergent transvenous pacemaker
wire placed. Patient was then taken to the OR where he had TAVR explant and it showed essentially complete destruction of the TAVR valve leaflets, there was extensive debridement of aortic valve annulus and unroofing and pericardial patch repair of
an aortic root abscess. There was lysis of intra pericardial adhesions. Visual inspection of the mitral valve identified vegetations on the anterior leaflet and a cord sparing MVR with placement of a 29 mm Mytrex Resilia valve was performed.
Tricuspid valve appeared grossly normal, but just above the attachment of the septal leaflet there was a vegetation associated with abscess cavity and fistula that was debrided and had pericardial patch repair, but overall TV appeared functionally
normal. RV pacing lead placed.
-RP Impella placed due to RV failure 04/07/2025
-Open chest dressing is in place with plan for delayed closure
-Eventual PPM system
-Levo, vaso, epi and dobutamine running
-Initial blood cultures at [facility] were positive for Enterococcus faecalis. Blood cultures repeated upon arrival to [facility] and were again positive for Enterococcus faecalis on 04/02/2025, 04/03/2025 and on one of the sets drawn 04/04/2025.
Progress Note - Sign Designer
Subjective
Date of Service: April 07, 2025
Intubated and sedated
Objective
Labs:
Labs
Hgb 7.4 g/dL (13.0-18.0) L 04/07/25 12:05
Hct 23.1 % (39.0-52.0) L 04/07/25 12:05
Plt Count 149 10^3/uL (130-400) 04/07/25 12:05
PT 24.8 Sec (11.4-14.6) H 04/07/25 12:05
INR 2.19 04/07/25 12:05
APTT 40.3 Sec (23.4-35.0) H 04/07/25 08:22
Sodium 142 mmol/L (135-145) 04/07/25 12:05
Potassium 3.9 mmol/L (3.5-5.1) 04/07/25 12:05
BUN 18 mg/dl (9-20) 04/07/25 12:05
Creatinine 0.9 mg/dL (0.7-1.3) 04/07/25 12:05
Glucose 125 mg/dl (70-99) H 04/07/25 12:05
Troponins
04/06/25
18:38
Troponin I 0.066 H*
Vital Signs and I&O:
Vital Signs
Temp Pulse Resp BP Pulse Ox
97.2 F 86 20 156/130 100
04/07/25 14:00 04/07/25 14:02 04/07/25 14:00 04/06/25 19:10 04/07/25 14:02
Vital Signs
Temp Pulse Resp BP Pulse Ox
97.2 F 86 20 156/130 100
04/07/25 14:00 04/07/25 14:02 04/07/25 14:00 04/06/25 19:10 04/07/25 14:02
Intake & Output
04/05/25 04/06/25 04/07/25 04/08/25
06:59 06:59 06:59 06:59
Intake Total 824 / 824 680 / 680 216 / 216 2175.2 / 2175.2
Output Total 1125 / 1125 1075 / 1075 450 / 450 725 / 725
Balance -301 / -301 -395 / -395 -234 / -234 1450.2 / 1450.2
Physical Exam
Physical Exam
GEN: Intubated and sedated
LUNGS: Intubated and on the ventilator
CV: AV paced on telemetry.
[2025-04-07 15:02] LABS: Glucose - Point of Care 122 mg/dl (70-99)
[2025-04-07] MEDS: FLEXBUMIN 100 IV (16:56)
[2025-04-07 17:02] LABS: Urine Character Clear (Clear)
[2025-04-07 17:06] LABS: Glucose - Point of Care 106 mg/dl (70-99)
[2025-04-07 17:14] LABS: Urine Squamous Cell 0-2 /LPF (Few)
[2025-04-07 17:15] LABS: Urine Red Blood Cell 0-2 /HPF (0-2)
[2025-04-07 17:54] LABS: B.E. -2.4 mmol/L; HCO3 22.5 mmol/L (21-28); O2 Saturation % 99.2 % (94-98); PCO2 38 mmHg (35-48); PO2 167 mmHg (83-108); Potassium 4.5 mMOL/L (3.5-5.1); Sodium 141 mMOL/L (136-145)
[2025-04-07 18:01] LABS: Hematocrit 22.4 % (39.0-52.0); Hemoglobin 7.2 g/dL (13.0-18.0); Mean Corp Hgb Conc. 32.1 g/dL (33.0-37.0); Mean Corpuscular Volume 86.2 fL (80.0-94.0); Platelet Count 108 10^3/uL (130-400); Red Cell Dist. Width 15.5 % (11.5-14.5)
[2025-04-07 18:05] LABS: APTT 38.0 Sec (23.4-35.0); INR 2.03; PT 23.4 Sec (11.4-14.6)
[2025-04-07 18:10] LABS: Blood Urea Nitrogen 20 mg/dl (9-20); Calcium 9.0 mg/dl (8.4-10.2); Carbon Dioxide 25 mmol/L (22-30); Chloride 104 mmol/L (98-107); Estimated Creatinine Clearance 67 ml/min; Glucose 103 mg/dl (70-99); Potassium 4.5 mmol/L (3.5-5.1); Sodium 142 mmol/L (135-145); eGFR > 60.00
[2025-04-07 18:31] LABS: LDH 1992 U/L (120-246)
--- NOTE | 2025-04-07 19:00 | PTCARENOTE ---
giving one unit of platelets and [address] duarte at bedside
--- NOTE | 2025-04-07 19:00 | PTCARENOTE ---
assumed care of patient @ 1900. received pt laying in bed, intubated, sedated.
Neuro - Pupils pinpoint and nonreactive. Has reportedly not woken up to verbal stimuli or followed any verbal commands yet. Is however initiating his own breaths
CV- 100 percent AV paced with AV wires on DDI at 86. A ma 9, V ma 12. sensing and capturing appropriately. BPs high 90s-low 100s /50s. Goal map >65. Weak but palpable pulses. +2 edema to b/l uppers and lowers. R sided Impella present with 3 points
of fixation, appropriate placement and motor signals on p7 no suction alarms. Heart sounds diminished.
Lungs - Intubated with 8.0 ET tube 23 @ lip, SIMV 20,500,5 PSV 8 Peep 40 % fio2 satting 99 percent, pulling good volumes with good compliance. occasionally initiating own breath. 2 mediastinal and 2 pleural chest tubes to wall suction with sang.
output, no air leak, tidaling or crepitus noted. Lungs severely diminished.
GI- Bs absent. OGT at 61 cm to low int wall suction with dark brown/marroon colored drainage.
- Spence present draining low amounts of clear yellow urine.
Skin- Sternum left open with ioban covering. multiple small skin tears covered with clean new dressings. Protective foam on sacrum
Lines- R femoral venous sheath, L femoral triple lumen, L bracial A line, L arm PIV, RP impella at 47. all central lines zeroed, flushed.
Drips- Recieved on vaso .09, epi 9, dobut 5, levo 15, insulin per protocol, fent at 50, prop at 15.
[2025-04-07 19:05] LABS: Glucose - Point of Care 98 mg/dl (70-99)
[2025-04-07 19:27] LABS: ALT (SGPT) 91 U/L (0-50); AST (SGOT) 683 U/L (17-59); Albumin 3.3 g/dl (3.5-5.0); Alkaline Phosphatase 70 U/L (38-126); Total Protein 5.3 g/dl (6.3-8.2)
[2025-04-07] MEDS: SENOKOT TUBE (20:41)
[2025-04-07 21:00] LABS: Glucose - Point of Care 96 mg/dl (70-99)
--- NOTE | 2025-04-07 21:13 | PTCARENOTE ---
Addendum entered by Victorino Tyson RN 04/07/25 21:46:
2nd FFP hanging
Original Note:
FFP hanging per order
[2025-04-07 22:06] LABS: B.E. -6.8 mmol/L; HCO3 18.5 mmol/L (21-28); O2 Saturation % 99.9 % (94-98); PCO2 35 mmHg (35-48); PO2 133 mmHg (83-108); Potassium 4.8 mMOL/L (3.5-5.1)
[2025-04-07 22:13] LABS: Hematocrit 25.1 % (39.0-52.0); Hemoglobin 8.4 g/dL (13.0-18.0); Platelet Count 101 10^3/uL (130-400)
[2025-04-07 22:17] LABS: INR 2.04; PT 23.5 Sec (11.4-14.6)
[2025-04-07 22:18] LABS: APTT 37.1 Sec (23.4-35.0)
[2025-04-07] MEDS: SUBLIMAZE 50 MCG IV ×2 (22:18→23:18)
[2025-04-07 23:03] LABS: Glucose - Point of Care 107 mg/dl (70-99)
[2025-04-07] MEDS: NITRO-BID 1 INCH TOPICAL (23:20)
--- NOTE | 2025-04-07 23:26 | PTCARENOTE ---
Addendum entered by Victorino Tyson RN 04/08/25 00:16:
additional PRBC hanging
Original Note:
ca and bicarb repleted, additional plasma ordered and hanging. BP stable in the low 100s, map ~ 70. Increasing sedation d/t ventilator desynchrony
[2025-04-08] MEDS: AMPICILLIN 108 MG IV ×6 (00:17→23:17)
[2025-04-08] MEDS: ADRENALIN 258 MG IV ×2 (00:41→16:30)
[2025-04-08 01:01] LABS: Glucose - Point of Care 109 mg/dl (70-99)
[2025-04-08] MEDS: DIPRIVAN 100 IV ×6 (01:10→23:37)
[2025-04-08] MEDS: SUBLIMAZE 100 IV ×3 (01:15→23:20)
[2025-04-08 01:19] LABS: B.E. -8.1 mmol/L; HCO3 17.8 mmol/L (21-28); O2 Saturation % 99.2 % (94-98); O2 Therapy peep 8, fiO2 40%; PCO2 37 mmHg (35-48); PO2 109 mmHg (83-108); Potassium 4.6 mMOL/L (3.5-5.1)
[2025-04-08 01:23] LABS: Hematocrit 26.9 % (39.0-52.0); Hemoglobin 8.9 g/dL (13.0-18.0); Mean Corp Hgb Conc. 33.1 g/dL (33.0-37.0); Mean Corpuscular Volume 86.2 fL (80.0-94.0); Platelet Count 90 10^3/uL (130-400); Red Cell Dist. Width 15.4 % (11.5-14.5)
[2025-04-08 01:33] LABS: INR 2.03; PT 23.4 Sec (11.4-14.6)
[2025-04-08 01:34] LABS: APTT 35.5 Sec (23.4-35.0)
[2025-04-08] MEDS: SODIUM BICARBONATE 100 MEQ IV ×2 (01:39→03:47)
[2025-04-08 01:40] LABS: Blood Urea Nitrogen 21 mg/dl (9-20); Calcium 8.7 mg/dl (8.4-10.2); Carbon Dioxide 20 mmol/L (22-30); Chloride 105 mmol/L (98-107); Estimated Creatinine Clearance 52 ml/min; Glucose 103 mg/dl (70-99); Potassium 4.8 mmol/L (3.5-5.1); Sodium 145 mmol/L (135-145); eGFR 54.51
[2025-04-08 01:59] LABS: LDH 2859 U/L (120-246)
[2025-04-08 02:03] LABS: Glucose - Point of Care 110 mg/dl (70-99)
[2025-04-08] MEDS: FLEXBUMIN IV (02:07)
[2025-04-08] MEDS: SODIUM BICARBONATE 50 MEQ IV (02:07)
[2025-04-08] MEDS: CALCIUM GLUCONATE 100 IV ×7 (02:07→19:01)
[2025-04-08] MEDS: LR 250 ML IV (02:12)
[2025-04-08 03:03] LABS: Glucose - Point of Care 110 mg/dl (70-99)
[2025-04-08 03:30] LABS: B.E. -9.7 mmol/L; O2 Saturation % 98.9 % (94-98); PCO2 28 mmHg (35-48); PO2 131 mmHg (83-108); Potassium 4.6 mMOL/L (3.5-5.1)
[2025-04-08 03:31] LABS: HCO3 15.1 mmol/L (21-28); O2 Therapy 40% fiO2
--- NOTE | 2025-04-08 03:38 | PTCARENOTE ---
Peep dropped to 5 by RT to help with BP per ctpa
[2025-04-08 04:00] LABS: B.E. - POC -6.9 mmol/L; Blood Urea Nitrogen - POC 16 mg/dl (3-120); Chloride - POC 107 mmol/L (96-111); Creatinine - POC 1.14 mg/dl (0.3-1.0); Glucose - POC 92 mg/dl (70-99); HCO3 - POC 17 mmol/L (21-28); Hematocrit - POC 20 % PCV (42-52); Hemodilution- POC No; Hemoglobin Calculated - POC 6.8; Ionized Calcium - POC 0.92 mmol/L (1.15-1.33); Lactate - POC 9.62 mmol/L (0.36-0.75); O2 Saturation %Calculated-POC 98.5 % (94-98); PCO2 - POC 28 mmHg (35-48); PO2 - POC 114 mmHg (83-108); Potassium - POC 4.3 mmol/L (3.5-5.1); Sodium - POC 142 mmol/L (136-145); Specimen Type - POC Arterial; pH - POC 7.39 (7.35-7.45)
[2025-04-08] MEDS: SODIUM BICARBONATE 1150 MEQ IV ×2 (04:07→09:26)
[2025-04-08 04:15] LABS: Glucose - Point of Care 112 mg/dl (70-99)
--- NOTE | 2025-04-08 04:34 | PTCARENOTE ---
weaning vaso per CTPAs titrations. muliple grams of calcium and several bicarb pushes given, bicarb drip started. 1U PRBC ordered and hanging. BP stable. no other change in assessment .
[2025-04-08 05:04] LABS: B.E. -10.3 mmol/L; O2 Saturation % 99.1 % (94-98); PCO2 25 mmHg (35-48); PO2 134 mmHg (83-108); Potassium 4.6 mMOL/L (3.5-5.1)
[2025-04-08 05:06] LABS: HCO3 14.1 mmol/L (21-28)
[2025-04-08] MEDS: SODIUM BICARBONATE 150 MEQ IV ×2 (05:21→06:24)
[2025-04-08 05:29] LABS: INR 2.11; PT 24.1 Sec (11.4-14.6)
[2025-04-08 05:30] LABS: APTT 34.5 Sec (23.4-35.0); Fibrinogen 235 MG/DL (199-459)
[2025-04-08 05:33] LABS: D-Dimer 2.01 ug/mlFEU (0.00-0.50)
[2025-04-08 05:38] LABS: Albumin 3.0 g/dl (3.5-5.0); Alkaline Phosphatase 80 U/L (38-126); Blood Urea Nitrogen 24 mg/dl (9-20); Calcium 9.6 mg/dl (8.4-10.2); Carbon Dioxide 26 mmol/L (22-30); Chloride 104 mmol/L (98-107); Estimated Creatinine Clearance 48 ml/min; Glucose 116 mg/dl (70-99); Magnesium 2.5 mg/dl (1.6-2.3); Potassium 4.4 mmol/L (3.5-5.1); Sodium 147 mmol/L (135-145); Total Protein 4.9 g/dl (6.3-8.2); eGFR 49.87
[2025-04-08 05:46] LABS: ALT (SGPT) 474 U/L (0-50)
[2025-04-08 05:52] LABS: Hematocrit 26.9 % (39.0-52.0); Hemoglobin 9.2 g/dL (13.0-18.0); Mean Corp Hgb Conc. 34.2 g/dL (33.0-37.0); Mean Corpuscular Volume 85.1 fL (80.0-94.0); Platelet Count 91 10^3/uL (130-400); Red Cell Dist. Width 15.4 % (11.5-14.5)
[2025-04-08 05:59] LABS: Glucose - Point of Care 111 mg/dl (70-99)
[2025-04-08 06:00] VITALS: BMI 39.9
[2025-04-08 06:01] LABS: AST (SGOT) 1618 U/L (17-59); LDH 3977 U/L (120-246)
--- NOTE | 2025-04-08 06:22 | W.PN.CT ---
Today's Communication / Plan
-
-pod #1
-drips: Epi 7, Dobut 5, Levo 13, Vaso is off, Propofol 35, Fentanyl 100, Bicarbonate drip @ 250 ml/hr, Insulin
-CT outputs: 2 meds 40/320, 2 pleur 485/1080 in 12/24 hrs
-multiple doses of bicarb and Ca for metabolic acidosis/lactic acidosis and hypocalcemia
-LA trended up to 11.9 this am
-Cr is 1.4 (0.6 preop)
-Hg 9.2 today after multiple pRBCs
-platelets low, but stable 91K today
-likely liver dysfunction, suspect congetion, with coagulopathy- INR 2.1 today
-wean off drips as tolerated
-maintain Cordis, pw, Spence
Assessment / Plan
-
Procedures on 04/06-04/07/[address] Mcdonough, pod #1:
-Median sternotomy
-Lysis of intrapericardial adhesions
-Explant of TAVR valve with extensive debridement of aortic valve annulus
-Unroofing and pericardial patch repair of aortic root abscess
-Placement of partial AVR sutures
-Left atriotomy with attempted visual inspection of the mitral valve complicated by significant [id number] bleeding from 3 separate ASD's; primary closure of ASD's
-Visual inspection of mitral valve; chordal sparing MVR ([employer], Mytrex Resilia 29 mm)
-AVR ([employer], Inspira's Resilia AVR 23 mm)
-Closure of aortotomy
-Closure of atriotomy
-Right atriotomy with visual inspection of tricuspid valve
-Resection/debridement of tricuspid valve supra annular abscess/vegetation with subsequent pericardial patch repair
-Closure of right atriotomy
-Placement of bipolar epicardial right ventricular pacing wires x 1
-Placement of temporary ventricular and atrial pacing wires
-Attempt to wean from cardiopulmonary bypass (unsuccessful secondary to RV dysfunction)
-Placement of Impella RP device with subsequent successful wean from cardiopulmonary bypass
-Placement of open chest dressing
-Endocarditis with Enterococcus faecalis bacteremia
-Recent bilateral embolic septic emboli to brain without signal preoperative neurodeficit
-New complete heart block progressing to bradycardic V-fib arrest, status post emergent placement of temporary pacemaking catheter
-History of prior TAVR (26 mm BLANCA 3 valve)
-History of atrial fibrillation, status post ablation
-Chronic diastolic Congestive heart failure
-Chronic back pain
-Discitis
-HTN/HLD
-DM II
-ARNIE
-DJD/spinal stenosis, hx epidural injections
-Chronic RBBB
-BPH
-Psoriasis
-Gout
-Acute postop distributive shock
-Acute postop hypovolemia with subsequent hypervolemia
-Acute postop blood loss anemia - s/p total 11 pRBCs
-Acute postop coagulopathy/thrombocytopenia - s/p 5 FFPs and 3 platelets
-BONNIE
-Acute postop liver failure
-Acute postop metabolic acidosis/elevated lactic acid
-Acute postop hypocalcemia
-Acute postop metabolic acidosis/ lactic acidosis
Discussed patient care with: Nursing and Care Team
Subjective
-
Date of Service: April 08, 2025
Objective Data
-
PT 24.1 Sec (11.4-14.6) H 04/08/25 04:48
INR 2.11 04/08/25 04:48
APTT 34.5 Sec (23.4-35.0) 04/08/25 04:48
Vital Signs
Vital Signs
Temp Pulse Resp BP Pulse Ox
97.3 F 86 20 156/130 99
04/08/25 05:00 04/08/25 05:05 04/08/25 05:00 04/06/25 19:10 04/08/25 05:05
CT Intake/Output/Weight
04/07/25 04/07/25 04/08/25
06:59 18:59 06:59
Intake Total 2965.4 / 5847.1 2881.7 / 5847.1
Output Total 1304
Balance 1660.4 / 3837.1 2176.7 / 3837.1
SaO2: 99
Physical Exam
-
General: Other (intubated, sedated)
Cardiovascular: Regular rate & rhythm and No Murmurs
Respiratory: Decreased Breath Sounds
Sternum: Stable (open chest)
Incision: Dressing Intact
Extremities: Edema +2
Abdomen: soft, nondistended, + decreased bowel sounds
Data Reviewed
-
Lab Results: Results Reviewed
Medications: Active Meds Reviewed
Chest X-Ray: Report Reviewed and Image Reviewed
ECG: Report Reviewed and Image Reviewed
[2025-04-08] MEDS: NITRO-BID 1 INCH TOPICAL ×4 (06:46→23:19)
[2025-04-08] MEDS: LEVOPHED 258 MG IV ×2 (07:24→16:11)
--- NOTE | 2025-04-08 07:40 | PTCARENOTE ---
Received pt from cage shift manager RN; pt intubated and sedated; Chest open, dressing C/D/I; Pupils 1mm and nonreactive; 100% A/V paced on monitor and VSS; Left Brachial A-line, Left Femoral Triple Lumen, Right Femoral Venous Sheath and PIV x1, all lines
leveled and zeroed; Dobutamine, Insulin, Levo, Epi, Propofol, Fentanyl and Sodium Bicarb infusing see flow sheet for details; Impella 5.5 @ 47cm to Right Neck p7 level, 3 point anchor tie down and dressing C/D/I; Epicardial A/V wires in place and
set to DDI 86/9/12/0.5/2; Heart tones distant; Lungs diminished/rhonchi; ETT 8 23 @ lip; vent setting SIMV 20/500/5/5/40%; CT x4 to -20 wall suction +1 intermittent air leak in Right and Left Pleural chest tubes no in Mediastinal x2; no crepitus
noted; hypoactive bowel sounds; OGT @ 61 patent to low intermittent suction; Spence catheter draining yellow urine; pulses present by Doppler; +3 generalized edema; all surgical sites C/D/I; see nursing documentation for further details.
--- NOTE | 2025-04-08 07:56 | W.PN.ANS.POP ---
Anesthesia Post Operative
- -
Pt remains intubated and on pressors. Epinepherine, Levo, Dobutamine, Insulin infusions continue as does the Impella. Current roger BP 104/59.
[2025-04-08 08:06] LABS: Glucose - Point of Care 137 mg/dl (70-99)
[2025-04-08 08:14] LABS: B.E. 6.1 mmol/L; HCO3 29.5 mmol/L (21-28); O2 Saturation % 99.5 % (94-98); PCO2 37 mmHg (35-48); PO2 97 mmHg (83-108); Potassium 4.2 mMOL/L (3.5-5.1)
--- NOTE | 2025-04-08 08:27 | PN.DE.MGMTRT ---
Insulin Management
- -
04/07/2025 Diabetes Management Consult Follow up
Patient transferred from for endocarditis 04/02 Diabetes Management Consult 04/07. PMH Severe aortic stenosis s/p TAVR 2022, chronic A fib s/p cardioversion & ablation, diastolic chf, HTN, HLD, diabetes, obesity, ARNIE, gout, spinal stenosis,
chronic back pain. Patient found to have multiple sites of vegetation. Prior to admission was taking Jardiance 25 mg daily and metformin 1000 BID. A1C 6.9%, cr .8, eGFR > 60.
POD 1 s/p lysis of intrapericardial adhesions, aortic root abscess pericardial patch repair, explant of TAVR, replaced AVR. Patient is intubated and sedated.
Patient is currently receiving critical care glycemic protocol insulin infusion, requiring 1.1 to 3 units of insulin per hour. Will continue glycemic protocol today and assess in AM for readiness to transition.
Discussed with nurse.
Will follow.
Diabetes History
- -
Type of Diabetes: 2
Pre-Admission Diabetes Regimen
04/07/25 04/07/25 04/07/25
08:22 12:05 17:34
Creatinine 0.8 0.9 1.0
04/08/25 04/08/25
00:57 04:48
Creatinine 1.3 1.4 H
Lab Results
Hemoglobin A1c 6.9 % (4.0-5.6) H 04/03/25 08:19
Insulin Pump Settings
IP Diabetes Regimen
04/07/25 04/07/25 04/07/25
08:22 08:24 09:09
Glucose 185 H
POC Glucose 201 H 209 H
04/07/25 04/07/25 04/07/25
10:08 11:00 12:05
Glucose 125 H
POC Glucose 187 H 180 H 137 H
04/07/25 04/07/25 04/07/25
12:58 14:00 15:01
Glucose
POC Glucose 130 H 120 H 122 H
04/07/25 04/07/25 04/07/25
17:05 17:34 19:04
Glucose 103 H
POC Glucose 106 H 98
04/07/25 04/07/25 04/08/25
20:58 23:01 00:57
Glucose 103 H
POC Glucose 96 107 H
04/08/25 04/08/25 04/08/25
00:58 02:01 03:02
Glucose
POC Glucose 109 H 110 H 110 H
04/08/25 04/08/25 04/08/25
04:12 04:48 05:57
Glucose 116 H
POC Glucose 112 H 111 H
04/08/25
08:04
Glucose
POC Glucose 137 H
Meal type: Breakfast
Patient Education
--- NOTE | 2025-04-08 08:28 | W.PN.ID1 ---
Date of Service
Date of Service: April 08, 2025
Today's Communication
continue current antibiotics
Assessment / Plan
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
L2/L3 discitis - suspected due to E Faecalis
Probable Septic emboli - Acute embolic infarctions within the brain
- 04/07: heroic TAVR removal and replacement, closure of ASDs, MVR, repair of tricuspid valve, unroofing of multiple abscesses; also Rpella and RVAD placement
- continue ampicillin 2 gm iv q4 hours, continue ceftriaxone 2 gm IV q12
- will require a 6 week course of IV antibiotics and life long suppression
- blood cultures x2 here are in progress and have grown E faecalis - amp sensitive
- 04/04 repeat blood cultures x2 are E Faecalis
- 04/06 blood cultures no growth to date
- follow valve tissue cultures - gram stains reviewed and negative
- brain MR - acute embolic disease with multiple small acute infarcts, subacute intraparenchymal hemorrhage in the lateral right parietal lobe
- MRI of thoracic spine with probable lymphadenopathy, no evidence of discitis/OM at this level;
- lumbar MRI: reactive changes at L2/L3 no abscess or phlegmon
- patient is critically ill
Lower extremity edema
- without evidence of infection
- compression
Chief Complaint
-: Other (endocarditis)
Subjective / Review of Systems
afebrile
remains on 3 pressors
remains intubated, sedated
Vital Signs / Physical Exam
Vital Signs
Vital Signs
Temp Pulse Resp BP Pulse Ox
97 F 86 20 156/130 98
04/08/25 08:00 04/08/25 08:10 04/08/25 08:00 04/06/25 19:10 04/08/25 08:10
Physical Exam
Constitutional: No Acute Distress and Other (intubated, sedated)
Cardiovascular: Regular Rate and S1/S2; Negative Murmur or Rub
Pulmonary: Clear and Symmetric; Negative Wheezes or Rales
Gastrointestinal: Soft, Non Tender, Non Distended and Normal Bowel Sounds
Skin: Warm and Dry; Negative Rash or Jaundice
Physical Exam:
four chest tubes, roger, impella, swan, L groin TLC noted
Objective Data
Lab Data
PT 24.1 Sec (11.4-14.6) H 04/08/25 04:48
INR 2.11 04/08/25 04:48
APTT 34.5 Sec (23.4-35.0) 04/08/25 04:48
Estimated Creat Clear 48 ml/min 04/08/25 04:48
Lactic Acid 10.3 mmol/L (0.7-2.0) H* 04/08/25 06:55
Total Bilirubin 2.2 mg/dl (0.2-1.3) H D 04/08/25 04:48
AST 1618 U/L (17-59) H* 04/08/25 04:48
ALT 474 U/L (0-50) H 04/08/25 04:48
Alkaline Phosphatase 80 U/L (38-126) 04/08/25 04:48
Most recent labs reviewed.
Micro Results:
04/07/25 02:23 Wound Culture - Pending
Valve Gram Stain - Preliminary
04/06/25 23:59 Wound Culture - Pending
Valve Gram Stain - Preliminary
04/06/25 23:05 Tissue Culture - Pending
Valve Gram Stain - Preliminary
04/06/25 09:49 Blood Culture - Preliminary
Blood/Venous No Growth in 24 hours- Final report to follow
04/04/25 10:00 Blood Culture - Preliminary
Blood/Venous No Growth in 72 hours- Final report to follow
04/06/25 09:02 Blood Culture - Preliminary
Blood/Venous No Growth in 24 hours- Final report to follow
04/04/25 11:39 Blood Culture - Preliminary
Blood/Venous Enterococcus faecalis
Gram Stain - Preliminary
04/02/25 23:04 Blood Culture - Preliminary
Blood/Venous Enterococcus faecalis
Gram Stain - Final
04/07/25 02:23 Fungal Culture - Preliminary
Valve Culture in progress.
Positive cultures are reported as soon as detected.
Final report to follow in four to five weeks.
04/06/25 23:05 Fungal Culture - Preliminary
Valve Culture in progress.
Positive cultures are reported as soon as detected.
Final report to follow in four to five weeks.
04/06/25 23:05 Anaerobic Culture - Pending
Valve
04/07/25 02:23 Anaerobic Culture - Pending
Valve
04/03/25 00:24 Blood Culture - Final
Blood/Venous Enterococcus faecalis
Gram Stain - Final
04/02/25 23:04 MRSA Screen - Final
Nose No Methicillin Resistant Staphylococcus aureus isolated.
[2025-04-08] MEDS: PROTONIX IV 40 MG IV (08:38)
[2025-04-08] MEDS: NSS (PRESERVATIVE FREE) 10 ML IV (08:38)
[2025-04-08] MEDS: BACTROBAN 2% OINTMENT 1 APPLIC NASAL ×2 (08:39→23:07)
[2025-04-08] MEDS: CRESTOR 10 MG TUBE (08:39)
[2025-04-08] MEDS: SENOKOT 8.6 MG TUBE (08:40)
--- NOTE | 2025-04-08 09:23 | PTCARENOTE ---
Impella placement signal -15/-5 and Impella flow rate 1.2; Suzanne Nunez from Impella in room, manual zeroed Impella with minimal improvement; per Pat if motor signal is staying consistent and no dropping off then the pt is getting the flow from the
Impella; see nursing documentation for further details.
--- NOTE | 2025-04-08 09:27 | W.PN.CARDCBS ---
Addendum entered and electronically signed by Isaias Vizcarra MD 04/08/25 17:28:
I saw and examined the patient.
The Rocket Assembly Operator's note was reviewed and I agree with the note.
Comment:
GEN: No distress, intubated and sedated
HEENT: supple, anicteric, ET tube
LUNGS: scatt rhonchi
CV: Open chest,
ABD: ND
EXT:trace edema
NEURO: sedated
SKIN: No rash
PLan:
Patient with intermittent abnormal flows on RV Impella.
Transesophageal echo performed at bedside. LVEF 50% with normal size right ventricle with mildly reduced RV function. Bioprosthetic mitral and aortic valves functioning appropriately with no clear evidence of endocarditis or significant
regurgitation. Results were discussed with CT surgery attending. RV Impella in place appropriately in pulmonary artery
Continue supportive care with dobutamine, epinephrine, and norepinephrine. Wean as tolerated
Continue to follow flow with RV Impella.
Continue antibiotics.
Continue to follow neurologic exam and mental status.
Creatinine overall stable at 1.5. He is making adequate urine at this time. Weight is up significantly and he is volume overloaded.
Continue Bumex drip to diurese.
CC time 44 minutes
Original Note:
Today's Communication / Plan
-
Possible DONOVAN today, attending to evaluate and is in talks with CT surgery attending
RP Impella remains in place
Impression / Plan
-
PCP: Dr. Gordon Ortega
Cardiology: Dr. Patel
EP: Dr. Duran
Impression:
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
with pericardial patch repair 04/07/2025
Transferred from [facility] to [facility] for concern for endocarditis 04/02/2025
Admitted to [facility] with back pain 03/31/2025
Enterococcus faecalis bacteremia seen at [facility] 03/31/2025
Enterococcus faecalis positive blood cultures as recently as 04/04/2025
Abnormal DONOVAN concerning for abscess in the LA from the anterior mitral valve insertion 04/02/2025
s/p TAVR for severe 2022
Chronic back pain with outpatient MRI suggesting L3-L4 discitis 03/2025
s/p outpatient epidural injections for low back pain
Dysarthria and confusion 04/03/2025
Chronic HFpEF
cRBBB with first-degree AV delay
Paroxysmal A-fib
s/p PVI 01/26/2025
Chronic Eliquis OAC
Chronic amiodarone therapy
Hyperlipidemia
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
Testing at [facility] included:
-Outpatient MRI of his back was suggestive of L3-L4 discitis
-Echo on 04/01/25 revealed LVEF 60-65%, moderately dilated left atrium, mild mitral valve regurgitation, mildly elevated pulmonary artery systolic pressure. Aortic valve was not well-visualized, appeared to be bioprosthetic TAVR valve with only
trivial aortic insufficiency and elevated mean gradient of 26 mmHg
-DONOVAN on 04/02/25 revealed moderately dilated left atrium. There was 3 x 0.5 cm laminar shaped heterogenous echogenicity in the left atrium from anterior mitral valve insertion. This can be consistent with abscess. Less likely thrombus. No obvious
fistula was identified. Bioprosthetic aortic valve was identified. Visualization was limited due to acoustic shadow but left coronary leaflet was thickened with echogenicity. No significant AI was noted. . There was normal RV and LV function and
mild MR.
Plan:
-Hospital course thus far: Patient with chronic back pain and receives epidural injections as an outpatient, then had an outpatient MRI for increasing back pain that suggested L3-L4 discitis 03/2025. Patient then admitted to [facility] with [facility] pain
03/31/2025 and blood cultures were positive for Enterococcus faecalis and DONOVAN suggested possible TAVR valve leaflet thickening, but CTA did not show aortic root abscess or obvious LA mass. Patient was transferred to [facility] 04/02/[address] surgery
evaluation and had decompensation late night 04/06/2025 leading to emergent surgery that extended into early 04/07/2025. Patient had increasing bradycardia and prolonging of his NM interval with worsening first-degree AV block on 04/06/2025 daytime and
later in the day developed complete heart block and then had VT/VF arrest that responded to cardioversion and was then treated with bolus of amiodarone and lidocaine. Patient did not receive any chest compressions. Patient then had emergent
transvenous pacemaker wire placed. Patient was then taken to the OR where he had TAVR explant and it showed essentially complete destruction of the TAVR valve leaflets, there was extensive debridement of aortic valve annulus and unroofing and
pericardial patch repair of an aortic root abscess. There was lysis of intra pericardial adhesions. Visual inspection of the mitral valve identified vegetations on the anterior leaflet and a cord sparing tissue MVR was performed. TV appeared
grossly normal, but just above the attachment of the septal leaflet there was a vegetation associated with abscess cavity and fistula that was debrided and had pericardial patch repair, but overall TV appeared functionally normal. RV pacing lead
placed.
-RP Impella placed due to RV failure 04/07/2025 are currently running at P7 on 04/08/2025
-Epi running at 7
-Levo running at 13
-Dobutamine running at 5
-Vaso weaned overnight
-Open chest dressing is in place with plan for delayed closure
-Eventual PPM system placement using surgically placed RV lead
-Initial blood cultures at [facility] were positive for Enterococcus faecalis. Blood cultures repeated upon arrival to [facility] and were again positive for Enterococcus faecalis on 04/02/2025, 04/03/2025 and on one of the sets drawn 04/04/2025. Blood cultures
without growth from 04/06/2025. Tissue cultures from surgery are pending. ID following and recommends ongoing ampicillin 2 g IV every 4 hours plus ceftriaxone 2 g IV every 12 hours. Patient will need at least 6 weeks of IV antibiotics and he has
been recommended lifelong suppression therapy.
-Family was not at the bedside when I saw patient, but asked nursing to contact me so I can talk with them later on 04/08/2025
Progress Note - [place]
Subjective
Date of Service: April 08, 2025
Intubated and sedated
Objective
Labs:
Labs
Hgb 9.2 g/dL (13.0-18.0) L 04/08/25 04:48
Hct 26.9 % (39.0-52.0) L 04/08/25 04:48
Plt Count 91 10^3/uL (130-400) L 04/08/25 04:48
PT 24.1 Sec (11.4-14.6) H 04/08/25 04:48
INR 2.11 04/08/25 04:48
APTT 34.5 Sec (23.4-35.0) 04/08/25 04:48
Sodium 147 mmol/L (135-145) H 04/08/25 04:48
Potassium 4.4 mmol/L (3.5-5.1) 04/08/25 04:48
BUN 24 mg/dl (9-20) H 04/08/25 04:48
Creatinine 1.4 mg/dL (0.7-1.3) H 04/08/25 04:48
Glucose 116 mg/dl (70-99) H 04/08/25 04:48
Troponins
04/06/25
18:38
Troponin I 0.066 H*
Vital Signs and I&O:
Vital Signs
Temp Pulse Resp BP Pulse Ox
97 F 86 20 156/130 97
04/08/25 09:00 04/08/25 09:00 04/08/25 09:00 04/06/25 19:10 04/08/25 09:00
Vital Signs
Temp Pulse Resp BP Pulse Ox
97 F 86 20 156/130 97
04/08/25 09:00 04/08/25 09:00 04/08/25 09:00 04/06/25 19:10 04/08/25 09:00
Intake & Output
04/06/25 04/07/25 04/08/25 04/09/25
06:59 06:59 06:59 06:59
Intake Total 680 / 680 216 / 216 5954.5 / 6051.2 291.5 / 291.5
Output Total 1075 / 1075 450 / 450 2049 / 2089 105 / 105
Balance -395 / -395 -234 / -234 3904.5 / 3961.2 186.5 / 186.5
Physical Exam
Physical Exam
GEN: Intubated and sedated
LUNGS: Intubated and on the ventilator
CV: AV paced on telemetry.
[2025-04-08] MEDS: SODIUM BICARBONATE 1025 MEQ INF CATH (10:15)
[2025-04-08 10:30] LABS: B.E. 7.6 mmol/L; HCO3 31.0 mmol/L (21-28); O2 Saturation % 98.7 % (94-98); PCO2 38 mmHg (35-48); PO2 88 mmHg (83-108); Potassium 4.1 mMOL/L (3.5-5.1)
[2025-04-08] MEDS: STERILE WATER FOR INJECTION 20 ML IV ×2 (10:38→23:16)
[2025-04-08] MEDS: PROTONIX 100 IV ×2 (10:39→19:15)
[2025-04-08] MEDS: ROCEPHIN 2000 MG IV ×2 (10:39→23:17)
--- NOTE | 2025-04-08 10:48 | PTCARENOTE ---
research laboratory manager team, Echo, Dr Vizcarra at bedside for DONOVAN; drips all remain same see flow sheet for details; A/V paced on monitor and VSS.
[2025-04-08] MEDS: SUBLIMAZE 50 MCG IV (10:56)
--- NOTE | 2025-04-08 11:22 | PTCARENOTE ---
Bedside DONOVAN completed, per MD Impella in correct location; Impella alarming placement signal not reliable; Suzanne Nunez from Impella at bedside and alarm turned off; motor current 288/255; A/V paced and VSS; Fentanyl IV push given during procedure see
MAR for details.
[2025-04-08 11:40] LABS: Glucose - Point of Care 144 mg/dl (70-99)
[2025-04-08 11:40] LABS: Glucose - Point of Care 116 mg/dl (70-99)
[2025-04-08 12:26] LABS: Glucose - Point of Care 126 mg/dl (70-99)
[2025-04-08 12:29] LABS: B.E. 9.3 mmol/L; HCO3 32.5 mmol/L (21-28); O2 Saturation % 98.3 % (94-98); PCO2 38 mmHg (35-48); PO2 85 mmHg (83-108); Potassium 3.9 mMOL/L (3.5-5.1)
--- NOTE | 2025-04-08 12:29 | PTCARENOTE ---
A/V paced on monitor and VSS; Dobutamine, Insulin, Levo, Propofol, Fentanyl, Epi and Protonix infusing see flow sheet for details; labs collected and sent to lab.
--- NOTE | 2025-04-08 12:30 | W.PN.INTV ---
Today's Communication / Plan
Recommendations
Continue mechanical ventilation without change
Continue antibiotics
Continue inotropes/vasopressors-wean down as able depending on hemodynamics
Discontinuation of bicarbonate drip - started last night.
ABG later today
Continue sedation to maintain RASS score 0 to -1
Follow chest tube output
Trend lactic acid
Assessment
-
Status post urgent median sternotomy: TAVR explant with debridement of aortic valve annulus.-Dr. Mcdonough 04/07/2025
Complicated by inability to wean from cardiopulmonary bypass: RV failure-Impella RP valve was placed
Open chest dressing
Blood loss anemia-multiple transfusions.
Postoperative mechanical ventilation
Septic/cardiogenic shock
Postoperative mechanical ventilation/respiratory failure.
-
Status brief VF/VT 04/06/2025
Endocarditis-positive culture with Enterococcus faecalis
DONOVAN 04/02/2025: 3X 0.5 cm laminar shaped area genius echogenicity in the left atrium suspicious for abscess.
Possible aortic root involvement
Brain MRI: Suggestive of septic emboli. 04/03/2025
L3-L4 discitis: Back pain detected on MRI 03/2025
s/p outpatient epidural injections for low back pain-in the outpatient setting
Conditions present prior admission:
TAVR 07/13/2022
History of atrial fibrillation status post PVI 01/26/2025 on chronic anticoagulation/chronic amiodarone therapy
Hypertension/hyperlipidemia
Type 2 diabetes
Obesity
Obstructive sleep apnea on CPAP therapy
Psoriasis
Gout
History of thrombocytopenia
Diverticulosis
Smoke cigars
Former alcohol abuse
BPH
Assessment and plan:
Postoperative day 1
Remains critically ill.
Continue mechanical ventilation-changes will be made accordingly depending on acid-base status.
ABG 7.54/38/85
Continue current mechanical ventilation without change.
Continue sedation :Intubated on mechanical ventilation-continue with sedation target RASS score 0 to -1
Not ready for spontaneous breathing trial.
-
Shock: Hemodynamics -multiple vasoactive drugs: Norepinephrine/epinephrine-continue to titrate
Vasopressin has been discontinued
Currently on bicarbonate drip-consider discontinuation.
Impella device in place
PA catheter arterial line in place
Lactic acid being trended-currently trending lower still elevated at 10.3.
-
Acute kidney injury: Continue hemodynamic support
Follow urinary output
Spence in place
Hypernatremia:Follow close
IVF
-
Open chest-dressings in place
Continue with wound care
Analgesia with IV fentanyl
-
Anemia noted-no evidence of acute bleeding
Multiple packed red blood cells transfusion, platelet transfusion
Continue to follow and transfuse as necessary.
Follow H&H serially
-
No significant coagulopathy.
Continue to follow platelet counts and coagulation times
-
Chest tube with no excessive drainage-no air leak.
Chest x-ray reviewed: With no pneumothorax or fluid collections. Bilateral infiltrates noted. ETT in place. Lines and tubes in place.
Antibiotics continue per infectious disease
Intraoperative pathology-culture positive with Streptococcus
Last blood culture + 04/04/2025
Continue to follow blood cultures
Remain nothing by mouth
Head of the bed elevation
Glycemic control per protocol
DVT prophylaxis when safe from the surgical perspective.
Critical care statement: A total of 36 minutes of critical care time was provided for this patient today. This includes management of unstable vital signs, evaluation of the patient at bedside, reviewing the patient's pertinent medical records
including ventilator settings, arterial blood gases, radiographs, microbiology, laboratory evaluations and discussion with primary team, critical care nursing, and respiratory therapy.
Subjective Dataa
Subjective Data
Date of Service:
Date of Service: April 08, 2025
Chief Complaint: Selling Specialist Follow Up (Status post NM emergent thoracotomy-valve explant with debridement of abscess.)
Subjective:
Critically ill
Remains on vasopressors
Remains on mechanical ventilation
Heavily sedated
Review of Systems
General: Unobtainable - Sedation
Objective Data
Data Reviewed
Vital Signs / I&O / Oxygen:
Vital Signs
Temp Pulse Resp BP Pulse Ox
97.3 F 86 20 96/55 96
04/08/25 12:00 04/08/25 12:19 04/08/25 12:00 04/08/25 12:19 04/08/25 12:05
Intake and Output
04/07/25 04/08/25 04/09/25
06:59 06:59 06:59
Intake Total 216 / 216 5954.5 / 6051.2 608.4 / 608.4
Output Total 450 / 450 0 / 0 215 / 215
Balance -234 / -234 3904.5 / 3961.2 393.4 / 393.4
SaO2 [SIMV] 96
SaO2 96
Nasal Cannula flow liters per 2
minute
Physical Exam
General: Comfortable (On mechanical ventilation)
HEENT: Normocephalic
Cardiovascular: Rub
Respiratory: Clear, ET Tube (No secretion) and Chest Tube (No excessive drainage o air leak.)
GI: Soft and Non Distended
Neurology: Awake
Skin: Warm
Labs/Micro/Reports
Laboratory Results
04/07/25 04/07/25 04/07/25
12:05 14:17 17:34
PT 24.8 H 23.4 H
INR 2.19 2.03
APTT 38.0 H
pH 7.37 7.38
pCO2 40 38
pO2 178 H 167 H
HCO3 23.1 22.5
O2 Delivery Level
04/07/25 04/08/25 04/08/25
21:58 00:57 03:14
PT 23.5 H 23.4 H
INR 2.04 2.03
APTT 37.1 H 35.5 H
pH 7.33 L 7.29 L 7.34 L
pCO2 35 37 28 L
pO2 133 H 109 H 131 H
HCO3 18.5 L 17.8 L 15.1 L*
O2 Delivery Level peep 8, fio2 40% 40% fio2
04/08/25 04/08/25 04/08/25
04:48 08:03 10:09
PT 24.1 H
INR 2.11
APTT 34.5
pH 7.36 7.51 H 7.52 H
pCO2 25 L 37 38
pO2 134 H 97 88
HCO3 14.1 L* 29.5 H 31.0 H
O2 Delivery Level
Microbiology
04/06/25 23:59 Valve Wound Culture - Preliminary
Enterococcus species
04/06/25 23:59 Valve Gram Stain - Preliminary
04/07/25 02:23 Valve Anaerobic Culture - Preliminary
Culture pending. Anaerobic cultures are examined after 3
days incubation. Additional information to follow.
04/07/25 02:23 Valve Wound Culture - Preliminary
04/07/25 02:23 Valve Gram Stain - Preliminary
04/06/25 23:05 Valve Anaerobic Culture - Preliminary
Culture pending. Anaerobic cultures are examined after 3
days incubation. Additional information to follow.
04/06/25 23:05 Valve Tissue Culture - Preliminary
Enterococcus species
04/06/25 23:05 Valve Gram Stain - Preliminary
04/06/25 09:49 Blood/Venous Blood Culture - Preliminary
No Growth in 48 hours- Final report to follow
04/04/25 10:00 Blood/Venous Blood Culture - Preliminary
No Growth in 4 days- Final report to follow
04/06/25 09:02 Blood/Venous Blood Culture - Preliminary
No Growth in 48 hours- Final report to follow
04/02/25 23:04 Blood/Venous Blood Culture - Final
Enterococcus faecalis
04/02/25 23:04 Blood/Venous Gram Stain - Final
04/04/25 11:39 Blood/Venous Blood Culture - Preliminary
Enterococcus faecalis
04/04/25 11:39 Blood/Venous Gram Stain - Preliminary
04/07/25 02:23 Valve Fungal Culture - Preliminary
Culture in progress.
Positive cultures are reported as soon as detected.
Final report to follow in four to five weeks.
04/06/25 23:05 Valve Fungal Culture - Preliminary
Culture in progress.
Positive cultures are reported as soon as detected.
Final report to follow in four to five weeks.
04/03/25 00:24 Blood/Venous Blood Culture - Final
Enterococcus faecalis
04/03/25 00:24 Blood/Venous Gram Stain - Final
[2025-04-08 12:43] LABS: INR 2.25; PT 25.3 Sec (11.4-14.6)
[2025-04-08 12:44] LABS: APTT 33.2 Sec (23.4-35.0)
[2025-04-08 12:51] LABS: Blood Urea Nitrogen 29 mg/dl (9-20); Calcium 9.4 mg/dl (8.4-10.2); Carbon Dioxide 34 mmol/L (22-30); Chloride 101 mmol/L (98-107); Estimated Creatinine Clearance 48 ml/min; Glucose 125 mg/dl (70-99); Potassium 4.0 mmol/L (3.5-5.1); Sodium 147 mmol/L (135-145); eGFR 45.91
[2025-04-08 12:53] LABS: Hematocrit 29.1 % (39.0-52.0); Hemoglobin 10.2 g/dL (13.0-18.0); Mean Corp Hgb Conc. 35.1 g/dL (33.0-37.0); Mean Corpuscular Volume 84.6 fL (80.0-94.0); Platelet Count 88 10^3/uL (130-400); Red Cell Dist. Width 15.0 % (11.5-14.5)
[2025-04-08] MEDS: DOBUTREX 250 MG IV (13:08)
[2025-04-08 13:16] LABS: LDH 2542 U/L (120-246)
[2025-04-08] MEDS: LASIX 40 MG IV (13:52)
[2025-04-08 14:02] LABS: Glucose - Point of Care 109 mg/dl (70-99)
[2025-04-08 14:51] VITALS: BMI 39.9
--- NOTE | 2025-04-08 15:11 | CM ---
Reviewed chart. Received telephone martin from [facility] who confirms Mr Huynh co-pay for home IV ABX is zero . Telephone call to [employer] to check on co-pay for Farxiga and thet co-pay is zero also. Case management will continue
to follow to assist in discharge planning. Prior to admission he resides with his spouse in a spilt level home with three steps to enter. Prior to admission he was independent with adls but uses a walker or single point cane to ambulate. He has a
walker and single point cane at home. Will need to see his functional level to see if he will have any skilled care needs. If he needs inpatient rehab, will need auth. with his insurance. Medical work-up in progress. The discharge plan is to go
to some level of inpatient rehab. if indicated, bed available and approved by insurance.
--- NOTE | 2025-04-08 15:24 | PTCARENOTE ---
MAPs 63 and A/V paced 100% on monitor; updated CTPA since decreasing Epi to 6 mcg/min MAPs low 60s and UO low; Epi titrated back to 7mcg/min; assessment unchanged.
[2025-04-08] MEDS: NOVOLIN R INSULIN INFUSION 100 IV (15:51)
--- NOTE | 2025-04-08 15:54 | PTCARENOTE ---
Dr Mcdonough and CTPA at bedside; Vaso restarted at 0.02 units/min and Epi titrated down to 6 mcg/min; awaiting orders for Bumex drip for CTPA.
[2025-04-08 16:03] LABS: Glucose - Point of Care 111 mg/dl (70-99)
[2025-04-08] MEDS: PITRESSIN 100 IV (16:12)
[2025-04-08] MEDS: BUMEX 100 IV (16:57)
--- NOTE | 2025-04-08 17:32 | W.PN.CT.PHOT ---
CVOR Photos
-
Photos:
looking into aortic valve (TAVR) with vegetation
TAVR valve
mitral valve vegetations
aortic root after TAVR removal
tricuspid vegetation
[2025-04-08 17:43] LABS: Glucose - Point of Care 104 mg/dl (70-99)
--- NOTE | 2025-04-08 17:44 | PTCARENOTE ---
Vaso increased to 0.03 units/min; assessment unchanged; see flow sheet on current drips; pt turned and CHG wipes provided; A/V paced and MAP 66.
[2025-04-08 17:57] LABS: B.E. 8.5 mmol/L; HCO3 31.6 mmol/L (21-28); O2 Saturation % 97.2 % (94-98); PCO2 37 mmHg (35-48); PO2 79 mmHg (83-108); Potassium 3.9 mMOL/L (3.5-5.1); Sodium 145 mMOL/L (136-145)
[2025-04-08 18:08] LABS: APTT 33.4 Sec (23.4-35.0)
[2025-04-08 18:10] LABS: Hematocrit 29.0 % (39.0-52.0); Hemoglobin 10.0 g/dL (13.0-18.0); Mean Corp Hgb Conc. 34.5 g/dL (33.0-37.0); Mean Corpuscular Volume 83.3 fL (80.0-94.0); Platelet Count 92 10^3/uL (130-400); Red Cell Dist. Width 15.3 % (11.5-14.5)
[2025-04-08 18:17] LABS: Blood Urea Nitrogen 33 mg/dl (9-20); Calcium 9.2 mg/dl (8.4-10.2); Carbon Dioxide 35 mmol/L (22-30); Chloride 102 mmol/L (98-107); Estimated Creatinine Clearance 43 ml/min; Glucose 99 mg/dl (70-99); Potassium 3.9 mmol/L (3.5-5.1); Sodium 147 mmol/L (135-145); eGFR 39.51
[2025-04-08 18:39] LABS: LDH 2170 U/L (120-246)
--- NOTE | 2025-04-08 19:00 | PTCARENOTE ---
assumed care of patient @ 1900. received pt laying in bed, intubated, sedated.
Neuro - Pupils pinpoint and nonreactive. Did move hands and feet earlier but did not follow any verbal commands yet.
CV- 100 percent AV paced with AV wires on DDI at 86. A ma 9, V ma 12. problems today sensing and capturing, appears appropriate currently. BPs high 90s-low 100s /50s. Goal map >65. Weak but palpable pulses. +4 edema to b/l uppers and lowers. R sided
Impella present with 3 points of fixation, Placement sensor broken, whole team is aware, going by motor current >280 to confirm function. Motor current currently> 280. on p7 no suction alarms. Heart sounds diminished.
Lungs - Intubated with 8.0 ET tube 23 @ lip, SIMV 20,500,5 PSV 5 Peep 40 % fio2 satting 95 percent, pulling good volumes with good compliance. 2 mediastinal and 2 pleural chest tubes to wall suction with sang. output, +1 intermittent air leak to
pleural, no tidaling or crepitus noted. Lungs severely diminished with scattered rhonci.
GI- Bs absent. OGT at 61 cm to low int wall suction with dark brown/marroon colored drainage.
- Spence present draining low amounts of clear yellow urine.
Skin- Sternum left open with ioban covering. multiple small skin tears covered with clean new dressings. Protective foam on sacrum
Lines- R femoral venous sheath, L femoral triple lumen, L bracial A line, L arm PIV, R arm PIV, RP impella at 47. all central lines zeroed, flushed.
Drips- Recieved on vaso .03, epi 6,, dobut 5, levo 16, insulin per protocol, fent at 100, prop at 30.
--- NOTE | 2025-04-08 19:30 | PTCARENOTE ---
pt transported to cardiac catheterization technician with several staff members for transvenous pacing wires
--- NOTE | 2025-04-08 19:41 | PTCARENOTE ---
At 1815 Epicardial A/V wires not capturing on monitor and A-line pressures 80s; updated CTPA and in room; Anitra Daniels RN also in room to help trouble shoot pacer; Epicardial settings changed to DDI 86/12/22/0.5/2; pacer continues to not capture
properly; CTPA updated Dr Mcdonough and cathead operator team called in for right femoral venous sheath temp pacer; cathead operator team at bedside and pt taken to cathead operator with team; bedside report given to cathead operator RN; handoff report also given to operating room aide RN.
--- NOTE | 2025-04-08 20:12 | ITS.CL.CATH ---
Linoleum Layer Apprentice - Catheterization
Cardiac Catheterization
Procedure Report:
TRANSVENOUS PACEMAKER REPORT
�
Date of Procedure: April 08, 2025
�
Referring: Dr. Ramy Mcdonough
�
PROCEDURES:
1. Placement of temporary transvenous pacemaker via right common femoral venous sheath
�
INDICATION: Complete heart block, pacemaker dependent with intermittent loss of capture via external pacemaker surgical wires with CT surgery team requesting placement of a temporary transvenous pacemaker via sheath in place in the right common
femoral vein.
�
ACCESS: Right common femoral vein
�
PROCEDURE DETAIL: Discussion was had with Dr. Ramy Mcdonough given potential risk for infection with recent valve replacements however in the setting of significant coagulopathy with limited access availability there was concern about risk for
bleeding and therefore decision was made to use existing sheath in the right common femoral vein. The existing sheath was extensively prepped using multiple cold preps and Betadine. A temporary pacemaker wire with sterile cover was inserted through
the existing sheath. The tip of the pacemaker was advanced into the apex of the right ventricle. The pacemaker was turned on at 120 bpm at 20 mA. The current was serially decreased showing good capture at 1 mA. The current was increased to 10 mA
and the rate decreased to VVI 60 bpm. The sterile cover was secured and the sheath was covered with two opposing tegaderm dressings. The patient was transferred to [facility] in stable condition.
CONCLUSIONS
1. Successful placement of temporary transvenous pacemaker via right common femoral vein.
RECOMMENDATIONS
1. Daily morning chest x-ray to assess placement.
2. Please allow for minimal manipulation to avoid potential dislodgment.
�
Nolvia Eason MD, [facility], [facility]
Copy to: Ramy Mcdonough M.D., Toro Garcia M.D., Rajinder Patel M.D., Tomas Ortega M.D.
�
�
�
�
�
�
--- NOTE | 2025-04-08 20:30 | PTCARENOTE ---
pt returned from collaborating supervising physician with new transvenous V wire through existing L sheath. CTPA Aliyah making adjustments to pacer boxes once patient returned, discovered patient does in fact have an underlying rhthym NSR in the 80s-90s with bundle branch
block confirmed with EKG. epicardial AV wires unplugged, transvenous V wire set to backup of 60, 10, .8 by CTPA.
[2025-04-08] MEDS: KCL 50 IV (20:42)
[2025-04-08 21:01] LABS: Glucose - Point of Care 99 mg/dl (70-99)
--- NOTE | 2025-04-08 23:00 | PTCARENOTE ---
OGT clogged not draining, removed. new OGT [place] sump inserted and confirmed with auscultation and Xray, now hooked to low intermittent suction.
[2025-04-08 23:02] LABS: Glucose - Point of Care 90 mg/dl (70-99)
[2025-04-08] MEDS: LIDOCAINE 4% PATCH TOPICAL (23:08)
[2025-04-08] MEDS: NSS (PRESERVATIVE FREE) IV (23:09)
[2025-04-08] MEDS: SENOKOT TUBE (23:10)
[2025-04-09] MEDS: LEVOPHED 258 MG IV ×2 (00:19→07:11)
[2025-04-09 00:23] LABS: B.E. 3.3 mmol/L; HCO3 26.3 mmol/L (21-28); O2 Saturation % 98.6 % (94-98); PCO2 33 mmHg (35-48); PO2 88 mmHg (83-108); Potassium 3.5 mMOL/L (3.5-5.1); Sodium 145 mMOL/L (136-145)
--- NOTE | 2025-04-09 00:25 | PTCARENOTE ---
02 92 % 40% fio2, increased to 60 by RT.
[2025-04-09 00:39] LABS: APTT 33.6 Sec (23.4-35.0)
[2025-04-09 00:42] LABS: Hematocrit 29.8 % (39.0-52.0); Hemoglobin 10.3 g/dL (13.0-18.0); Mean Corp Hgb Conc. 34.6 g/dL (33.0-37.0); Mean Corpuscular Volume 84.2 fL (80.0-94.0); Platelet Count 80 10^3/uL (130-400); Red Cell Dist. Width 15.6 % (11.5-14.5)
[2025-04-09] MEDS: CALCIUM GLUCONATE 100 IV ×2 (00:45→07:02)
[2025-04-09 00:57] LABS: Blood Urea Nitrogen 37 mg/dl (9-20); Calcium 9.1 mg/dl (8.4-10.2); Carbon Dioxide 32 mmol/L (22-30); Chloride 103 mmol/L (98-107); Estimated Creatinine Clearance 40 ml/min; Glucose 108 mg/dl (70-99); Potassium 4.3 mmol/L (3.5-5.1); Sodium 147 mmol/L (135-145); eGFR 36.89
[2025-04-09 01:06] LABS: Glucose - Point of Care 92 mg/dl (70-99)
--- NOTE | 2025-04-09 01:15 | W.PN.CT ---
Today's Communication / Plan
-
Impella (motor�current�280),�P7�
Drips:�Amiodarone,�dobutamine�@ 5,�Epi @ 6,�Levophed��@�20,�vasopressin�@ 0.02�propofol, fentanyl,�Insulin)�
04/08 Placement of temporary transvenous pacemaker via right common femoral venous sheath�for�complete heart block�= (However�return to [place]�rhythm�for most the night),�patient lost�rhythm�at 0515 started�on�back�pacing at 80 bpm�for 15
minutes,�than regained rhythm again.�
CT�outputs�=�2�meds�=�0/55�(55),�2�pleural�=�170/200�(370)�in 12/24 hours��
Vent�adjusted overnight:�SIMV�60/18/500/5�
Reposition�OGT�tube�overnight��
LFT= shocked�liver (trending LFTs)�
Increasing�creat,�started on Bumex�drip,�minimal urine output�despite�intervention, weight�up�40�lbs�pounds.��
Continue�antibiotic�regiment�for�endocarditis�(ampicillin�and ceftriaxone)�
Maintain Cordis, pw, Spence�
Assessment / Plan
-
Procedures on 04/06-04/07/[address] Mcdonough, pod #2:
-Median sternotomy
-Lysis of intrapericardial adhesions
-Explant of TAVR valve with extensive debridement of aortic valve annulus
-Unroofing and pericardial patch repair of aortic root abscess
-Placement of partial AVR sutures
-Left atriotomy with attempted visual inspection of the mitral valve complicated by significant [id number] bleeding from 3 separate ASD's; primary closure of ASD's
-Visual inspection of mitral valve; chordal sparing MVR ([employer], Mytrex Resilia 29 mm)
-AVR ([employer], Inspira's Resilia AVR 23 mm)
-Closure of aortotomy
-Closure of atriotomy
-Right atriotomy with visual inspection of tricuspid valve
-Resection/debridement of tricuspid valve supra annular abscess/vegetation with subsequent pericardial patch repair
-Closure of right atriotomy
-Placement of bipolar epicardial right ventricular pacing wires x 1
-Placement of temporary ventricular and atrial pacing wires
-Attempt to wean from cardiopulmonary bypass (unsuccessful secondary to RV dysfunction)
-Placement of Impella RP device with subsequent successful wean from cardiopulmonary bypass
-Placement of open chest dressing
-Endocarditis with Enterococcus faecalis bacteremia
-Recent bilateral embolic septic emboli to brain without signal preoperative neurodeficit
-New complete heart block progressing to bradycardic V-fib arrest, status post emergent placement of temporary pacemaking catheter
-History of prior TAVR (26 mm BLANCA 3 valve)
-History of atrial fibrillation, status post ablation
-Chronic diastolic Congestive heart failure
-Chronic back pain
-Discitis
-HTN/HLD
-DM II
-ARNIE
-DJD/spinal stenosis, hx epidural injections
-Chronic RBBB
-BPH
-Psoriasis
-Gout
-Acute postop distributive shock
-Acute postop hypovolemia with subsequent hypervolemia
-Acute postop blood loss anemia - s/p total 11 pRBCs
-Acute postop coagulopathy/thrombocytopenia - s/p 5 FFPs and 3 platelets
-BONNIE
-Acute postop liver failure
-Acute postop metabolic acidosis/elevated lactic acid
-Acute postop hypocalcemia
-Acute postop metabolic acidosis/ lactic acidosis
Subjective
-
Date of Service: April 09, 2025
Objective Data
-
PT 25.3 Sec (11.4-14.6) H 04/08/25 12:14
INR 2.25 04/08/25 12:14
APTT 33.6 Sec (23.4-35.0) 04/09/25 00:14
Vital Signs
Vital Signs
Temp Pulse Resp BP Pulse Ox
97.1 F 91 18 96/55 94
04/09/25 01:00 04/09/25 01:10 04/09/25 01:00 04/08/25 12:19 04/09/25 01:10
CT Intake/Output/Weight
04/08/25 04/08/25 04/09/25
06:59 18:59 06:59
Intake Total 2989.1 / 6051.2 1481.7 / 2238.1 756.4 / 2238.1
Output Total 745 / 2090 530 / 875 345 / 875
Balance 2244.1 / 3961.2 951.7 / 1363.1 411.4 / 1363.1
SaO2: 94
Physical Exam
-
General: Other (sedated)
Cardiovascular: Regular rate & rhythm
Respiratory: Clear and Equal
Sternum: Other (open chest)
Extremities: Edema +3
[2025-04-09 01:17] LABS: LDH 2350 U/L (120-246)
[2025-04-09] MEDS: KCL 50 IV ×2 (01:36→02:50)
[2025-04-09 03:15] LABS: Glucose - Point of Care 106 mg/dl (70-99)
[2025-04-09] MEDS: PITRESSIN 100 IV (03:45)
[2025-04-09 04:05] LABS: Glucose - Point of Care 99 mg/dl (70-99)
[2025-04-09] MEDS: NSS 500 IV ×2 (04:24→09:05)
[2025-04-09] MEDS: DIPRIVAN 100 IV (04:38)
[2025-04-09] MEDS: PROTONIX 100 IV (04:50)
[2025-04-09 05:19] LABS: Glucose - Point of Care 95 mg/dl (70-99)
--- NOTE | 2025-04-09 05:30 | SUR.OPER ---
pt lost intrinsic rhythm and pacer kicked in at 60BPM, increased pacer to 80. pt regained NSR in the 90s ~ 10 minutes later
[2025-04-09] MEDS: AMPICILLIN 108 MG IV (05:56)
[2025-04-09 05:59] LABS: B.E. 6.7 mmol/L; HCO3 31.3 mmol/L (21-28); O2 Saturation % 98.8 % (94-98); PCO2 44 mmHg (35-48); PO2 92 mmHg (83-108); Potassium 5.0 mMOL/L (3.5-5.1); Sodium 143 mMOL/L (136-145)
[2025-04-09 06:00] VITALS: BMI 41.7
[2025-04-09 06:05] LABS: Glucose - Point of Care 108 mg/dl (70-99)
[2025-04-09 06:14] LABS: APTT 35.6 Sec (23.4-35.0); INR 2.77; PT 29.7 Sec (11.4-14.6)
[2025-04-09 06:15] LABS: Fibrinogen 355 MG/DL (199-459)
[2025-04-09 06:17] LABS: D-Dimer 2.13 ug/mlFEU (0.00-0.50); Hematocrit 31.1 % (39.0-52.0); Hemoglobin 10.6 g/dL (13.0-18.0); Mean Corp Hgb Conc. 34.1 g/dL (33.0-37.0); Mean Corpuscular Volume 86.4 fL (80.0-94.0); Platelet Count 79 10^3/uL (130-400); Red Cell Dist. Width 15.6 % (11.5-14.5)
[2025-04-09] MEDS: NITRO-BID 1 INCH TOPICAL (06:35)
[2025-04-09 06:43] LABS: ALT (SGPT) 585 U/L (0-50); Albumin 2.8 g/dl (3.5-5.0); Alkaline Phosphatase 123 U/L (38-126); Blood Urea Nitrogen 39 mg/dl (9-20); Calcium 9.5 mg/dl (8.4-10.2); Carbon Dioxide 33 mmol/L (22-30); Chloride 103 mmol/L (98-107); Estimated Creatinine Clearance 35 ml/min; Glucose 109 mg/dl (70-99); Magnesium 2.5 mg/dl (1.6-2.3); Potassium 5.1 mmol/L (3.5-5.1); Sodium 146 mmol/L (135-145); Total Protein 5.1 g/dl (6.3-8.2); eGFR 30.66
[2025-04-09 06:49] LABS: AST (SGOT) 1443 U/L (17-59)
[2025-04-09 06:55] LABS: LDH 3039 U/L (120-246)
[2025-04-09 07:02] LABS: Glucose - Point of Care 123 mg/dl (70-99)
--- NOTE | 2025-04-09 08:00 | PTCARENOTE ---
EKG performed per Lisa Thomas PA orders; EKG resulted A-fib with frequent V-pacing, Right BBB, left axis deviation; EKG sent to Lisa Thomas and WILBERT Foster; A-fib occasional V pacing on monitor and VSS.
--- NOTE | 2025-04-09 08:33 | PN.DE.MGMTRT ---
Insulin Management
- -
04/09/2025: Diabetes Management Follow up
Patient transferred from for endocarditis 04/02 Diabetes Management Consult 04/07. PMH Severe aortic stenosis s/p TAVR 2022, chronic A fib s/p cardioversion & ablation, diastolic chf, HTN, HLD, diabetes, obesity, ARNIE, gout, spinal stenosis,
chronic back pain. Patient found to have multiple sites of vegetation. Prior to admission was taking Jardiance 25 mg daily and metformin 1000 BID. A1C 6.9%, cr .8, eGFR > 60.
POD #2 s/p lysis of intrapericardial adhesions, aortic root abscess pericardial patch repair, explant of TAVR, replaced AVR.
Patient is intubated and sedated, unable to interview. Family at bedside, C discussion in progress.
Currently receiving critical care glycemic protocol insulin infusion, glucose range 92 to 123 requiring 0.8 to 2.6 units of insulin per hour.
Will continue glycemic protocol today and assess need to stop drip after family has made decision.
Discussed with nurse. Will cont to follow.
Diabetes History
- -
Type of Diabetes: 2
Pre-Admission Diabetes Regimen
04/08/25 04/08/25 04/09/25
12:14 17:36 00:14
Creatinine 1.5 H 1.7 H 1.8 H
04/09/25
05:47
Creatinine 2.1 H
Lab Results
Hemoglobin A1c 6.9 % (4.0-5.6) H 04/03/25 08:19
Insulin Pump Settings
IP Diabetes Regimen
04/08/25 04/08/25 04/08/25
10:09 11:35 12:14
Glucose 125 H
POC Glucose 144 H 116 H
04/08/25 04/08/25 04/08/25
12:15 14:00 16:01
Glucose
POC Glucose 126 H 109 H 111 H
04/08/25 04/08/25 04/08/25
17:36 20:50 23:00
Glucose 99
POC Glucose 104 H 99 90
04/09/25 04/09/25 04/09/25
00:14 01:04 03:13
Glucose 108 H
POC Glucose 92 106 H
04/09/25 04/09/25 04/09/25
04:04 05:08 05:47
Glucose 109 H
POC Glucose 99 95
04/09/25 04/09/25
06:02 07:00
Glucose
POC Glucose 108 H 123 H
Patient Education
[2025-04-09 08:34] LABS: Glucose - Point of Care 103 mg/dl (70-99)
--- NOTE | 2025-04-09 08:38 | PTCARENOTE ---
Received pt from telephone betting clerk RN; pt intubated and sedated; Pupils 1mm and nonreactive; A-fib RBBB on monitor and confirmed by EKG and VSS; Transvenous pacing via Right Venous Sheath set to VVI 80/10/0.8 and occasional pacing; Left Brachial A-line,
PIV x2 and Left Femoral Triple Lumen all lines leveled and zeroed; Dobutamine, Levo, Vaso, Epi, Insulin, Prop, Fentanyl, Protonix, and Bumex infusing see flow sheet for details; Impella in Right Neck at p7, 3 point anchor intact and dressing C/D/I;
lungs diminished/rhonchi; ETT 8 and 23 @ lip; vent setting SIMV 60&/5/5/18/500; CT x4 to -20 wall suction +1 intermittent air leak in Right and Left Pleural and no air leak or crepitus noted in Mediastinals; hypoactive bowel sounds; OGT patent at 65
@ lip draining drown/maroon liquid; Spence catheter draining minimal yellow urine CTNP aware; pulses present by Doppler; +4 generalized edema; all surgical sites C/D/I; see nursing documentation for further details.
--- NOTE | 2025-04-09 08:53 | W.PN.ID1 ---
Date of Service
Date of Service: April 09, 2025
Today's Communication
At time of withdrawal of care, discontinue ampicillin 2 gm iv q4 hours and ceftriaxone 2 gm IV q12
Assessment / Plan
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
Sustained E. faecalis bacteremia
Septic emboli - Acute embolic infarctions within the brain
.brain MR - acute embolic disease with multiple small acute infarcts, subacute intraparenchymal hemorrhage in the lateral right parietal lobe
Septic shock with progression multisystem organ failure
L2/L3 discitis - suspected due to E Faecalis
. 03/29/25 lumbar MRI: reactive changes at L2/L3 no abscess or phlegmon
- 04/07: s/p heroic TAVR removal and replacement, closure of ASDs, MVR, repair of tricuspid valve, unroofing of multiple abscesses; also Rpella and RVAD placement
- 04/04 repeat blood cultures x2 are E Faecalis
- 04/06 blood culture remain positive
- OR valve tissue cultures - Enterococcus species
- Pt continues to decline, critically ill. Prognosis is grim.
Family planning to withdraw care today.
- At time of withdrawal of care, discontinue ampicillin 2 gm iv q4 hours and ceftriaxone 2 gm IV q12
Chief Complaint
-: Other (endocarditis)
Subjective / Review of Systems
Remains critically ill.
Vital Signs / Physical Exam
Vital Signs
Vital Signs
Temp Pulse Resp BP Pulse Ox
97.8 F 97 18 96/55 91
04/09/25 08:00 04/09/25 08:10 04/09/25 08:00 04/08/25 12:19 04/09/25 08:10
Physical Exam
Constitutional: Acutely Ill and Other (intubated, sedated)
Cardiovascular: Irregular Rate and S1/S2
Pulmonary: Other (multiple chest tubes)
Gastrointestinal: Soft, Non Tender and Non Distended
Genito-Urinary: Spence (minimal output)
Extremities: Edema
Skin: Warm and Dry; Negative Rash or Jaundice
Physical Exam:
four chest tubes, roger, impella, swan, L groin TLC noted
Objective Data
Lab Data
Lab Results
04/09/25 05:47
PT 29.7 Sec (11.4-14.6) H 04/09/25 05:47
INR 2.77 04/09/25 05:47
APTT 35.6 Sec (23.4-35.0) H 04/09/25 05:47
Estimated Creat Clear 35 ml/min 04/09/25 05:47
Lactic Acid 5.5 mmol/L (0.7-2.0) H* 04/09/25 05:47
Total Bilirubin 2.1 mg/dl (0.2-1.3) H 04/09/25 05:47
AST 1443 U/L (17-59) H* 04/09/25 05:47
ALT 585 U/L (0-50) H* 04/09/25 05:47
Alkaline Phosphatase 123 U/L (38-126) 04/09/25 05:47
Most recent labs reviewed.
Micro Results:
04/06/25 09:49 Blood Culture - Preliminary
Blood/Venous Positive culture in progress
Gram Stain - Preliminary
04/04/25 10:00 Blood Culture - Preliminary
Blood/Venous Positive culture in progress
Gram Stain - Preliminary
04/06/25 23:59 Wound Culture - Preliminary
Valve Enterococcus species
Gram Stain - Preliminary
04/07/25 02:23 Anaerobic Culture - Preliminary
Valve Culture pending. Anaerobic cultures are examined after 3
days incubation. Additional information to follow.
04/07/25 02:23 Wound Culture - Preliminary
Valve Gram Stain - Preliminary
04/06/25 23:05 Anaerobic Culture - Preliminary
Valve Culture pending. Anaerobic cultures are examined after 3
days incubation. Additional information to follow.
04/06/25 23:05 Tissue Culture - Preliminary
Valve Enterococcus species
Gram Stain - Preliminary
04/06/25 09:02 Blood Culture - Preliminary
Blood/Venous No Growth in 48 hours- Final report to follow
04/02/25 23:04 Blood Culture - Final
Blood/Venous Enterococcus faecalis
Gram Stain - Final
04/04/25 11:39 Blood Culture - Preliminary
Blood/Venous Enterococcus faecalis
Gram Stain - Preliminary
04/07/25 02:23 Fungal Culture - Preliminary
Valve Culture in progress.
Positive cultures are reported as soon as detected.
Final report to follow in four to five weeks.
04/06/25 23:05 Fungal Culture - Preliminary
Valve Culture in progress.
Positive cultures are reported as soon as detected.
Final report to follow in four to five weeks.
04/03/25 00:24 Blood Culture - Final
Blood/Venous Enterococcus faecalis
Gram Stain - Final
04/02/25 23:04 MRSA Screen - Final
Nose No Methicillin Resistant Staphylococcus aureus isolated.
Care Review
Plan reviewed with: Nurse
[2025-04-09] MEDS: NSS (PRESERVATIVE FREE) IV (09:04)
[2025-04-09] MEDS: SENOKOT TUBE (09:05)
[2025-04-09] MEDS: CRESTOR TUBE (09:06)
[2025-04-09] MEDS: ROCEPHIN 2000 MG IV (09:11)
[2025-04-09] MEDS: BACTROBAN 2% OINTMENT 1 APPLIC NASAL (09:11)
[2025-04-09] MEDS: STERILE WATER FOR INJECTION 20 ML IV (09:11)
[2025-04-09 10:00] LABS: Glucose - Point of Care 104 mg/dl (70-99)
[2025-04-09] MEDS: SUBLIMAZE 100 IV (10:06)
--- NOTE | 2025-04-09 10:26 | PTCARENOTE ---
Family at [facility] CTNP at bedside; awaiting family decision.
--- NOTE | 2025-04-09 10:30 | W.PN.UPDATE ---
Update Note
Progress Note Update
patient's family was at bedside and we discussed withdrawing care on the patient. They stated that that would align with his wishes. He was made a DNR, vasoactive medications and impella was turned off. patients sedation and pain medications were
continued. Ventilator was turned off and patient ett was removed. Attending Notified of family's decision.
--- NOTE | 2025-04-09 10:51 | RESPNOTE ---
1050- Ventilator turned off and patient extubated as per family wishes. DIRECTOR OF RETAIL OPERATIONS an RN bedside as well as family.
--- NOTE | 2025-04-09 10:55 | W.PN.DEATH ---
Pronouncement of
-
Called to see patient to pronounce.
No spontaneous heart tones or respirations noted.
Patient not responsive to verbal stimuli.
Patient is pronounced .
Time of : 10:50
Date of : 04/09/25
Cause of : Cardiogenic Sock 2/2 RV failure
Family Notified: Yes
--- NOTE | 2025-04-09 11:05 | PTCARENOTE ---
Family, RN, Respiratory and CTNP at bedside; Dobutamine, Insulin, Levo, Vaso, Epi, Protonix and Bumex drips stopped; Fentanyl bolus given; Impella turned off by CTNP; Ventulator turned off by respiratory; no breath sounds or heart tones on monitor;
CTNP confirmed by at 1050; emotional support given to family.
--- NOTE | 2025-04-09 11:47 | PTCARENOTE ---
[facility] called at 1110, paperwork on chart.
--- NOTE | 2025-04-09 13:26 | PTCARENOTE ---
CTPAs at bedside to close chest; CHG wipes provided; pt taken to the morgue.
--- NOTE | 2025-04-12 11:31 | W.DCSUMMARY ---
Discharge Summary
Discharge Data
Date of Admission: 04/02/25
Date of Discharge: 04/09/25
-
Pending Results: No
Hospital Course
84-year-old male with past medical history of severe aortic stenosis status post TAVR in 2022, chronic atrial fibrillation status post cardioversion and ablation, diastolic heart failure, hypertension, hyperlipidemia, type 2 diabetes, obesity,
previous history of alcohol, obstructive sleep apnea, gout, spinal stenosis, chronic back pain, he was sent to the hospital for evaluation of endocarditis on 04/02/2025.
Due to back pain patient underwent MRI that was suggestive of discitis. Has been reporting fevers or chills for the last month or so.
Eventually cultures were positive for Enterococcus faecalis.
DONOVAN eventually performed and demonstrated left atrial abscess.
Cardiothoracic surgery evaluated patient here at [facility].
-
Patient was tentatively scheduled for cardiothoracic surgery 04/07/2025.
On 04/06/2025 developed VT/VF arrest. Patient did receive 2 shocks and had amiodarone and lidocaine load.
It was decided that surgery need to be done on a more urgent basis and patient underwent surgery on 04/06/2025 PM.
Underwent explant of TAVR with extensive debridement of the aortic valve annulus. Primary closure of iatrogenic ASD. Complicated by inability to wean from cardiopulmonary bypass-patient had some RV dysfunction.
Impella device was placed.
Chest was left open and patient returned to the CVICU for the remainder of his recovery. Patient was on high doses of epi, levophed, vasopressin, and dobutamine. Supportive care was provided however on 04/09 patient had decreased urine output. A
family meeting was preformed and it was decided that the patient would be placed on comfort care. Medications were turned off and patient passed on 1050am.
Discharge Plan
-
Patient Disposition:
Date/Time
Date/Time: 04/09/25 14:08
Discharge Date and Time
Discharge Date/Time: 04/09/25 14:08
Print Language: YAKUT
== END 2025-04-09 14:08 | disposition expired | DRG 215 ==
LOC: CVICU 21:06
PROVIDERS: Clinical Nurse Specialist Acute Care; Hospitalist; Internal Medicine; Internal Medicine Cardiovascular Disease; Internal Medicine Interventional Cardiology; Physician Assistant Medical; ADMITTING PHYSICIAN Hospitalist; ATTENDING PHYSICIAN Thoracic Surgery (Cardiothoracic Vascular Surgery); CONSULT PHYSICIAN Internal Medicine Cardiovascular Disease; CONSULT PHYSICIAN Internal Medicine Critical Care Medicine; CONSULT PHYSICIAN Neurological Surgery; CONSULT PHYSICIAN Psychiatry & Neurology Neurology; CONSULT PHYSICIAN Student in an Organized Health Care Education/Training Program; CONSULT PHYSICIAN Thoracic Surgery (Cardiothoracic Vascular Surgery); FAMILY PHYSICIAN Internal Medicine
PROC: 30233N1 Transfusion of Nonautologous Red Blood Cells into Peripheral Vein, Percutaneous Approach (ICD-10-PCS; 2025-04-06)
PROC: 5A1223Z Performance of Cardiac Pacing, Continuous (ICD-10-PCS; 2025-04-06)
PROC: 5A2204Z Restoration of Cardiac Rhythm, Single (ICD-10-PCS; 2025-04-06)
PROC: 02HA3RZ Insertion of Short-term External Heart Assist System into Heart, Percutaneous Approach (ICD-10-PCS; 2025-04-07)
PROC: 30233R1 Transfusion of Nonautologous Platelets into Peripheral Vein, Percutaneous Approach (ICD-10-PCS; 2025-04-07)
PROC: 5A1945Z Respiratory Ventilation, 24-96 Consecutive Hours (ICD-10-PCS; 2025-04-07)
PROC: 5A1221Z Performance of Cardiac Output, Continuous (ICD-10-PCS; 2025-04-07)
PROC: 02Q50ZZ Repair Atrial Septum, Open Approach (ICD-10-PCS; 2025-04-07)
PROC: 30233K1 Transfusion of Nonautologous Frozen Plasma into Peripheral Vein, Percutaneous Approach (ICD-10-PCS; 2025-04-07)
PROC: 02RG08Z Replacement of Mitral Valve with Zooplastic Tissue, Open Approach (ICD-10-PCS; 2025-04-07)
PROC: 02BJ0ZZ Excision of Tricuspid Valve, Open Approach (ICD-10-PCS; 2025-04-07)
PROC: 02NN0ZZ Release Pericardium, Open Approach (ICD-10-PCS; 2025-04-07)
PROC: 5A0221D Assistance with Cardiac Output using Impeller Pump, Continuous (ICD-10-PCS; 2025-04-07)
PROC: 02UJ08Z Supplement Tricuspid Valve with Zooplastic Tissue, Open Approach (ICD-10-PCS; 2025-04-07)
PROC: 05HY33Z Insertion of Infusion Device into Upper Vein, Percutaneous Approach (ICD-10-PCS; 2025-04-07)
PROC: 02RF08Z Replacement of Aortic Valve with Zooplastic Tissue, Open Approach (ICD-10-PCS; 2025-04-07)
PROC: 02UX08Z Supplement Thoracic Aorta, Ascending/Arch with Zooplastic Tissue, Open Approach (ICD-10-PCS; 2025-04-07)
PROC: B24BZZ4 Ultrasonography of Heart with Aorta, Transesophageal (ICD-10-PCS; 2025-04-08)
DX: T82.6XXA Infection and inflammatory reaction due to cardiac valve prosthesis, initial encounter (principal); I33.0 Acute and subacute infective endocarditis; I63.49 Cerebral infarction due to embolism of other cerebral artery; I61.8 Other nontraumatic intracerebral hemorrhage; A41.81 Sepsis due to Enterococcus; I50.23 Acute on chronic systolic (congestive) heart failure; J95.821 Acute postprocedural respiratory failure; R65.21 Severe sepsis with septic shock; I48.20 Chronic atrial fibrillation, unspecified; I44.2 Atrioventricular block, complete; I47.20 Ventricular tachycardia, unspecified; I47.29 Other ventricular tachycardia; Q21.10 Atrial septal defect, unspecified; I76 Septic arterial embolism; Q21.12 Patent foramen ovale; I31.0 Chronic adhesive pericarditis; D62 Acute posthemorrhagic anemia; Z68.41 Body mass index [BMI] 40.0-44.9, adult; D68.8 Other specified coagulation defects; N17.9 Acute kidney failure, unspecified; K91.82 Postprocedural hepatic failure; E87.21 Acute metabolic acidosis; I97.418 Intraoperative hemorrhage and hematoma of a circulatory system organ or structure complicating other circulatory system procedure; Z51.5 Encounter for palliative care; M46.46 Discitis, unspecified, lumbar region; I11.0 Hypertensive heart disease with heart failure; I45.10 Unspecified right bundle-branch block; D69.6 Thrombocytopenia, unspecified; R47.1 Dysarthria and anarthria; Y71.2 Prosthetic and other implants, materials and accessory cardiovascular devices associated with adverse incidents; I49.01 Ventricular fibrillation; I46.2 Cardiac arrest due to underlying cardiac condition; R00.1 Bradycardia, unspecified; I49.3 Ventricular premature depolarization; R57.0 Cardiogenic shock; I50.82 Biventricular heart failure; Z66 Do not resuscitate; E86.1 Hypovolemia; D69.59 Other secondary thrombocytopenia; Y83.8 Other surgical procedures as the cause of abnormal reaction of the patient, or of later complication, without mention of misadventure at the time of the procedure; E83.51 Hypocalcemia; N40.1 Benign prostatic hyperplasia with lower urinary tract symptoms; E66.812 Obesity, class 2; E11.9 Type 2 diabetes mellitus without complications; E78.00 Pure hypercholesterolemia, unspecified; M48.00 Spinal stenosis, site unspecified; I89.0 Lymphedema, not elsewhere classified; G47.33 Obstructive sleep apnea (adult) (pediatric); M10.9 Gout, unspecified; G89.29 Other chronic pain; F10.10 Alcohol abuse, uncomplicated; R35.0 Frequency of micturition; K59.00 Constipation, unspecified; L40.9 Psoriasis, unspecified; F17.290 Nicotine dependence, other tobacco product, uncomplicated; Z79.01 Long term (current) use of anticoagulants; Z79.84 Long term (current) use of oral hypoglycemic drugs
CPT/HCPCS: 33210; 70355; 70450; 70551; 71045; 71275; 72157; 74174; 76000; 80048; 80053; 80061; 80076; 80202; 81003; 81015; 82248; 82330; 82805; 82962; 83036; 83605; 83615; 83735; 83880; 84132; 84302; 84478; 84484; 85014; 85018; 85025; 85027; 85049; 85379; 85384; 85610; 85730; 86850; 86900; 86901; 86920; 87040; 87070; 87075; 87077; 87102; 87154; 87176; 87186; 87205; 88305; 93005; 93312; 93320; 93325; 93880; 93970; 94002; 94003; A9575; J1939; P9016; P9045; P9047; P9059; P9073; Q9967